=== PATIENT | male | born 1930 | race Caucasian/White ===

== ENCOUNTER 2016-07-05 11:14 | Inpatient (IN) | payer OTHER ==
[~2016-07-05] VITALS: Ht 177.8 cm; Wt 55.7 kg
[~2016-07-05 11:14] MED LIST: CEPH500C2 PO; FLUV80TA PO; LUTEIN PO; MULT-506 PO
[2016-07-05] MEDS ORDERED: PANT1TAB48 PO (12:08)
[2016-07-05] MEDS ORDERED: RANI300T2 PO (12:08)
[2016-07-05 12:27] LABS: HEMATOCRIT 35.7 % (42-52); MEAN CELL VOLUME 86.2 fL (80-100); MEAN CORPUSCULAR HEMOGLOBIN 32.4 pg (25-34); MEAN CORPUSCULAR HGB CONC 37.5 g/dl (32-36); MEAN PLATELET VOLUME 8.5 fL (7.4-10.4); PLATELET COUNT 304 K/uL (130-400); RED BLOOD COUNT 4.14 M/uL (4.7-6.1); WHITE BLOOD COUNT 10.55 K/uL (4.8-10.8)
[2016-07-05 12:30] LABS: BUN/CREATININE RATIO 13.5 (10-20); CREATININE 0.83 mg/dl (0.60-1.40); POTASSIUM 3.8 mmol/L (3.5-5.1)
--- NOTE | 2016-07-05 12:39 | DIAGNOSTIC IMAGING REPORT ---
CT OF THE HEAD WITHOUT CONTRAST CLINICAL HISTORY: Altered mental status. Fall. COMPARISON STUDY: No previous studies for comparison. CT DOSE: 614.27 mGy.cm TECHNIQUE: Helical axial images of the head were obtained without IV contrast. Automated exposure control was utilized for the study. FINDINGS: No acute intracranial hemorrhage, midline shift or mass effect is present. Mild atrophy is noted. Ventricular system is unremarkable for age. Basilar cisterns are patent. There are no extra-axial collections. White matter hypodensity suggests small vessel disease. There are no findings to suggest acute dural sinus thrombosis or acute territorial infarct. A suspected mucous retention cyst within the right maxilla sinus is partially imaged. There may be a mucous retention cyst or polyp within the left frontal sinus. There is no opacification of the mastoid air cells. There are no calvarial fractures. IMPRESSION: No acute intracranial findings. Electronically signed by: Burak Loredo M.D. 07/05/2016 12:38 PM Dictated Date/Time: 07/05/2016 12:32 PM
[2016-07-05 13:02] LABS: PARTIAL THROMBOPLASTIN RATIO 1.1; PROTHROMBIN TIME (PATIENT) 10.7 SECONDS (9.0-12.0)
[2016-07-05] MEDS ORDERED: SODIUM CHLORIDE 0.9% 1000ML 1,000 ML IV STA (13:02)
--- NOTE | 2016-07-05 13:32 | DIAGNOSTIC IMAGING REPORT ---
CHEST ONE VIEW PORTABLE CLINICAL HISTORY: Abdominal pain. Confusion. COMPARISON STUDY: Chest radiograph February 09, 2009. FINDINGS: Lung volumes are normal. There is no pneumothorax or pleural effusion. There is no evidence of pulmonary edema. Cardiomediastinal silhouette is normal. There is minimal nodular opacity projecting over the lateral aspect of the right lower hemithorax. IMPRESSION: Mild indeterminate subpleural nodular opacity projecting over the right lower hemithorax. Electronically signed by: Burak Loredo M.D. 07/05/2016 1:30 PM Dictated Date/Time: 07/05/2016 1:27 PM
--- NOTE | 2016-07-05 14:15 | DIAGNOSTIC IMAGING REPORT ---
CT SCAN OF THE ABDOMEN AND PELVIS WITHOUT IV CONTRAST CLINICAL HISTORY: Left-sided abdominal pain. COMPARISON STUDY: Abdominal CT dated 01/22/2016. TECHNIQUE: CT scan of the abdomen and pelvis is performed from the lung bases to the proximal femora. Images are reviewed in the axial, sagittal, and coronal planes. IV contrast was not administered for this examination as per the referring clinician. Note that the examination was performed in suboptimal fashion without oral and IV contrast Automated dose control exposure was utilized. CT DOSE: 477.62 mGycm FINDINGS: Lung bases: The heart is mildly enlarged and without pericardial effusion. The coronary arteries are densely calcified. Chronic interstitial changes seen at both lung bases. There are new subpleural densities present at both lung bases. No airspace consolidation is identified typical for pneumonia and there is no pleural effusion. There is a small to moderate hiatal hernia. Liver: The unenhanced liver is normal in size, contour, and attenuation. There is no intrahepatic biliary ductal dilatation. A 1.7 cm low-attenuation lesion is suggested in the right lobe of liver on image #64. An additional low-attenuation lesion is suggested in the inferior right lobe on image #126 measuring 1.4 cm. Additional subtle hepatic lesions are suggested. These were not clearly seen previously. A subcentimeter cyst in the left lobe and scattered granulomas are unchanged. Gallbladder: Unremarkable. Spleen: Normal in size and attenuation. There are numerous calcified splenic granulomas. Pancreas: The unenhanced pancreas is atrophic. The pancreatic duct is normal in caliber. There is an ill-defined infiltrative lesion is identified which likely arises from the uncinate process. This measures approximately 4.5 x 3 cm as seen on axial image #145. This is located posterior to the superior mesenteric artery which is partially encased, and the lesion extends inferiorly along the mesentery. Adrenal glands: There is nodularity of the adrenal glands. Kidneys: The unenhanced kidneys are atrophic and without hydronephrosis. A 3 cm staghorn calculus is again seen in the left kidney. Additional punctate nonobstructing left calculi identified. A punctate nonobstructing stone is also seen in the right kidney. There is no evidence of contour deforming renal mass lesion. Abdominal vasculature: The abdominal aorta is normal in course and caliber noting advanced atherosclerotic calcification. Bowel: No bowel obstruction is identified. There is advanced colonic diverticulosis. There is mild wall thickening and pericolonic stranding seen involving the distal descending colon on axial image #297. The appearance is consistent with mild acute diverticulitis. No intraperitoneal free air or abscess is seen. The appendix is normal as visualized. Peritoneum: There is no intraperitoneal free air or abdominal ascites. Lymphadenopathy: There is an enlarged gastrohepatic lymph node seen on image #92 which measures 2.7 x 2.2 cm. Prominent retroperitoneal lymph nodes measure up to 8 mm in short axis. Pelvic viscera: Evaluation of the pelvis is significantly degraded by streak artifact from hip arthroplasties. Postoperative change is seen in the groin bilaterally. Fluid is noted along the right inguinal canal. The bladder is normal as visualized. The prostate gland appears enlarged but is not well-visualized. Skeletal structures: The Skeletal structures are osteopenic. Mild to moderate lumbosacral spondylosis is observed. There is a mild and age indeterminate compression deformity of T11. There are bilateral hip arthroplasties. No lytic or blastic lesions are seen. IMPRESSION: 1. Significantly suboptimal examination without oral and IV contrast. 2. There is advanced colonic diverticulosis with evidence of mild acute diverticulitis involving the distal descending colon. There is no intraperitoneal free air or evidence of abscess. 3. There is a large heterogeneous and ill-defined mass lesion measuring up to at least 4.5 cm which likely arises from the uncinate process of the pancreas. This is posterior to the superior mesenteric artery which it partially encases, and abnormal soft tissue extends inferiorly along the mesentery. This should be considered a pancreatic neoplasm until proven otherwise. 4. There are several subtle low-density hepatic lesions identified. These are new from 01/22/2016 and are highly concerning for hepatic metastatic disease. 5. Enlarged gastrohepatic lymph nodes likely represent metastatic disease. 6. 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 Additional tiny nonobstructing renal calculi are seen bilaterally. 7. There are dense subpleural opacities present at both lung bases, new from 01/22/2016. These could represent pleural-based metastatic lesions or possibly the sequelae of pulmonary infarcts. If there is strong clinical concern for pulmonary emboli then a CT angiogram of the chest should be considered. 8. Cardiomegaly and hiatal hernia. 9. Additional findings as above. Electronically signed by: Duc Britt M.D. 07/05/2016 2:13 PM Dictated Date/Time: 07/05/2016 1:38 PM
[2016-07-05] MEDS ORDERED: PIPERACILLIN/TAZOBACTAM 3.375 GM/100ML D5W IV STA (15:11)
--- NOTE | 2016-07-05 15:38 | EMERGENCY ROOM VISIT NOTE ---
History Report prepared by Monisha: Hamzah Reagan Under the Supervision of: Dr. Jose Georges D.O. First contact with patient: 12:47 Chief Complaint: ALTERED MENTAL STATUS Stated Complaint: FALL/AMS/CONFUSION Nursing Triage Summary: Pt presents via ALS from home where he resides with his . Normally, pt is A&Ox4, ambulates independently. Pt was sitting in his chair this AM when he went to stand up, became weak, and fell, denies injury. Pts noticed pt was confused at this time. Pt presents with altered mental status, alert to person only. Afebrile. Denies pain anywhere. Abrasion noted to right forehead. History of Present Illness The patient is a 85 year old male who presents to the Emergency Room with complaints of a sudden falling incident occurring this morning. The patient's states that he went to stand up and then suddenly felt weak resulting in the patient collapsing and hitting his head. She denies that the patient had any seizure or syncope but admits to confusion following the fall. The patient complains of abdominal pain in his lower left quadrant that began months ago. He reports that the pain is a tightness and he has had a loss of appetite and chronic nausea because of it. The patient states that he had a doctor appointment scheduled for today with Dr. Laird due to the tightness in his abdomen. He denies seeing anyone prior to this appointment for the abdominal pain. The patient's states that he was not capable of writing after the injury. The patient states that he takes Pravastatin for cholesterol, Lutein, and Aspirin. The patient's also reports that he has been frequently hiccupping for the last couple of days. The patient denies any pain, headache, fever, or other medical problems. Source of History: patient, spouse/significant other () Onset: this morning Position: other (global) Timing: other (sudden) Associated Symptoms: + abdominal pain, No LOC, No chest pain, No fevers, No headache, No neck pain Note: Associated symptoms: confusion Review of Systems See HPI for pertinent positives & negatives. A total of 10 systems reviewed and were otherwise negative. Past Medical & Surgical Medical Problems: (1) History of kidney stones Surgical Problems: (1) History of cataract surgery (2) History of hernia repair (3) History of hip surgery (4) History of left knee surgery Family History Patient reports no known family medical history. Social History Smoking Status: Never Smoker Marital Status: Housing Status: lives with significant other Occupation Status: retired Current/Historical Medications Scheduled Aspirin (Aspirin EC Low Dose), 81 MG PO DAILY Lutein-Zeaxanthin (Lutein), 1 CAP PO Q2D Pantoprazole (Protonix), 40 MG PO DAILY Pravastatin (Pravachol ), 20 MG PO DAILY Ranitidine Hcl (Zantac), 300 MG PO HS Allergies Coded Allergies: POLLEN (Verified Allergy, Severe, SNEEZE, 07/05/16) Physical Exam Vital Signs Date Time Temp Pulse Resp B/P Pulse Ox O2 Delivery O2 Flow Rate FiO2 07/05/16 14:56 87 18 144/90 96 Room Air 07/05/16 13:11 87 18 140/83 97 Room Air 07/05/16 13:08 90 07/05/16 11:43 134/78 120/70 106/64 07/05/16 11:29 36.6 93 18 155/85 98 Room Air 07/05/16 11:29 98 Room Air 07/05/16 11:27 92 Physical Exam CONSTITUTIONAL/VITAL SIGNS: Reviewed / noted above. GENERAL: Non-toxic in appearance. INTEGUMENTARY: Warm, dry, and [place]. HEAD: Normocephalic. Abrasion to right front temporal area EYES: without scleral icterus or trauma. ENT/OROPHARYNX: clear and moist. LYMPHADENOPATHY/NECK: Is supple without lymphadenopathy or meningismus. RESPIRATORY: Lungs clear and equal. CARDIOVASCULAR: Regular rate and rhythm. GI/ABDOMEN: Tenderness to palpation of left mid abdominal region. Soft. No organomegaly or pulsatile mass. No rebound or guarding. Normal bowel sounds. EXTREMITIES: Warm and well perfused. BACK: No CVA tenderness. NEUROLOGICAL: Intact without focal deficits. PSYCHIATRIC: normal affect. MUSCULOSKELETAL: Normally developed with good muscle tone. Medical Decision & Procedures ER Provider Diagnostic Interpretation: Radiology results as stated below per my review and radiologist interpretation: CT OF THE HEAD WITHOUT CONTRAST CLINICAL HISTORY: Altered mental status. Fall. COMPARISON STUDY: No previous studies for comparison. CT DOSE: 614.27 mGy.cm TECHNIQUE: Helical axial images of the head were obtained without IV contrast. Automated exposure control was utilized for the study. FINDINGS: No acute intracranial hemorrhage, midline shift or mass effect is present. Mild atrophy is noted. Ventricular system is unremarkable for age. Basilar cisterns are patent. There are no extra-axial collections. White matter hypodensity suggests small vessel disease. There are no findings to suggest acute dural sinus thrombosis or acute territorial infarct. A suspected mucous retention cyst within the right maxilla sinus is partially imaged. There may be a mucous retention cyst or polyp within the left frontal sinus. There is no opacification of the mastoid air cells. There are no calvarial fractures. IMPRESSION: No acute intracranial findings. Electronically signed by: Burak Loredo M.D. 07/05/2016 12:38 PM Dictated Date/Time: 07/05/2016 12:32 PM CHEST ONE VIEW PORTABLE CLINICAL HISTORY: Abdominal pain. Confusion. COMPARISON STUDY: Chest radiograph February 09, 2009. FINDINGS: Lung volumes are normal. There is no pneumothorax or pleural effusion. There is no evidence of pulmonary edema. Cardiomediastinal silhouette is normal. There is minimal nodular opacity projecting over the lateral aspect of the right lower hemithorax. IMPRESSION: Mild indeterminate subpleural nodular opacity projecting over the right lower hemithorax. Electronically signed by: Burak Loredo M.D. 07/05/2016 1:30 PM Dictated Date/Time: 07/05/2016 1:[address] SCAN OF THE ABDOMEN AND PELVIS WITHOUT IV CONTRAST CLINICAL HISTORY: Left-sided abdominal pain. COMPARISON STUDY: Abdominal CT dated 01/22/2016. TECHNIQUE: CT scan of the abdomen and pelvis is performed from the lung bases to the proximal femora. Images are reviewed in the axial, sagittal, and coronal planes. IV contrast was not administered for this examination as per the referring clinician. Note that the examination was performed in suboptimal fashion without oral and IV contrast Automated dose control exposure was utilized. CT DOSE: 477.62 mGycm FINDINGS: Lung bases: The heart is mildly enlarged and without pericardial effusion. The coronary arteries are densely calcified. Chronic interstitial changes seen at both lung bases. There are new subpleural densities present at both lung bases. No airspace consolidation is identified typical for pneumonia and there is no pleural effusion. There is a small to moderate hiatal hernia. Liver: The unenhanced liver is normal in size, contour, and attenuation. There is no intrahepatic biliary ductal dilatation. A 1.7 cm low-attenuation lesion is suggested in the right lobe of liver on image #64. An additional low-attenuation lesion is suggested in the inferior right lobe on image #126 measuring 1.4 cm. Additional subtle hepatic lesions are suggested. These were not clearly seen previously. A subcentimeter cyst in the left lobe and scattered granulomas are unchanged. Gallbladder: Unremarkable. Spleen: Normal in size and attenuation. There are numerous calcified splenic granulomas. Pancreas: The unenhanced pancreas is atrophic. The pancreatic duct is normal in caliber. There is an ill-defined infiltrative lesion is identified which likely arises from the uncinate process. This measures approximately 4.5 x 3 cm as seen on axial image #145. This is located posterior to the superior mesenteric artery which is partially encased, and the lesion extends inferiorly along the mesentery. Adrenal glands: There is nodularity of the adrenal glands. Kidneys: The unenhanced kidneys are atrophic and without hydronephrosis. A 3 cm staghorn calculus is again seen in the left kidney. Additional punctate nonobstructing left calculi identified. A punctate nonobstructing stone is also seen in the right kidney. There is no evidence of contour deforming renal mass lesion. Abdominal vasculature: The abdominal aorta is normal in course and caliber noting advanced atherosclerotic calcification. Bowel: No bowel obstruction is identified. There is advanced colonic diverticulosis. There is mild wall thickening and pericolonic stranding seen involving the distal descending colon on axial image #297. The appearance is consistent with mild acute diverticulitis. No intraperitoneal free air or abscess is seen. The appendix is normal as visualized. Peritoneum: There is no intraperitoneal free air or abdominal ascites. Lymphadenopathy: There is an enlarged gastrohepatic lymph node seen on image #92 which measures 2.7 x 2.2 cm. Prominent retroperitoneal lymph nodes measure up to 8 mm in short axis. Pelvic viscera: Evaluation of the pelvis is significantly degraded by streak artifact from hip arthroplasties. Postoperative change is seen in the groin bilaterally. Fluid is noted along the right inguinal canal. The bladder is normal as visualized. The prostate gland appears enlarged but is not well-visualized. Skeletal structures: The Skeletal structures are osteopenic. Mild to moderate lumbosacral spondylosis is observed. There is a mild and age indeterminate compression deformity of T11. There are bilateral hip arthroplasties. No lytic or blastic lesions are seen. IMPRESSION: 1. Significantly suboptimal examination without oral and IV contrast. 2. There is advanced colonic diverticulosis with evidence of mild acute diverticulitis involving the distal descending colon. There is no intraperitoneal free air or evidence of abscess. 3. There is a large heterogeneous and ill-defined mass lesion measuring up to at least 4.5 cm which likely arises from the uncinate process of the pancreas. This is posterior to the superior mesenteric artery which it partially encases, and abnormal soft tissue extends inferiorly along the mesentery. This should be considered a pancreatic neoplasm until proven otherwise. 4. There are several subtle low-density hepatic lesions identified. These are new from 01/22/2016 and are highly concerning for hepatic metastatic disease. 5. Enlarged gastrohepatic lymph nodes likely represent metastatic disease. 6. 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 Additional tiny nonobstructing renal calculi are seen bilaterally. 7. There are dense subpleural opacities present at both lung bases, new from 01/22/2016. These could represent pleural-based metastatic lesions or possibly the sequelae of pulmonary infarcts. If there is strong clinical concern for pulmonary emboli then a CT angiogram of the chest should be considered. 8. Cardiomegaly and hiatal hernia. 9. Additional findings as above. Electronically signed by: Duc Britt M.D. 07/05/2016 2:13 PM Dictated Date/Time: 07/05/2016 1:38 PM Laboratory Results 07/05/16 11:10 07/05/16 11:10 Test 07/05/16 11:10 07/05/16 11:41 07/05/16 12:35 Red Blood Count 4.14 M/uL (4.7-6.1) Mean Corpuscular Volume 86.2 fL (80-100) Mean Corpuscular Hemoglobin 32.4 pg (25-34) Mean Corpuscular Hemoglobin Concent 37.5 g/dl (32-36) RDW Standard Deviation 41.2 fL (36.4-46.3) RDW Coefficient of Variation 13.0 % (11.5-14.5) Mean Platelet Volume 8.5 fL (7.4-10.4) Anion Gap 11.0 mmol/L (3-11) Est Creatinine Clear Calc Drug Dose 56.8 ml/min Estimated GFR () 93.6 Estimated GFR (Non- 80.8 BUN/Creatinine Ratio 13.5 (10-20) Calcium Level 9.0 mg/dl (8.5-10.1) Total Bilirubin 0.7 mg/dl (0.2-1) Aspartate Amino Transf (AST/SGOT) 19 U/L (15-37) Alanine Aminotransferase (ALT/SGPT) 21 U/L (12-78) Alkaline Phosphatase 116 U/L (45-117) Total Protein 7.2 gm/dl (6.4-8.2) Albumin 3.6 gm/dl (3.4-5.0) Globulin 3.6 gm/dl (2.5-4.0) Albumin/Globulin Ratio 1.0 (0.9-2) Lipase 406 U/L (73-393) Bedside Glucose 129 mg/dl (70-99) Prothrombin Time 10.7 SECONDS (9.0-12.0) Prothromb Time International Ratio 1.0 (0.9-1.1) Activated Partial Thromboplast Time 29.2 SECONDS (21.0-31.0) Partial Thromboplastin Ratio 1.1 Laboratory results as stated above per my review. Medications Administered Medications (Trade) Dose Ordered Sig/El Route Start Time Stop Time Status Last Admin Dose Admin Sodium Chloride (Nss 1000ml) 1,000 ml @ 999 mls/hr Q1H1M STAT IV 07/05/16 13:02 07/05/16 14:02 DC 07/05/16 13:12 999 MLS/HR Piperacillin Sod/ Tazobactam Sod (Zosyn Iv) 3.375 gm NOW STAT IV 07/05/16 15:11 07/05/16 15:12 DC 07/05/16 15:29 3.375 GM ECG Indication: altered mental status Rate (beats per minute): 93 Rhythm: normal sinus Findings: no acute ischemic change, no ectopy ED Course 1256: Previous medical records were reviewed. The patient was evaluated in room C06. A complete history and physical examination was performed. 1302: Sodium Chloride 1000 ml @ 999 mls/hr IV. 1508: On reevaluation, the patient is doing better. I discussed the results and findings with Dr. Shyanne Presley. She verbalized agreement of accepting the patient. The patient will be evaluated for further management and care. 1511: Zosyn IV 3.375 gm IV. Medical Decision Blood pressure Screening: Patient was found to have an elevated blood pressure and was referred to their primary doctor for recheck and further treatment. Medication Reconciliation: I attest that I have personally reviewed the patient' s current medication list. Differential includes acute coronary syndrome, myocardial infarction, CVA, TIA, anemia, infection, pneumonia, UTI, pyelonephritis, poor nutrition, dehydration, electrolyte disturbance,hypoglycemia. This is an 85-year-old male who presents to the ED with a chief complaint of a near syncopal episode. According to the , the patient got up out of a chair and then became limp and fell. The patient struck his head on the right side on the floor. He did not lose complete consciousness according to the . The patient presents to the ED by ambulance. He has no specific complaints at this time. He does report having several weeks worth of abdominal discomfort as well as decrease in appetite as well as decreased by mouth intake. His exam revealed some mild tenderness in the left mid abdominal region. CT scan of a abdomen revealed findings suggesting an acute mild diverticulitis. There is also a pancreatic mass that is concerning for pancreatic neoplasm with metastases to the liver and lungs. The patient's CBC was unremarkable. Sodium was 121 and chloride was 88. EKG shows a normal sinus rhythm. Chest x-ray reveals some nodules in the right lower thorax. The patient was hydrated with IV fluids. He was given IV Zosyn. Because of his symptoms and abnormal findings, the patient was seen by the hospitalist for further inpatient evaluation. Consults Time Called: 1508 Consulting Physician: Dr. Shyanne Presley Returned Call: [phone] On reevaluation, the patient is doing better. I discussed the results and findings with Dr. Shyanne Presley. She verbalized agreement of accepting the patient. The patient will be evaluated for further management and care. Impression Primary Impression: Hyponatremia Additional Impressions: Diverticulitis Pancreatic mass Anorexia Possible pancreatic cancer with mets Scribe Attestation The scribe's documentation has been prepared under my direction and personally reviewed by me in its entirety. I confirm that the note above accurately reflects all work, treatment, procedures, and medical decision making performed by me. Departure Information Referrals Tejas Rosenberg D.O. (PCP) Patient Instructions My [facility] Problem Qualifiers
[2016-07-05] MEDS ORDERED: ACETAMINOPHEN 325 MG TAB PO PRN (15:45)
[2016-07-05] MEDS ORDERED: ONDANSETRON INJ 2 MG/ML 2 ML VIAL IV PRN (15:45)
[2016-07-05] MEDS ORDERED: PRAV20TA PO (15:57)
[2016-07-05] MEDS ORDERED: ASPEC81 PO (15:57)
[2016-07-05] MEDS ORDERED: LUTE15CA PO (15:57)
[2016-07-05] MEDS ORDERED: NON-FORMULARY MEDICATION (Lutein-Zeaxanthin (Lutein) 1 CAP) PO SCH (16:00)
[2016-07-05 16:02] VITALS: BP 167/83; PULSE 85; TEMP 36.8; O2SAT 98; Ht 177.8 cm; Wt 55.7 kg
[2016-07-05] MEDS ORDERED: PIPERACILL/TAZOBAC CONSULT ACTIVE PRN (17:00)
[2016-07-05] MEDS: SODIUM CHLORIDE 0.9% 1000ML 1,000 ML IV SCH (17:15)
[2016-07-05 19:38] VITALS: BP 178/88; PULSE 86; TEMP 36.4; O2SAT 96
--- NOTE | 2016-07-05 19:58 | History and Physical ---
History & Physical Date & Time of Service: July 05, 2016 ~ 15:30 Chief Complaint: Weakness, Fall Primary Care Physician: Jonathan Nation III, M.D. History of Present Illness 85 year old male who presents to the ER with weakness and fall. Patient reports he does not remember what exactly happened today. Some history is obtained from his . Patient has been being seen by his PCP for the past month for abdominal pain. Per outpatient documentation, patient has been reporting epigastric discomfort. He was started on a PPI and H2 tanmay. He also had an RUQ US that was unremarkable. Patient reports to be pain has been in the LLQ and is exacerbated by eating. He reports his PO intake has been poor since every time he eats it causes pain. Per patient's , patient was sitting at the table filling out some paperwork when he asked her to complete it because he couldn't. He said he was too weak. He then got up to go upstairs and she reports he was very wobbly and had a distant look in his eyes. He then fell onto the stairs and hit his head. He did not loose consciousness. Patient reports he has been having normal bowel movements. He notes a 20 pound weight loss in the past year. He reports his appetite has been good. No nausea or vomiting. He denies chest pain and shortness of breath. He denies fever and chills. No urinary symptoms. In the ER, patient's sodium level is found to be 121. Orthostatic blood pressures were positive. 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 Patient was given IVF and IV Zosyn. Past Medical/Surgical History Medical Problems: (1) Dyslipidemia Status: Chronic Surgical Problems: (1) H/O arthroscopic knee surgery Status: Chronic (2) H/O bilateral hip replacements Status: Chronic (3) H/O inguinal hernia repair Status: Chronic (4) History of cataract surgery Status: Resolved (5) History of cataract surgery Status: Chronic (6) History of hernia repair Status: Resolved (7) History of hip surgery Status: Resolved (8) History of left knee surgery Status: Resolved Family History non contributory due to patient's advanced age Social History Smoking Status: Former Smoker Alcohol Use: none Marital Status: Housing status: lives with family Immunizations History of Influenza Vaccine: Yes Influenza Vaccine Date: Nov 05, 2015 History of Tetanus Vaccine?: Yes Tetanus Immunization Date: Jan 21, 2014 History of Pneumococcal: Yes Pneumococcal Date: Jul 22, 2014 Multi-Drug Resistant Organisms History of MDRO: No Allergies Coded Allergies: POLLEN (Verified Allergy, Severe, SNEEZE, 07/05/16) Home Medications Scheduled Aspirin (Aspirin EC Low Dose), 81 MG PO DAILY Lutein-Zeaxanthin (Lutein), 1 CAP PO Q2D Pantoprazole (Protonix), 40 MG PO DAILY Pravastatin (Pravachol ), 20 MG PO DAILY Ranitidine Hcl (Zantac), 300 MG PO HS Review of Systems ROS per HPI, all other systems reviewed and negative Physical Exam Vital Signs Date Time Temp Pulse Resp B/P Pulse Ox O2 Delivery O2 Flow Rate FiO2 07/05/16 16:34 88 18 148/86 96 07/05/16 16:09 88 20 146/86 98 07/05/16 16:02 36.8 85 18 167/83 98 Room Air 07/05/16 14:56 87 18 144/90 96 Room Air 07/05/16 13:11 87 18 140/83 97 Room Air 07/05/16 13:08 90 07/05/16 11:43 134/78 120/70 106/64 07/05/16 11:29 36.6 93 18 155/85 98 Room Air 07/05/16 11:29 98 Room Air 07/05/16 11:27 92 General Appearance: no apparent distress Head: normocephalic Eyes: normal inspection ENT: + pertinent finding (TYONEK) Neck: supple, no JVD Respiratory/Chest: lungs clear, normal breath sounds, no respiratory distress Cardiovascular: regular rate, rhythm, no edema, normal peripheral pulses Abdomen/GI: normal bowel sounds, non tender, soft Extremities/Musculoskelatal: normal inspection, no calf tenderness Neurologic/Psych: no motor/sensory deficits, alert, normal mood/affect, oriented x 3 Skin: normal color, warm/dry Diagnostics Laboratory Results Results Past 24 Hours Test 07/05/16 11:10 07/05/16 11:41 07/05/16 12:35 07/05/16 17:25 Range/Units White Blood Count 10.55 4.8-10.8 K/uL Red Blood Count 4.14 4.7-6.1 M/uL Hemoglobin 13.4 14.0-18.0 g/dL Hematocrit 35.7 42-52 % Mean Corpuscular Volume 86.2 80-100 fL Mean Corpuscular Hemoglobin 32.4 25-34 pg Mean Corpuscular Hemoglobin Concent 37.5 32-36 g/dl RDW Standard Deviation 41.2 36.4-46.3 fL RDW Coefficient of Variation 13.0 11.5-14.5 % Platelet Count 304 130-400 K/uL Mean Platelet Volume 8.5 7.4-10.4 fL Sodium Level 121 123 136-145 mmol/L Potassium Level 3.8 3.5-5.1 mmol/L Chloride Level 88 98-107 mmol/L Carbon Dioxide Level 22 21-32 mmol/L Anion Gap 11.0 3-11 mmol/L Blood Urea Nitrogen 11 7-18 mg/dl Creatinine 0.83 0.60-1.40 mg/dl Est Creatinine Clear Calc Drug Dose 56.8 ml/min Estimated GFR () 93.6 Estimated GFR (Non- 80.8 BUN/Creatinine Ratio 13.5 10-20 Random Glucose 120 70-99 mg/dl Osmolality 250 280-300 mOsm/kg Calcium Level 9.0 8.5-10.1 mg/dl Total Bilirubin 0.7 0.2-1 mg/dl Aspartate Amino Transf (AST/SGOT) 19 15-37 U/L Alanine Aminotransferase (ALT/SGPT) 21 12-78 U/L Alkaline Phosphatase 116 45-117 U/L Total Protein 7.2 6.4-8.2 gm/dl Albumin 3.6 3.4-5.0 gm/dl Globulin 3.6 2.5-4.0 gm/dl Albumin/Globulin Ratio 1.0 0.9-2 Lipase 406 73-393 U/L Bedside Prothrombin Time INR 0.9 0.9-1.1 Bedside Glucose 129 70-99 mg/dl Prothrombin Time 10.7 9.0-12.0 SECONDS Prothromb Time International Ratio 1.0 0.9-1.1 Activated Partial Thromboplast Time 29.2 21.0-31.0 SECONDS Partial Thromboplastin Ratio 1.[address] HEAD IMPRESSION: No acute intracranial findings. CT ABD/PELVIS IMPRESSION: 1. Significantly suboptimal examination without oral and IV contrast. 2. There is advanced colonic diverticulosis with evidence of mild acute diverticulitis involving the distal descending colon. There is no intraperitoneal free air or evidence of abscess. 3. There is a large heterogeneous and ill-defined mass lesion measuring up to at least 4.5 cm which likely arises from the uncinate process of the pancreas. This is posterior to the superior mesenteric artery which it partially encases, and abnormal soft tissue extends inferiorly along the mesentery. This should be considered a pancreatic neoplasm until proven otherwise. 4. There are several subtle low-density hepatic lesions identified. These are new from 01/22/2016 and are highly concerning for hepatic metastatic disease. 5. Enlarged gastrohepatic lymph nodes likely represent metastatic disease. 6. 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 Additional tiny nonobstructing renal calculi are seen bilaterally. 7. There are dense subpleural opacities present at both lung bases, new from 01/22/2016. These could represent pleural-based metastatic lesions or possibly the sequelae of pulmonary infarcts. If there is strong clinical concern for pulmonary emboli then a CT angiogram of the chest should be considered. 8. Cardiomegaly and hiatal hernia. 9. Additional findings as above. CXR IMPRESSION: Mild indeterminate subpleural nodular opacity projecting over the right lower hemithorax. 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 possible pulmonary infarcts - noted no chest pain, shortness of breath, tachycardia, or hypoxia - mass is partially encasing the SMA - will consult vascular - LFTs WNL, lipase 406 - GI consult - case discussed with YELENA Sotomayor - will keep NPO after midnight for possible EUS in AM - oncology consult placed DYSLIPIDEMIA - continue statin DVT PROPHYLAXIS - SQ Lovenox CODE STATUS - Patient is a full code as per my discussion with him. DISPO - In my clinical judgment this beneficiary meets acute admission criteria, established by [facility], that includes being hospitalized through two midnights. ATTENDING ADDENDUM: I have seen the patient and have discussed the case with the provider above. I agree with the assessment and plan as stated. Cont to monitor serum Na q2hr while giving IVF overnight. Will not allow Na to rise >8 MEq in 24 hours. As above, this is likely multifactorial with clinical picture pointing toward hypovolemia and dehydration. Agree with empiric coverage with Zosyn with invasive cancer and acute diverticulituis. Concern with pancreatic neoplasm noted to be encasing SMA on CT scan and getting vascular involved to ensure good blood flow to intestines. CT reading with concern for PE/pulm infarct, however, patient is not working to breathe, hypoxic, nor does he have any pain in his chest. Feel this is less likely, also because the CXR favored subpleural nodules. On exam there was minimal abdominal discomfort, no distension, guarding or rebound and normoactive BS. He reports having just had dinner consisting of clear liquids and did well with this with min abdominal pain. Discussed the plan with the patient who verbalized understanding of the possibly etiology and what we plan to do about it. All questions were answered. DO Soham Level of Care Telemetry Advanced Directives Existing Living Will: Yes Existing Power of Metal Pattern Maker: Yes Resuscitation Status FULL RESUSCITATION VTE Prophylaxis VTE Risk Assessment Done? Y/N: Yes Risk Level: Moderate Given or contraindicated: SCD's (upcoming procedure in am.)
[2016-07-05 20:00] VITALS: O2SAT 96
[2016-07-05] MEDS: RANITIDINE HCL 150 MG TAB PO SCH (21:50)
[2016-07-05] MEDS: ENOXAPARIN 40 MG/0.4 ML SYR SC SCH (21:51)
[2016-07-05 23:42] VITALS: BP 170/82; PULSE 95; TEMP 36.6; O2SAT 95
[2016-07-05] MEDS: PIPERACILL/TAZOBAC IV 3.375 GM in DEXTROSE 5% 100ML 100 ML IV SCH (23:49)
[2016-07-06] VITALS: O2SAT 96
[2016-07-06 04:00] VITALS: BP 165/84; PULSE 89; TEMP 36.4; O2SAT 95; O2SAT 96
[2016-07-06] MEDS: SODIUM CHLORIDE 0.9% 1000ML 1,000 ML IV SCH (05:45)
[2016-07-06 08:01] VITALS: BP 161/85; PULSE 79; TEMP 36.8; O2SAT 96
[2016-07-06] MEDS ORDERED: ASPIRIN 81 MG ECTAB PO SCH (09:00)
[2016-07-06] MEDS ORDERED: PRAVASTATIN SOD 20 MG TAB PO SCH (09:00)
[2016-07-06] MEDS: PIPERACILL/TAZOBAC IV 3.375 GM in DEXTROSE 5% 100ML 100 ML IV SCH ×2 (09:15→16:03)
[2016-07-06] MEDS: PANTOprazole SOD 40 MG TAB PO SCH (09:17)
[2016-07-06 11:17] VITALS: BP 131/75; PULSE 98; TEMP 36.4; O2SAT 91
[2016-07-06] MEDS ORDERED: OPTIRAY 320 IV PRN (11:45)
--- NOTE | 2016-07-06 12:49 | Gastrointestinal Consultation ---
Gastrointestinal Consultation Date of Consultation: Jul 06, 2016 Attending Physician: Daya Truong Consulting Physician: Sweta Cabrera Reason for Consultation: New pancreas mass History of Present Illness Patient is a 85 year old male who is currently admitted after noted to have weakness and falling at home. He was at his usual state of health, even managed to mow the lawn 2 days ago but yesterday noted pt to be weak and when he went up stairs he fell and hit his head. CT head negative. He has also been losing weight, having decreased appetite. He reports 20 lbs weight loss in last year. He noticed L sided abd pain after eating. Denies any bowel habit changes including diarrhea, constipation. Denies any n/v, fever, chills. Admission labs showed no leukocytosis, mild anemia, CMP showed hyponatremia, normal LFTs and mildly elevated Lipase at 403. He had CT abd/pelvis w/o contrast which showed diverticulitis, new finding of pancreatic mass suspicious for neoplasm w liver and lung mets, lymphadenopathy. Past Medical/Surgical History Medical Problems: (1) Renal colic on right side Status: Acute Past Medical History: See above, dyslipidemia Family History Patient reports no known family medical history. Social History Smoking Status: Former Smoker Alcohol Use: none Drug Use: none Marital Status: Housing Status: lives with significant other Allergies Coded Allergies: POLLEN (Verified Allergy, Severe, SNEEZE, 07/05/16) Current Medications Home Meds and Scripts Medications Dose Route/Sig Max Daily Dose Days Date Category Lutein (Lutein-Zeaxanthin) 1 Cap Cap 1 Cap PO Q2D 07/05/16 Reported Aspirin EC Low Dose (Aspirin) 81 Mg Ectab 81 Mg PO DAILY 07/05/16 Reported Pravachol (Pravastatin Sodium) 20 Mg Tab 20 Mg PO DAILY 07/05/16 Reported Protonix (Pantoprazole) 40 Mg Tab 40 Mg PO DAILY 07/05/16 Reported Zantac (Ranitidine HCl) 300 Mg Tab 300 Mg PO HS 07/05/16 Reported Review of Systems Constitutional: + weight loss, + weakness, No fever, No chills Respiratory: No cough, No shortness of breath Abdomen: + pain, No nausea, No vomiting Neuro: + see HPI Physical Exam Date Time Temp Pulse Resp B/P (MAP) Pulse Ox O2 Delivery O2 Flow Rate FiO2 07/06/16 11:17 36.4 98 18 131/75 (93) 91 Room Air 07/06/16 08:01 36.8 79 18 161/85 (110) 96 Room Air 07/06/16 04:00 96 Room Air 07/06/16 04:00 36.4 89 18 165/84 (111) 95 Room Air 07/06/16 00:00 96 Room Air 07/05/16 23:42 36.6 95 18 170/82 (111) 95 Room Air 07/05/16 20:00 96 Room Air 07/05/16 19:38 36.4 86 18 178/88 (118) 96 Room Air 07/05/16 16:34 88 18 148/86 96 07/05/16 16:09 88 20 146/86 98 07/05/16 16:02 36.8 85 18 167/83 98 Room Air 07/05/16 14:56 87 18 144/90 96 Room Air 07/05/16 13:11 87 18 140/83 97 Room Air 07/05/16 13:08 90 General Appearance: + thin Eyes: normal inspection, PERRL, EOMI Neck: supple, no JVD, trachea midline Respiratory/Chest: no respiratory distress, no accessory muscle use, + decreased breath sounds Cardiovascular: regular rate, rhythm, no gallop, no murmur Abdomen: normal bowel sounds, soft, + tenderness (LUQ area ) Extremities: normal inspection, no pedal edema Neurologic/Psych: alert, normal mood/affect, oriented x 3, + pertinent finding (very hard of hearing) Skin: normal color, no jaundice, no rash Laboratory Results Last 24 Hours Test 07/05/16 12:35 07/05/16 17:25 07/05/16 20:00 07/05/16 22:00 Prothrombin Time 10.7 SECONDS Prothromb Time International Ratio 1.0 Activated Partial Thromboplast Time 29.2 SECONDS Partial Thromboplastin Ratio 1.1 Sodium Level 123 mmol/L 124 mmol/L 123 mmol/L Test 07/05/16 22:45 07/05/16 23:20 07/06/16 02:07 07/06/16 04:35 Urine Osmolality 447 mOms/kg Urine Random Creatinine 47.0 mg/dl Urine Random Sodium 137 mEq/L Sodium Level 125 mmol/L 122 mmol/L 123 mmol/L Test 07/06/16 06:00 Sodium Level 123 mmol/L Impression Patient is a 85 year old male admitted after a fall, found to be hyponatremia. Also has weight loss for over a year now, L sided abd pain. CT showed diverticulitis, pancreas mass suspicious for neoplasm w liver and lung mets, lymphadenopathy. LFTs normal, Lipase mildly up. Previous CT in January 2016 and outpt RUQ u/s on 05/22 w/o these findings. Plan - OK to start regular diet - Will obtain further imaging w contrasted CT scan - Likely will need EUS bx of panc mass but this can be done in outpt setting. - Heme onc consulted - Continue antibx for diverticulitis.
--- NOTE | 2016-07-06 13:55 | Medical Consult ---
Consultation Date of Consultation: Jul 06, 2016. Attending Physician: Daya Truong M.D. Reason for Consultation: Pancreatic mass found on imaging for intermittent abdominal pain History of Present Illness Mr. Chaudhari is an 85 yo M new to the consulting Medical Oncology Service. He is currently hospitalized after he experience generalized weakness and fell on 07/05. He hit his head, but did not lose consciousness. He also has been having abdominal pain for the past month apparently. 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 He was found to have orthostatic issue. His CT of the abdomen/pelvis from admission shows a mild acute diverticulitis and a pancreatic mass with suspicion for hepatic and lung metastases. Workup prior to this hospitalization included RUQ ultrasound that was unremarkable. He had a reported 30 pound weight loss in the past year. He is currently on IVF and IV Zosyn. 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 An endoscopic ultrasound by GI has been recommended but they are deferring this to an outpatient procedure as patient is wanting to return home. A repeat CT scan with contrast is to be obtained today to better characterize the pancreatic mass. Additional history obtained from the patient at bedside. History was limited due to patient 's hearing loss and confusion with anything more complicated than basic questioning and information. No family was at bedside to supplement history. He reports feeling "fine" today. He has not had abdominal pain in a week. He is not having nausea or vomiting. He reports a bowel movement today. He reports a decreased appetite. He has not noted bleeding from any sites. He does not have respiratory complaints. He has no prior history of cancer or blood/ clotting disorders. He reports a brother who had a history of malignancy. Past Medical/Surgical History Medical Problems: (1) Renal colic on right side Status: Acute Family History Patient reports no known family medical history. Social History Smoking Status: Former Smoker Alcohol Use: none Drug Use: none Marital Status: Housing Status: lives with significant other Allergies Coded Allergies: POLLEN (Verified Allergy, Severe, SNEEZE, 07/05/16) Current Inpatient Medications Current Inpatient Medications Medications (Trade) Dose Ordered Sig/El Route Start Time Stop Time Status Last Admin Dose Admin Enoxaparin Sodium (Lovenox Inj) 40 mg Q24H SC 07/05/16 21:00 08/04/16 20:59 07/05/16 21:51 40 MG Sodium Chloride 1,000 ml @ 80 mls/hr [id number] IV 07/05/16 17:15 08/04/16 15:44 07/06/16 05:45 80 MLS/HR Acetaminophen (Tylenol Tab) 650 mg Q4H PRN PO 07/05/16 15:45 08/04/16 15:44 Ondansetron HCl (Zofran Inj) 4 mg Q6H PRN IV 07/05/16 15:45 08/04/16 15:44 Aspirin (Ecotrin Tab) 81 mg DAILY PO 07/06/16 09:00 08/05/16 08:59 07/06/16 09:17 81 MG Pantoprazole Sodium (Protonix Tab) 40 mg DAILY PO 07/06/16 09:00 08/05/16 08:59 07/06/16 09:17 40 MG Pravastatin Sodium (Pravachol Tab) 20 mg DAILY PO 07/06/16 09:00 08/05/16 08:59 07/06/16 09:17 20 MG Ranitidine HCl (zANTac TAB) 300 mg HS PO 07/05/16 21:00 08/04/16 20:59 07/05/16 21:50 300 MG Piperacillin Sod/ Tazobactam Sod (Consult) 1 ea UD PRN N/A 07/05/16 17:00 08/04/16 16:59 Piperacillin Sod/ Tazobactam Sod 3.375 gm/Dextrose 115 ml @ 28.75 mls/ hr Q8H IV 07/06/16 00:00 07/16/16 00:00 07/06/16 09:15 28.75 MLS/HR Ioversol (Optiray 320) 125 ml UD PRN IV 07/06/16 11:45 07/10/16 11:44 Review of Systems Constitutional: + weakness, + fatigue, No fever ENT: + hearing loss Respiratory: No cough, No shortness of breath Cardiovascular: No chest pain, No edema Abdomen: + pain, No nausea, No vomiting, No diarrhea, No constipation, No GI bleeding Musculoskeletal: No calf pain Genitourinary - Male: No hematuria Neurologic: + memory loss, + weakness Hematologic / Lymphatic: No abnormal bleeding/bruising, No clotting problems Integumentary: No rash Physical Exam Date Time Temp Pulse Resp B/P (MAP) Pulse Ox O2 Delivery O2 Flow Rate FiO2 07/06/16 12:00 Room Air 07/06/16 11:17 36.4 98 18 131/75 (93) 91 Room Air 07/06/16 08:01 36.8 79 18 161/85 (110) 96 Room Air 07/06/16 08:00 Room Air 07/06/16 04:00 96 Room Air 07/06/16 04:00 36.4 89 18 165/84 (111) 95 Room Air 07/06/16 00:00 96 Room Air 07/05/16 23:42 36.6 95 18 170/82 (111) 95 Room Air 07/05/16 20:00 96 Room Air 07/05/16 19:38 36.4 86 18 178/88 (118) 96 Room Air 07/05/16 16:34 88 18 148/86 96 07/05/16 16:09 88 20 146/86 98 07/05/16 16:02 36.8 85 18 167/83 98 Room Air 07/05/16 14:56 87 18 144/90 96 Room Air General Appearance: no apparent distress, + thin Respiratory/Chest: lungs clear, no respiratory distress, no accessory muscle use Cardiovascular: no edema, + pertinent finding (distant heart sounds) Abdomen/GI: normal bowel sounds, non tender Extremities/Musculoskelatal: no calf tenderness, no pedal edema Neurologic/Psych: alert, oriented x 3 Skin: warm/dry, no rash Laboratory Results 07/05/16 11:10 07/05/16 11:10 07/05/16 17:25 07/05/16 20:00 07/05/16 22:00 07/05/16 23:20 07/06/16 02:07 07/06/16 04:35 07/06/16 06:00 Test 07/05/16 11:10 07/05/16 11:41 07/05/16 12:35 07/05/16 22:45 Red Blood Count 4.14 M/uL (4.7-6.1) Mean Corpuscular Volume 86.2 fL (80-100) Mean Corpuscular Hemoglobin 32.4 pg (25-34) Mean Corpuscular Hemoglobin Concent 37.5 g/dl (32-36) RDW Standard Deviation 41.2 fL (36.4-46.3) RDW Coefficient of Variation 13.0 % (11.5-14.5) Mean Platelet Volume 8.5 fL (7.4-10.4) Anion Gap 11.0 mmol/L (3-11) Est Creatinine Clear Calc Drug Dose 56.8 ml/min Estimated GFR () 93.6 Estimated GFR (Non- 80.8 BUN/Creatinine Ratio 13.5 (10-20) Osmolality 250 mOsm/kg (280-300) Calcium Level 9.0 mg/dl (8.5-10.1) Total Bilirubin 0.7 mg/dl (0.2-1) Aspartate Amino Transf (AST/SGOT) 19 U/L (15-37) Alanine Aminotransferase (ALT/SGPT) 21 U/L (12-78) Alkaline Phosphatase 116 U/L (45-117) Total Protein 7.2 gm/dl (6.4-8.2) Albumin 3.6 gm/dl (3.4-5.0) Globulin 3.6 gm/dl (2.5-4.0) Albumin/Globulin Ratio 1.0 (0.9-2) Lipase 406 U/L (73-393) Bedside Prothrombin Time INR 0.9 (0.9-1.1) Bedside Glucose 129 mg/dl (70-99) Prothrombin Time 10.7 SECONDS (9.0-12.0) Prothromb Time International Ratio 1.0 (0.9-1.1) Activated Partial Thromboplast Time 29.2 SECONDS (21.0-31.0) Partial Thromboplastin Ratio 1.1 Urine Osmolality 447 mOms/kg (500-800) Urine Random Creatinine 47.0 mg/dl Urine Random Sodium 137 mEq/L Head CT from 07/05/2016: No acute intracranial hemorrhage, midline shift or mass effect. Mild atrophy. Ventricular system unremarkable for age. No extra- axial collections. White matter hypodensities suggests small-vessel disease. No findings to suggest acute dural sinus thrombosis or acute territorial infarct. No calvarial fractures. Abdomen/pelvis CT from 07/05/2016: Heart is mildly enlarged and without pericardial effusion. Chronic interstitial changes at both lung bases. New subpleural densities present both lung bases (metastatic disease vs pulmonary infarcts). No airspace consolidation and no pleural effusion. No intrahepatic biliary ductal dilatation. 1.7 cm low attenuation lesion in the right lobe of the liver. An additional low attenuation lesion in the inferior right lobe measuring 1.4 cm. Additional subtle hepatic lesions. Subcentimeter cyst in the left lobe and scattered granulomas are unchanged. Numerous splenic granulomas. Unenhanced pancreas is atrophic. Ill-defined infiltrative lesion that is likely arising from the uncinate process. Measuring about 4.5 x 3 cm. It is located posterior to the superior mesenteric artery which is partially encased in the lesion extends inferiorly along the mesentery. Nodularity of the adrenal glands. Mild wall thickening and pericolonic stranding involving the distal descending colon consistent with mild acute diverticulitis. Enlarged gastrohepatic lymph node measuring 2.7 x 2.2 cm. Prominent retroperitoneal lymph nodes measuring up to 8 mm. No lytic or blastic lesions. Chest x-ray from 07/05/2016: Mild indeterminate subpleural nodular opacity projecting over the right lower hemithorax. Assessment & Plan 1. Pancreatic mass, maximal 4.5 cm in dimension, with intra-abdominal adenopathy , liver and lung lesions suspicious for metastatic disease * Discussed with patient that he almost definitively has malignancy, favoring pancreatic primary at this time * EUS is planned for outpatient as patient is wanting to return home * General surgery to consult with patient due to encasement of SMA to see if at critical point, vascular surgery unavailable to do so prior to patient's planned discharge * Discussed with patient was biopsy is obtained on planned EUS and primary is confirmed, discussion of chemotherapy specifics will be warranted * Prior to admission, patient seems to have had an ECOG of around 1 * Of note, he has becoming progressively weaker, losing weight in cachexia of malignancy * Consider to draw Ca 19-9 while patient is hospitalized, if elevated, would be consistent with pancreatic primary 2. Generalized weakness * Likely multifactorial * Advanced malignancy * Hyponatremia * Anorexia, cachexia 3. S/p fall with no major traumatic injury 4. Hyponatremia * SIADH of malignancy less likely unless patient has an extrapulmonary small cell carcinoma * Correction per hospitalist team Thanks for the consult. Patient will need a follow up with medical oncology within 1-2 weeks of discharge. Will continue to follow along while patient is hospitalized. Dr. Nix is the attending medical oncologist on this case. I performed history and physical examination of the patient (07/06/2016). I have discussed the patient's case, impression and plan with Fanny Law PA-C. Her note reflects my findings and plan. In summary, he is a 85-year-old male, who presented with some generalized weakness and the fall, found to have hyponatremia, now noticed to have pancreatic ulcer seen at process mass, multiple liver lesions, lung base lesions which is suspicious for metastatic lesions, I reviewed with the patient 's who was at bedside regarding the imaging studies, suspecting pancreatic cancer with metastatic disease but will need diagnostic workup in the form of biopsy from the liver lesion or pancreatic lesion. Agree about getting CA 19-9 level.. Will see him in the clinic after the diagnostic procedure. Dr. Mike Nix Hem/Onc (This note was completed using the dictation program Fluency Direct. As such, there may be misspellings, word substitutions, or other variations that should not change the essence of the clinical content of this encounter note. If there is need for further clarification, please direct questions to the provider listed above.)
--- NOTE | 2016-07-06 14:47 | DIAGNOSTIC IMAGING REPORT ---
CT SCAN OF THE ABDOMEN AND PELVIS WITH IV CONTRAST CLINICAL HISTORY: Pancreatic mass. Abdominal pain. COMPARISON STUDY: Abdominal CT scans dated 07/05/2016 and 01/22/2016. TECHNIQUE: Following the IV administration of 118 cc of Optiray 320, CT scan of the abdomen and pelvis is performed from the lung bases to the proximal femora. Images are reviewed in the axial, sagittal, and coronal planes. IV contrast was administered without complication Automated dose control exposure was utilized. The examination is significantly degraded by motion artifact. CT DOSE: 459.28 mGy.cm FINDINGS: Lung bases: The heart is mildly enlarged and without pericardial effusion. The coronary arteries are densely calcified. Chronic interstitial changes seen at both lung bases. Subpleural densities at both lung bases are unchanged from yesterday. No airspace consolidation is identified typical for pneumonia and there is no pleural effusion. There is a small to moderate hiatal hernia. Fluid fills the distal esophagus which appears to be thick walled. Liver: The contrast-enhanced liver is normal in size, contour, and attenuation. There is no intrahepatic biliary ductal dilatation. The hepatic veins and portal veins are patent. A subcentimeter cyst in the left lobe and scattered granulomas are unchanged. There are numerous (greater than 10) low-attenuation hepatic lesions consistent with multifocal hepatic metastatic disease. The largest lesion is in the left lobe as seen on image #79 and measures 2.5 cm. Gallbladder: Unremarkable. Spleen: Normal in size and attenuation. There are numerous calcified splenic granulomas. Pancreas: The pancreas is moderately atrophic. The pancreatic duct is normal in caliber. There is unchanged appearance of an ill-defined/infiltrative lesion which likely arises from the uncinate process. This measures approximately 4.5 x 3 cm as seen on axial image #156. This is located posterior to the superior mesenteric artery which is partially encased, and the lesion extends inferiorly along the mesentery. This also abuts the left renal vein as seen on image #158. Adrenal glands: There is nodularity of the adrenal glands. Kidneys: The contrast-enhanced kidneys are atrophic and without hydronephrosis. A 3 cm staghorn calculus is again seen in the left kidney. A 2 cm cyst is noted in the interpolar left kidney. Additional subcentimeter cortical hypodensities also likely represent cysts but are too small for definitive characterization. The kidneys enhance symmetrically. Abdominal vasculature: The abdominal aorta is normal in course and caliber noting advanced atherosclerotic calcification. Bowel: No bowel obstruction is identified. There is advanced colonic diverticulosis. Mild wall thickening and pericolic stranding involving the distal descending colon is similar to yesterday and suggests mild acute diverticulitis. No intraperitoneal free air or abscess is seen. The appendix is normal as visualized. Peritoneum: There is no intraperitoneal free. Trace perisplenic fluid is observed. An 11 mm mesenteric implant is seen in the ventral abdomen on image #183. Lymphadenopathy: There is an enlarged gastrohepatic lymph node seen on image #111 which measures 3.0 x 2.8 cm. Prominent retroperitoneal lymph nodes measure up to 8 mm in short axis. Pelvic viscera: Evaluation of the pelvis is significantly degraded by streak artifact from hip arthroplasties. Postoperative change is seen in the groin bilaterally. The bladder is grossly normal as visualized. The prostate gland appears enlarged but is not well-visualized. Skeletal structures: The Skeletal structures are osteopenic. Mild to moderate lumbosacral spondylosis is observed. There is a mild and age indeterminate compression deformity of T11. There are bilateral hip arthroplasties. No lytic or blastic lesions are seen. IMPRESSION: 1. Significantly motion degraded examination. 2. There is advanced colonic diverticulosis with mild acute diverticulitis again suggested involving the distal descending colon. There is no intraperitoneal free air or evidence of abscess. 3. There is unchanged appearance of a large heterogeneous and ill-defined mass lesion measuring up to at least 4.5 cm which likely arises from the uncinate process of the pancreas. This is posterior to the superior mesenteric artery which is partially encased, and abnormal soft tissue tracks inferiorly along the mesentery. This should be considered a pancreatic neoplasm until proven otherwise. 4. Multifocal hepatic metastatic disease is again noted. 5. Enlarged gastrohepatic lymph nodes likely represent metastatic disease. A peritoneal implant is also identified. 6. A staghorn calculus is again seen in the left kidney. 7. Unchanged appearance of irregular subpleural opacities present at both lung bases as compared to yesterday. Top differential considerations remain pleural-based metastatic lesions or possibly the sequelae of pulmonary infarcts. If there is strong clinical concern for pulmonary emboli then a CT angiogram of the chest should be considered. 8. Cardiomegaly and hiatal hernia. 9. Circumferential wall thickening is suggested in the distal esophagus. Cortical clinically for evidence of esophagitis. If further evaluation is desired then endoscopy would be appropriate. 10. Additional findings as above. Electronically signed by: Duc Britt M.D. 07/06/2016 2:46 PM Dictated Date/Time: 07/06/2016 2:33 PM
--- NOTE | 2016-07-06 14:51 | Medical Consult ---
Consultation Note Date of Service Jul 06, 2016. Consultation Note Dr Parada out of town until monday 07/10 and unavailable to view CT scans. Discussed with hospitalist, recommend consult general surgery regarding SMA encasement within pancreatic mass.
[2016-07-06 15:34] VITALS: BP_SYST 128; BP_SYST 144; BP_SYST 154; BP_DIAS 76; BP_DIAS 81; PULSE 91; TEMP 36.4; O2SAT 99
--- NOTE | 2016-07-06 18:31 | Progress Note ---
Internal Med Progress Note Date of Service: Jul 06, 2016. Provider Documentation: SUBJECTIVE: denies of any discomfort no complain of feeling dizzy or lightheaded appetite remains poor no complain of nausea or abdominal pain present at bedside OBJECTIVE: Vital Signs-as noted below Exam: General-elderly male, no sign of distress Eyes-sclera non icteric Lungs-CTA Heart-regular S1/S2 Abdomen-soft, non tender Extremities-no lower ext edema Neuro-no focal neurological deficit , AAO x3 Lab data as noted below. ASSESSMENT & PLAN: HYPONATREMIA - presented with Na 121 /syncope possible due to metastatic pancreatic CA with mets to lungs /liver -SIADH - Na level improved to 125-123 no confusion or mental status change noted -possible chronic hyponatremia - cont on NSS , will decrease the rate to 75 ml /hr needs gradual correction Na not to rise >8 MEq in 24 hours repeat PRP in AM Nephrology consulted METASTATIC PANCREATIC MASS, NEW DIAGNOSIS - noted on CT - 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 possible pulmonary infarcts - CT ABDOMEN /PELVIS WITH IV CONTRAST : --large heterogeneous and ill-defined mass lesion measuring up to at least 4.5 cm which likely arises from the uncinate process of the pancreas. The posterior to the superior mesenteric artery which is partially encased, and abnormal soft tissue tracks inferiorly along the mesentery. This should be considered a pancreatic neoplasm until proven otherwise. -Multifocal hepatic metastatic disease is again noted. -- Enlarged gastrohepatic lymph nodes likely represent metastatic disease. A peritoneal implant is also identified. - irregular subpleural opacities present at both lung bases -pleural-based metastatic lesions or possibly the sequelae of pulmonary infarcts. -appreciate input form GI , plan for out pt EUS and biopsy for definitive diagnosis -Heme onc consult requested -extremely poor prognosis with wide spread metastatic pancreatic CA -vascular consult was requested for SMA stenosis /mass invasion Dr Parada is out of town for the week General surgery consult requested for recommendation pt does complain of post prandial pain /discomfort no evidence of bowel ischemia NEAR SYNCOPE - likely due to orthostasis/hyponatremia - noted positive orthostatic BPs in the ED - head CT negative, no focal deficits on exam - IVF, continue to monitor orthostatic vitals DIVERTICULITIS OF DESCENDING COLON - mild acute descending colon diverticulitis noted on CT - afebrile, normal WBC - On IV Zosyn -GI eval appreciated -diet advanced DVT PROPHYLAXIS high risk for DVT with metastatic ca - SQ Lovenox CODE STATUS - full code DISPOSITION plan to discharge home as Na level improves CT scan finding explained with pt and pt is tearful -wants to be home as soon as possible Pt's Daughter will come form [place] tomorrow , Son is coming from [place] pt wants Son and daughter to be involved in treatment care will update family tomorrow as they arrive Vital Signs: Date Time Temp Pulse Resp B/P (MAP) Pulse Ox O2 Delivery O2 Flow Rate FiO2 07/06/16 16:00 Room Air 07/06/16 15:34 36.4 91 18 154/81 (105) 99 Room Air 144/76 (98) 128/76 (93) 07/06/16 12:00 Room Air 07/06/16 11:17 36.4 98 18 131/75 (93) 91 Room Air 07/06/16 08:01 36.8 79 18 161/85 (110) 96 Room Air 07/06/16 08:00 Room Air 07/06/16 04:00 96 Room Air 07/06/16 04:00 36.4 89 18 165/84 (111) 95 Room Air 07/06/16 00:00 96 Room Air 07/05/16 23:42 36.6 95 18 170/82 (111) 95 Room Air 07/05/16 20:00 96 Room Air 07/05/16 19:38 36.4 86 18 178/88 (118) 96 Room Air Lab Results: Results Past 24 Hours Test 07/05/16 20:00 07/05/16 22:00 07/05/16 22:45 07/05/16 23:20 Range/Units Sodium Level 124 123 125 136-145 mmol/L Urine Osmolality 447 500-800 mOms/kg Urine Random Creatinine 47.0 mg/dl Urine Random Sodium 137 mEq/L Test 07/06/16 02:07 07/06/16 04:35 07/06/16 06:00 Range/Units Sodium Level 122 123 123 136-145 mmol/L
[2016-07-06] MEDS: RANITIDINE HCL 150 MG TAB PO SCH (20:45)
[2016-07-06] MEDS: ENOXAPARIN 40 MG/0.4 ML SYR SC SCH (20:46)
[2016-07-06 23:01] VITALS: BP 171/94; PULSE 93; TEMP 36.4; O2SAT 97
[2016-07-07] VITALS (20 sets, daily range): BP systolic 62–175; BP diastolic 47–105; PULSE 80–119; TEMP 36.5–37.1; O2SAT 88–100
[2016-07-07] MEDS: PIPERACILL/TAZOBAC IV 3.375 GM in DEXTROSE 5% 100ML 100 ML IV SCH ×4 (00:30→23:40)
--- NOTE | 2016-07-07 06:23 | Progress Note ---
Internal Med Progress Note Date of Service: Jul 07, 2016. Provider Documentation: Made aware by RN around 6 AM of px head trauma ff fall in the room. Agitated overnight as per RN. decreased responsiveness after fall. L upper brow lacerated wound w/ some bleeding as per RN post fall AP Decreased responsiveness ? intracranial trauma ? worsening hyponatremia CT head now hold ASA, Heparin SQ until CT results known ff AM lytes Px seen at CT. px coherent but hard of hearing. Dr. Sullivan ([facility]) consulted for wound repair. Px to proceed to ER for suturing prior to return to PCU. Px updated of developments over the phone. Will relay developments to AM provider. Vital Signs: Date Time Temp Pulse Resp B/P (MAP) Pulse Ox O2 Delivery O2 Flow Rate FiO2 07/07/16 10:08 36.5 89 21 98 07/07/16 04:00 Room Air 07/07/16 03:23 36.5 89 21 175/92 (119) 98 Room Air 07/06/16 23:59 Room Air 07/06/16 23:01 36.4 93 20 171/94 (119) 97 Room Air 07/06/16 20:00 Room Air 07/06/16 16:00 Room Air 07/06/16 15:34 36.4 91 18 154/81 (105) 99 Room Air 144/76 (98) 128/76 (93) 07/06/16 12:00 Room Air 07/06/16 11:17 36.4 98 18 131/75 (93) 91 Room Air Lab Results: Results Past 24 Hours Test 07/07/16 08:26 07/07/16 09:10 07/07/16 09:30 Range/Units White Blood Count 15.12 4.8-10.8 K/uL Red Blood Count 3.83 4.7-6.1 M/uL Hemoglobin 12.0 14.0-18.0 g/dL Hematocrit 32.5 42-52 % Mean Corpuscular Volume 84.9 80-100 fL Mean Corpuscular Hemoglobin 31.3 25-34 pg Mean Corpuscular Hemoglobin Concent 36.9 32-36 g/dl Platelet Count 255 130-400 K/uL Mean Platelet Volume 8.3 7.4-10.4 fL Neutrophils (%) (Auto) 87.2 % Lymphocytes (%) (Auto) 5.6 % Monocytes (%) (Auto) 6.2 % Eosinophils (%) (Auto) 0.5 % Basophils (%) (Auto) 0.2 % Neutrophils # (Auto) 13.20 1.4-6.5 K/uL Lymphocytes # (Auto) 0.84 1.2-3.4 K/uL Monocytes # (Auto) 0.93 0.11-0.59 K/uL Eosinophils # (Auto) 0.07 0-0.5 K/uL Basophils # (Auto) 0.03 0-0.2 K/uL RDW Standard Deviation 39.2 36.4-46.3 fL RDW Coefficient of Variation 12.7 11.5-14.5 % Immature Granulocyte % (Auto) 0.3 % Immature Granulocyte # (Auto) 0.05 0.00-0.02 K/uL Sodium Level 115 136-145 mmol/L Potassium Level 3.4 3.5-5.1 mmol/L Chloride Level 80 98-107 mmol/L Carbon Dioxide Level 22 21-32 mmol/L Anion Gap 12.0 3-11 mmol/L Blood Urea Nitrogen 6 7-18 mg/dl Creatinine 0.70 0.60-1.40 mg/dl Est Creatinine Clear Calc Drug Dose 64.2 ml/min Estimated GFR () 100.4 Estimated GFR (Non- 86.7 BUN/Creatinine Ratio 8.3 10-20 Random Glucose 148 70-99 mg/dl Calcium Level 7.9 8.5-10.1 mg/dl Magnesium Level 1.6 1.8-2.4 mg/dl
--- NOTE | 2016-07-07 06:39 | DIAGNOSTIC IMAGING REPORT ---
CT HEAD WITHOUT CONTRAST (CT) CLINICAL HISTORY: head trauma CONFUSION, ALTERED MENTAL STATUS. COMPARISON STUDY: 07/05/2016 TECHNIQUE: Axial CT of the brain is performed from the vertex to the skull base. IV contrast was not administered for this examination. CT DOSE: 614.27 mGy.cm FINDINGS: No intra or extra-axial mass lesions are visualized. There is no CT evidence of acute cortical infarction. There is no evidence of midline shift. There is no acute hemorrhage. No calvarial fractures are visualized. There are patchy white matter hypodensities likely on a small vessel basis. There is no evidence of pathologic ventricular dilatation. There is a right maxilla sinus retention cyst. There is mucosal thickening involving multiple ethmoid air cells. There is a probable left frontal sinus retention cyst. There is equivocal parietal occipital scalp edema. There is a probable small laceration within the left supraorbital soft tissues. IMPRESSION: No acute intracranial findings Electronically signed by: Sharan Dupont M.D. 07/07/2016 6:37 AM Dictated Date/Time: 07/07/2016 6:35 AM
[2016-07-07] MEDS ORDERED: LIDOCAINE/EPINEPHRINE 1% 20 ML VIAL ONE (07:09)
--- NOTE | 2016-07-07 07:16 | DIAGNOSTIC IMAGING REPORT ---
CT OF THE CERVICAL SPINE CLINICAL HISTORY: Neck pain status post trauma COMPARISON STUDY: No previous studies for comparison. CT DOSE: 658.05 mGy.cm TECHNIQUE: CT scan of the cervical spine was performed from the skull base to the thoracic inlet. Images are reviewed in the axial, sagittal, and coronal planes. IV contrast was not administered for this examination. FINDINGS: The visualized portions of the lung apices reveal no evidence of pneumothorax. The prevertebral soft tissues are normal. No fractures or subluxations are visualized. There are multilevel degenerative changes. 2.6 mm of anterior subluxation of C3 on C4 is felt to be degenerative. The examination is compromised secondary to patient motion. IMPRESSION: Compromised study secondary to patient motion. Multilevel degenerative change. No acute fractures or traumatic subluxations identified. Electronically signed by: Sharan Dupont M.D. 07/07/2016 7:15 AM Dictated Date/Time: 07/07/2016 7:10 AM
--- NOTE | 2016-07-07 07:39 | EMERGENCY ROOM VISIT NOTE ---
ED Visit Note EMERGENCY DEPARTMENT PROCEDURE NOTE: Patient is an 85-year-old white male, (inpatient room 218, [facility]) brought to the ED from CAT scan for repair of a left eyebrow laceration, reportedly sustained in a fall. Please refer to inpatient records for further information. EMERGENCY DEPARTMENT COURSE: The left eyebrow wound was prepped with Betadine and draped with sterile towels. The wound was anesthetized with 1% lidocaine with epinephrine. The 3 cm Y-shaped laceration was irrigated copiously using normal saline solution and direct pressure irrigation. The wound was repaired using 6, 5-0 nylon sutures. Patient was returned to the floor.
[2016-07-07] MEDS ORDERED: LORAZEPAM 2 MG/ML 1 ML VIAL ONE (07:56)
[2016-07-07] MEDS ORDERED: NURSING VERBAL MED ORDER ONE ×3 (08:00→21:15)
--- NOTE | 2016-07-07 08:08 | Progress Note ---
Internal Med Progress Note Date of Service: Jul 07, 2016. Provider Documentation: SUBJECTIVE: pt sustained a fall in early Am today as per nursing -tried to go to bathroom without assistance fell and hit his head -had a large laceration on left upper eye brow and left parieto occipital area pt was transported to ER for suturing of the wounds Stat CT head and CT cervical spine done CT head negative for any intracranial Hge , CT cervical spine -no acute Fx of subluxation noted pt is very confused , pulling at lines, trying to get out of bed does not know his name , where he is at ordered for low bed , bed alarm , pt will be in 1: 1 observation constantly Called family -spoke with and daughter -given update family will be in hospital shortly -nursing is asked to page me ; to discuss pt 's condition with family in person OBJECTIVE: Vital Signs-as noted below Exam: General-very confused , agitated ,pulling at lines, catheter HEENT : large laceration wound /cut on left upper eye brow , suture in place , hematoma on back of head , dried blood in hair Lungs-CTA Heart-regular S1/S2 Abdomen-soft, non tender Extremities-no lower ext edema Neuro-confused, disoriented Lab data as noted below. 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 lab work as out pt on 06/07/16 Na 135 - presented with Na 121 /syncope Na level improved 123-125 with IV NSS pt was found to have improved mental status yesterday evening -asking appropriate questions regarding his Ca diagnosis early this AM sustained a fall hitting his head confused , disoriented today , pulling at his lines , trying to get up Na level 115 post concussion appreciate input from Nephrology pt will be transferred to ICU for close monitoring of hemodynamics/needs IV access for hypertonic 3% NSS infusion Discuss plan of care with Daughter and at bedside in agreement with ICU transfer and possible Center line placement if needed Update given to [employer] Supervisor METASTATIC PANCREATIC MASS, NEW DIAGNOSIS - noted on CT abdomen/pelvis this Admission - new diagnosis with likely hepatic and lung mets previous USG of abdomen on 06/01/16 for abdominal discomfort noted normal liver parenchyma -no gall bladder mass noted pancreas could not be visualized due to overlying bowel loop/gas CT ABDOMEN /PELVIS WITH IV CONTRAST : 07/05/16 --large heterogeneous and ill-defined mass lesion measuring up to at least 4.5 cm which likely arises from the uncinate process of the pancreas. The posterior to the superior mesenteric artery which is partially encased, and abnormal soft tissue tracks inferiorly along the mesentery. This should be considered a pancreatic neoplasm until proven otherwise. -Multifocal hepatic metastatic disease is again noted. -- Enlarged gastrohepatic lymph nodes likely represent metastatic disease. A peritoneal implant is also identified. - irregular subpleural opacities present at both lung bases -pleural-based metastatic lesions or possibly the sequelae of pulmonary infarcts. -appreciate input form GI , plan for out pt EUS in 2-3 and biopsy for definitive diagnosis -if pt;s condition improves enough to be able to have anesthesia for the procedure and family still willing for the biopsy -Heme onc consult requested -extremely poor prognosis with wide spread metastatic pancreatic CA -appreciate input -very poor prognosis with aggressive metastatic pancreatic CA with wide spread mets in past 3-4 months -vascular consult was requested for SMA stenosis /mass invasion General surgery consult recommend conservative management -pain control no evidence of bowel ischemia /bowel obstruction very poor prognosis -palliative care evaluation will be appropriate DIVERTICULITIS OF DESCENDING COLON - mild acute descending colon diverticulitis noted on CT - afebrile, normal WBC - On IV Zosyn -GI eval appreciated DVT PROPHYLAXIS high risk for DVT with metastatic ca - SQ Lovenox CODE STATUS - full code DISPOSITION pt is being transferred to ICU for severe hyponatremia updated all CT finding to Daughter -understands the poor prognosis Vital Signs: Date Time Temp Pulse Resp B/P (MAP) Pulse Ox O2 Delivery O2 Flow Rate FiO2 07/07/16 14:30 36.9 07/07/16 14:21 96 22 82/51 96 07/07/16 14:00 90 15 84/55 95 07/07/16 13:04 84/63 (70) 07/07/16 12:00 Room Air 07/07/16 11:37 108 24 90/54 96 07/07/16 11:27 98 25 62/48 90 07/07/16 11:22 99 25 70/47 88 07/07/16 11:17 98 27 113/87 97 07/07/16 11:00 119 20 94/71 07/07/16 10:30 36.5 101 25 97 07/07/16 10:08 36.5 89 21 98 07/07/16 08:00 Room Air 07/07/16 04:00 Room Air 07/07/16 03:23 36.5 89 21 175/92 (119) 98 Room Air 07/06/16 23:59 Room Air 07/06/16 23:01 36.4 93 20 171/94 (119) 97 Room Air 07/06/16 20:00 Room Air 07/06/16 16:00 Room Air Lab Results: Results Past 24 Hours Test 07/07/16 08:26 07/07/16 09:10 07/07/16 09:30 07/07/16 12:43 Range/Units White Blood Count 15.12 4.8-10.8 K/uL Red Blood Count 3.83 4.7-6.1 M/uL Hemoglobin 12.0 10.8 14.0-18.0 g/dL Hematocrit 32.5 29.7 42-52 % Mean Corpuscular Volume 84.9 80-100 fL Mean Corpuscular Hemoglobin 31.3 25-34 pg Mean Corpuscular Hemoglobin Concent 36.9 32-36 g/dl Platelet Count 255 130-400 K/uL Mean Platelet Volume 8.3 7.4-10.4 fL Neutrophils (%) (Auto) 87.2 % Lymphocytes (%) (Auto) 5.6 % Monocytes (%) (Auto) 6.2 % Eosinophils (%) (Auto) 0.5 % Basophils (%) (Auto) 0.2 % Neutrophils # (Auto) 13.20 1.4-6.5 K/uL Lymphocytes # (Auto) 0.84 1.2-3.4 K/uL Monocytes # (Auto) 0.93 0.11-0.59 K/uL Eosinophils # (Auto) 0.07 0-0.5 K/uL Basophils # (Auto) 0.03 0-0.2 K/uL RDW Standard Deviation 39.2 36.4-46.3 fL RDW Coefficient of Variation 12.7 11.5-14.5 % Immature Granulocyte % (Auto) 0.3 % Immature Granulocyte # (Auto) 0.05 0.00-0.02 K/uL Sodium Level 115 116 136-145 mmol/L Potassium Level 3.4 3.7 3.5-5.1 mmol/L Chloride Level 80 82 98-107 mmol/L Carbon Dioxide Level 22 21 21-32 mmol/L Anion Gap 12.0 13.0 3-11 mmol/L Blood Urea Nitrogen 6 8 7-18 mg/dl Creatinine 0.70 0.85 0.60-1.40 mg/dl Est Creatinine Clear Calc Drug Dose 64.2 52.9 ml/min Estimated GFR () 100.4 92.7 Estimated GFR (Non- 86.7 80.0 BUN/Creatinine Ratio 8.3 9.6 10-20 Random Glucose 148 136 70-99 mg/dl Calcium Level 7.9 8.4 8.5-10.1 mg/dl Magnesium Level 1.6 1.8-2.4 mg/dl Urine Osmolality 611 500-800 mOms/kg Urine Random Sodium 75 mEq/L Ionized Calcium 1.09 1.12-1.32 mmol/l Procalcitonin 0.12 0-0.5 ng/ml Test 07/07/16 15:21 Range/Units Hemoglobin 9.7 14.0-18.0 g/dL Hematocrit 25.6 42-52 % Microbiology Results 07/07/16 Blood Culture, Received Pending 07/07/16 Blood Culture, Received Pending 07/07/16 MRSA DNA Surveillance Screen - Final, Complete Specimen Negative for MRSA by DNA Probe
[2016-07-07 08:38] LABS: HEMATOCRIT 32.5 % (42-52); MEAN CELL VOLUME 84.9 fL (80-100); MEAN CORPUSCULAR HEMOGLOBIN 31.3 pg (25-34); MEAN CORPUSCULAR HGB CONC 36.9 g/dl (32-36); MEAN PLATELET VOLUME 8.3 fL (7.4-10.4); PLATELET COUNT 255 K/uL (130-400); RED BLOOD COUNT 3.83 M/uL (4.7-6.1); WHITE BLOOD COUNT 15.12 K/uL (4.8-10.8)
--- NOTE | 2016-07-07 08:54 | Progress Note ---
Progress Note Date of Service Jul 07, 2016. Progress Note GI quick note: Pt is a 85 y/o male admitted after a fall at home, found to be hyponatremic and CT abd/pelvis done for L sided abd pain revealed diverticulitis and pancreatic mass w liver lesions likely metastases, as well as mets to lung as well. Contrasted repeat CT also revealed similar findings likely pancreatic cancer primary lesion w mets to liver and lungs. Heme/Onc recommended checking CA 19-9 and will see pt in outpt setting after Bx completed. Pt fell overnight, hit L eye. Head & cervical CT w/o fractures. He's confused now. Daughter at bedside. Dr. Truong, myself and pt's daughter had a discussion about pt's condition, and his prognosis. From GI standpoint we will plan on outpt EUS guided bx when pt is stable enough for DC. Tenatively plan for EUS in 2-3 week's time.
[2016-07-07] MEDS: PANTOprazole SOD 40 MG TAB PO SCH (09:00)
[2016-07-07 09:09] LABS: CALCIUM 7.9 mg/dl (8.5-10.1)
[2016-07-07 09:15] LABS: BUN/CREATININE RATIO 8.3 (10-20); CREATININE 0.7 mg/dl (0.60-1.40); MAGNESIUM 1.6 mg/dl (1.8-2.4); POTASSIUM 3.4 mmol/L (3.5-5.1)
[2016-07-07 09:29] LABS: BASO % 0.2 %; BASO ABS # 0.03 K/uL (0-0.2); COMPLETE YES; EOS % 0.5 %; IG% 0.3 %; LYMPH % 5.6 %; LYMPH ABS # 0.84 K/uL (1.2-3.4); MONO % 6.2 %; NEUT % 87.2 %
[2016-07-07] MEDS ORDERED: SODIUM CHLORIDE 0.9% 1000ML 1,000 ML IV SCH (09:45)
[2016-07-07] MEDS ORDERED: SODIUM CHLORIDE 3% 500 ML BAG IV STA (09:53)
[2016-07-07] MEDS ORDERED: SODIUM CHLORIDE 3% IV ONE (10:15)
--- NOTE | 2016-07-07 10:50 | Medical Consult ---
Consultation Date of Consultation: Jul 07, 2016. Attending Physician: Daya Truong M.D. History of Present Illness 85 y/o male admitted after fall/weakness at home with hyponatremia and newly discovered pancreatic mass with liver lesions. He fell again overnight, orbital laceration was sutured in ED, and he is now being transferred to ICU for hyponatremia, 115. He is confused, not able to offer history. and daughter were present. He has had heriberto loss for at least several months although his appetite has been fair. No reported nausea or vomiting. Past Medical/Surgical History Medical Problems: (1) History of kidney stones Surgical Problems: (1) History of cataract surgery (2) History of hernia repair (3) History of hip surgery (4) History of left knee surgery Family History Patient reports no known family medical history. Social History Smoking Status: Former Smoker Alcohol Use: none Drug Use: none Marital Status: Housing Status: lives with significant other Allergies Coded Allergies: POLLEN (Verified Allergy, Severe, SNEEZE, 07/05/16) Current Inpatient Medications Current Inpatient Medications Medications (Trade) Dose Ordered Sig/El Route Start Time Stop Time Status Last Admin Dose Admin Enoxaparin Sodium (Lovenox Inj) 40 mg Q24H SC 07/05/16 21:00 08/04/16 20:59 Future Hold 07/06/16 20:46 40 MG Acetaminophen (Tylenol Tab) 650 mg Q4H PRN PO 07/05/16 15:45 08/04/16 15:44 Ondansetron HCl (Zofran Inj) 4 mg Q6H PRN IV 07/05/16 15:45 08/04/16 15:44 Aspirin (Ecotrin Tab) 81 mg DAILY PO 07/06/16 09:00 08/05/16 08:59 Future Hold 07/06/16 09:17 81 MG Pantoprazole Sodium (Protonix Tab) 40 mg DAILY PO 07/06/16 09:00 08/05/16 08:59 07/06/16 09:17 40 MG Ranitidine HCl (zANTac TAB) 300 mg HS PO 07/05/16 21:00 08/04/16 20:59 07/06/16 20:45 300 MG Piperacillin Sod/ Tazobactam Sod (Consult) 1 ea UD PRN N/A 07/05/16 17:00 08/04/16 16:59 Piperacillin Sod/ Tazobactam Sod 3.375 gm/Dextrose 115 ml @ 28.75 mls/ hr Q8H IV 07/06/16 00:00 07/16/16 00:00 07/07/16 08:00 28.75 MLS/HR Ioversol (Optiray 320) 125 ml UD PRN IV 07/06/16 11:45 07/10/16 11:44 Sodium Chloride 1,000 ml @ 100 mls/hr Q10H IV 07/07/16 09:45 08/06/16 09:44 Sodium Chloride 50 ml/Empty Bag 50 ml @ 100 mls/hr NOW ONCE IV 07/07/16 10:15 07/07/16 10:44 Review of Systems not obtainable from the patient Physical Exam Date Time Temp Pulse Resp B/P (MAP) Pulse Ox O2 Delivery O2 Flow Rate FiO2 07/07/16 10:08 36.5 89 21 98 07/07/16 04:00 Room Air 07/07/16 03:23 36.5 89 21 175/92 (119) 98 Room Air 07/06/16 23:59 Room Air 07/06/16 23:01 36.4 93 20 171/94 (119) 97 Room Air 07/06/16 20:00 Room Air 07/06/16 16:00 Room Air 07/06/16 15:34 36.4 91 18 154/81 (105) 99 Room Air 144/76 (98) 128/76 (93) 07/06/16 12:00 Room Air 07/06/16 11:17 36.4 98 18 131/75 (93) 91 Room Air General Appearance: + cachetic Head: + pertinent finding (left orbital laceration, hematoma) Neurologic/Psych: + pertinent finding (confused) Laboratory Results Last 24 Hours Test 07/07/16 08:26 07/07/16 09:10 07/07/16 09:30 White Blood Count 15.12 K/uL Red Blood Count 3.83 M/uL Hemoglobin 12.0 g/dL Hematocrit 32.5 % Mean Corpuscular Volume 84.9 fL Mean Corpuscular Hemoglobin 31.3 pg Mean Corpuscular Hemoglobin Concent 36.9 g/dl Platelet Count 255 K/uL Mean Platelet Volume 8.3 fL Neutrophils (%) (Auto) 87.2 % Lymphocytes (%) (Auto) 5.6 % Monocytes (%) (Auto) 6.2 % Eosinophils (%) (Auto) 0.5 % Basophils (%) (Auto) 0.2 % Neutrophils # (Auto) 13.20 K/uL Lymphocytes # (Auto) 0.84 K/uL Monocytes # (Auto) 0.93 K/uL Eosinophils # (Auto) 0.07 K/uL Basophils # (Auto) 0.03 K/uL RDW Standard Deviation 39.2 fL RDW Coefficient of Variation 12.7 % Immature Granulocyte % (Auto) 0.3 % Immature Granulocyte # (Auto) 0.05 K/uL Sodium Level 115 mmol/L Potassium Level 3.4 mmol/L Chloride Level 80 mmol/L Carbon Dioxide Level 22 mmol/L Anion Gap 12.0 mmol/L Blood Urea Nitrogen 6 mg/dl Creatinine 0.70 mg/dl Est Creatinine Clear Calc Drug Dose 64.2 ml/min Estimated GFR () 100.4 Estimated GFR (Non- 86.7 BUN/Creatinine Ratio 8.3 Random Glucose 148 mg/dl Calcium Level 7.9 mg/dl Magnesium Level 1.6 mg/dl CT IMPRESSION: 1. Significantly motion degraded examination. 2. There is advanced colonic diverticulosis with mild acute diverticulitis again suggested involving the distal descending colon. There is no intraperitoneal free air or evidence of abscess. 3. There is unchanged appearance of a large heterogeneous and ill-defined mass lesion measuring up to at least 4.5 cm which likely arises from the uncinate process of the pancreas. This is posterior to the superior mesenteric artery which is partially encased, and abnormal soft tissue tracks inferiorly along the mesentery. This should be considered a pancreatic neoplasm until proven otherwise. 4. Multifocal hepatic metastatic disease is again noted. 5. Enlarged gastrohepatic lymph nodes likely represent metastatic disease. A peritoneal implant is also identified. 6. A staghorn calculus is again seen in the left kidney. 7. Unchanged appearance of irregular subpleural opacities present at both lung bases as compared to yesterday. Top differential considerations remain pleural-based metastatic lesions or possibly the sequelae of pulmonary infarcts. If there is strong clinical concern for pulmonary emboli then a CT angiogram of the chest should be considered. 8. Cardiomegaly and hiatal hernia. 9. Circumferential wall thickening is suggested in the distal esophagus. Cortical clinically for evidence of esophagitis. If further evaluation is desired then endoscopy would be appropriate. 10. Additional findings as above. Electronically signed by: Duc Britt M.D. 07/06/2016 2:46 PM Dictated Date/Time: 07/06/2016 2:33 PM Assessment & Plan pancreatic mass, likely liver mets hyponatremia He is being transferred to ICU. EUS on hold due to change in status overnight. No acute surgical issues, doubt clinically significant SMA stenosis or outlet obstruction. Can revisit or follow-up as outpatient for port placement or symptoms of outlet obstruction. Seen with Dr. Ellington.
[2016-07-07] MEDS ORDERED: MIDAZOLAM HCL 1 MG/ML 2ML VIAL ONE (11:00)
--- NOTE | 2016-07-07 11:39 | Procedure Note ---
Procedure Note Date of Service Jul 07, 2016. (Zia Gilbert MD) Procedure Note Pre-Procedure Diagnosis: Hypotension, Hyponatrenia Post-Procedure Diagnosis: Same Type of Procedure: Central Venous Catheter Placement Performing Physician: Dr. Zia Gilbert, PGY 2 Family Medicine Attending/Supervising Physician: Dr. Jil Wilkes, Critical Care Attending Indication: Need for hypertonic saline infusion Consent: Detailed explanation of the procedure, treatment options, risks including but not limited to infection and bleeding, and benefits were explained to the family. A written informed consent was obtained and placed in the patient's chart. Technique: A time out was preformed identifying the correct procedure, the correct location with the nursing staff. The right neck was prepped with 2% chlorhexidine and draped with a full length sterile sheet in the usual fashion. 1% lidocaine was administered subcutaneously for local anesthesia. The right internal jugular vein was accessed under ultrasound guidance with an 18 gauge thin wall needle. Initial approach yielded flash back of bright red blood so needle was immediately removed and pressure was placed over the insertion site. Hemostasis was achieved. The vein was accessed successfully on the second attempt. A triple lumen central catheter was inserted via the Seldinger technique. Blood was withdrawn from all lumens and flushed with normal saline. The catheter was sutured in place and a sterile dressing was applied over the site prior to removal of drapes. The patient tolerated the procedure well and there were no complications. Chest x ray is pending at this time. EBL: 5 cc Complication: Small hematoma to right neck; hemostasis achieved (Zia Gilbert MD)
[2016-07-07] MEDS ORDERED: MIDAZOLAM HCL 5 MG/ML 1 ML VIAL IV STA (11:44)
--- NOTE | 2016-07-07 12:29 | Critical Care Consultation ---
Critical Care Consultation Date of Consultation: Jul 07, 2016. Attending Physician: Daya Truong M.D. 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 Patient complained of abdominal pain postprandially as well and he was admitted on mainly for investigation of weakness and hyponatremia. He was found to be anemia and profoundly hyponatremic to 121 on admission. He had a CT abdomen which showed an ill-defined mass up to 4.5 cm in size which appears to arise from the uncinate process of the pancreas and was described as encasing the SMA. with multiple mets: 1- Multifocal hepatic metastatic 2- enlarged gastrohepatic lymph nodes 3- A peritoneal implant is also identified. 4- irregular subpleural opacities present at both lung bases 6. A staghorn calculus is again seen in the left kidney. In addition circumferential wall thickening is suggested in the distal esophagus. He was evaluated by GI, nephrology and surgery as well as oncolosy. GI was planning EUS for him for Dx, Oncology said they will see him as outpatient after the diagnosis is made. nephrology was managing hypernatremia. Surgery says he is a candiate for palliative relef of gastric outlet obstruction when and if that happend but no other acute intervention is needed. The patient got progressively disoriented and wandered out of bed this am, fell lacerated his forehead and required sutures above left eybrow. CT head showed no intracranial bleed. His Na decreased further to 115 and he was transferred to ICU for therapy of symptomatic severe hyponatremia with 3 % saline. Patient is confused and unable to provide history at bedside. Past Medical/Surgical History (1) Dyslipidemia Status: Chronic Surgical Problems: (1) H/O arthroscopic knee surgery (2) H/O bilateral hip replacements (3) H/O inguinal hernia repair (4) History of cataract surgery (5) History of cataract surgery (6) History of left knee surgery Family History Patient reports no known family medical history. non contibutory at this point Social History Smoking Status: Former Smoker Alcohol Use: none Drug Use: none Marital Status: Housing Status: lives with significant other Allergies Coded Allergies: POLLEN (Verified Allergy, Severe, SNEEZE, 07/05/16) Home Medications Scheduled Aspirin (Aspirin EC Low Dose), 81 MG PO DAILY Lutein-Zeaxanthin (Lutein), 1 CAP PO Q2D Pantoprazole (Protonix), 40 MG PO DAILY Pravastatin (Pravachol ), 20 MG PO DAILY Ranitidine Hcl (Zantac), 300 MG PO HS Current Inpatient Medications Current Inpatient Medications Medications (Trade) Dose Ordered Sig/El Route Start Time Stop Time Status Last Admin Dose Admin Enoxaparin Sodium (Lovenox Inj) 40 mg Q24H SC 07/05/16 21:00 08/04/16 20:59 Future Hold 07/06/16 20:46 40 MG Acetaminophen (Tylenol Tab) 650 mg Q4H PRN PO 07/05/16 15:45 08/04/16 15:44 Ondansetron HCl (Zofran Inj) 4 mg Q6H PRN IV 07/05/16 15:45 08/04/16 15:44 Aspirin (Ecotrin Tab) 81 mg DAILY PO 07/06/16 09:00 08/05/16 08:59 Future Hold 07/06/16 09:17 81 MG Pantoprazole Sodium (Protonix Tab) 40 mg DAILY PO 07/06/16 09:00 08/05/16 08:59 07/06/16 09:17 40 MG Ranitidine HCl (zANTac TAB) 300 mg HS PO 07/05/16 21:00 08/04/16 20:59 07/06/16 20:45 300 MG Piperacillin Sod/ Tazobactam Sod (Consult) 1 ea UD PRN N/A 07/05/16 17:00 08/04/16 16:59 Piperacillin Sod/ Tazobactam Sod 3.375 gm/Dextrose 115 ml @ 28.75 mls/ hr Q8H IV 07/06/16 00:00 07/16/16 00:00 07/07/16 08:00 28.75 MLS/HR Ioversol (Optiray 320) 125 ml UD PRN IV 07/06/16 11:45 07/10/16 11:44 Sodium Chloride 1,000 ml @ 100 mls/hr Q10H IV 07/07/16 09:45 08/06/16 09:44 Sodium Chloride 50 ml/Empty Bag 50 ml @ 100 mls/hr NOW ONCE IV 07/07/16 10:15 07/07/16 10:44 Review of Systems unable to obtain from patient see HPI Physical Exam Date Time Temp Pulse Resp B/P (MAP) Pulse Ox O2 Delivery O2 Flow Rate FiO2 07/07/16 04:00 Room Air 07/07/16 03:23 36.5 89 21 175/92 (119) 98 Room Air 07/06/16 23:59 Room Air 07/06/16 23:01 36.4 93 20 171/94 (119) 97 Room Air 07/06/16 20:00 Room Air 07/06/16 16:00 Room Air 07/06/16 15:34 36.4 91 18 154/81 (105) 99 Room Air 144/76 (98) 128/76 (93) 07/06/16 12:00 Room Air General Appearance: other (ill appearing cachectic with temporal wasting. Has hiccups and is not delerious) Head: normocephalic, other (laceration left forehead with suture) ENT: normal ear exam Neck: normal range of motion, other (R IJ CVC) Respiratory: breath sounds normal, clear to auscultation Cardiovasular: regular rate/rhythm, normal S1S2 Abdomen: no masses, other (decreased BS, direct mild tenderness) Genitourinary - Male: external genitalia normal Back: normal inspection Upper Extremities: other (no Clubbing cyanosis or edema ) Lower Extremities: other (no Clubbing cyanosis or edema ) Pulses: carotid (R) (2+), carotid (L) (2+), radial (R) (2+), radial (L) (2+), dorsalis pedis (R) (2+), dorsalis pedis (L) (2+) Neuro: confused, other (mumbles to vebal stimuli and withdraws to pain. Moves all 4 extremities with symmetric 5/5 power) Laboratory Results Last 24 Hours Test 07/07/16 08:26 07/07/16 09:10 07/07/16 09:30 White Blood Count 15.12 K/uL Red Blood Count 3.83 M/uL Hemoglobin 12.0 g/dL Hematocrit 32.5 % Mean Corpuscular Volume 84.9 fL Mean Corpuscular Hemoglobin 31.3 pg Mean Corpuscular Hemoglobin Concent 36.9 g/dl Platelet Count 255 K/uL Mean Platelet Volume 8.3 fL Neutrophils (%) (Auto) 87.2 % Lymphocytes (%) (Auto) 5.6 % Monocytes (%) (Auto) 6.2 % Eosinophils (%) (Auto) 0.5 % Basophils (%) (Auto) 0.2 % Neutrophils # (Auto) 13.20 K/uL Lymphocytes # (Auto) 0.84 K/uL Monocytes # (Auto) 0.93 K/uL Eosinophils # (Auto) 0.07 K/uL Basophils # (Auto) 0.03 K/uL RDW Standard Deviation 39.2 fL RDW Coefficient of Variation 12.7 % Immature Granulocyte % (Auto) 0.3 % Immature Granulocyte # (Auto) 0.05 K/uL Sodium Level 115 mmol/L Potassium Level 3.4 mmol/L Chloride Level 80 mmol/L Carbon Dioxide Level 22 mmol/L Anion Gap 12.0 mmol/L Blood Urea Nitrogen 6 mg/dl Creatinine 0.70 mg/dl Est Creatinine Clear Calc Drug Dose 64.2 ml/min Estimated GFR () 100.4 Estimated GFR (Non- 86.7 BUN/Creatinine Ratio 8.3 Random Glucose 148 mg/dl Calcium Level 7.9 mg/dl Magnesium Level 1.6 mg/dl Urine Osmolality 611 mOms/kg Urine Random Sodium 75 mEq/L Diagnostic Results CT abdomen and head as in HPI ECG shows a QTc 457, incomplete RBBB with NSR Assessment & Plan 85 yo male with history of hyperlipidemia and GERD admitted with ' (1) metastatic carcinoma likely pancreatic (2)confusion and altered mental status (3) hyponatremia likely due to (5) SIADH or paraneoplastic process. neurologic The AMS is due likely to symptomatic hyponatremia. We will treat underlying cause since he is elderly will repeat CT in 1-3 days to make sure no SD hemorrhage occurs (usually that is delayed) post fall symptomatic therapy for agitation with 1 mg of midazolam respiratory stable saturating 96-97% on RA will supplement O2 PRN cardiovascular will hold off ASA and lipitor at this point. Will send off a metabolic panel in am GI he is unable to feed. Will keep NPO for the next 24 hours. If he does not improve with Na improvement then we will place NG and feed Renal replete NA. to increase his Na by 10 Meq over the next 24 hours he has a deficit of 290 meq of sodium for a fluid volume of 29 liters (1/2 BW) We can either give a 100 ml of 3% saline then repeat Na every 4 hours or start him on 25 ml/hr of 3% Na and check PRP every 4 hours and replete monitor UO and electrolytes ID he is on zosyn for leukocytosis There seems to be no focus of infection DVT his lovenox stopped due to fall Will watch for 24-38 hours with SCD then resume lovenox. Pancreatic cancer is high risk for DVT lines central line R IJ placed and he needs it carrillo in and he needs it I spoke to the family and he is a DNR/DNI at this point. They want all therapy and food but no CPR no MV. It is his wish. CC time 60 min excluding procedure time
[2016-07-07] MEDS ORDERED: SODIUM CHLORIDE 3% 500 ML BAG IV SCH (12:30)
--- NOTE | 2016-07-07 12:35 | DIAGNOSTIC IMAGING REPORT ---
CHEST ONE VIEW PORTABLE HISTORY: right IJ central line placement COMPARISON: Chest 07/05/2016. FINDINGS: Interval placement of right jugular central venous catheter. This terminates in the expected location of the distal SVC. However, there is significant increase in size and a right peritracheal density which measures up to 5.6 cm in thickness. This results in left deviation of the trachea. This is consistent with a mediastinal hematoma. No pneumothorax. No pleural effusions. The heart is normal in size. There is barium contrast within the colon. IMPRESSION: 1. Right paratracheal density consistent with a mediastinal hematoma. This measures up to 5.[address] is recommended for further evaluation. 2. Interval placement of a right jugular central venous catheter. This terminates in the expected location of the distal SVC. No pneumothorax. 3. These findings were discussed with Dr. Wilkes at 12:33 PM on 07/07/2016. Electronically signed by: Sheng Nowak M.D. 07/07/2016 12:34 PM Dictated Date/Time: 07/07/2016 12:27 PM
[2016-07-07] MEDS ORDERED: MAGNESIUM SULFATE 1GM / D5W 1 GM in PREMIXED IN D5W 100 ML IV SCH (13:00)
[2016-07-07] MEDS: POTASSIUM CHLR 10 MEQ / WTR 10 MEQ in PREMIXED WATER 100 ML IV SCH ×4 (13:27→18:26)
[2016-07-07] MEDS: MAGNESIUM SULFATE 1GM / D5W 1 GM in PREMIXED IN D5W 100 ML IV SCH ×3 (13:27→15:39)
[2016-07-07] MEDS ORDERED: SODIUM CHLORIDE 3% INJ 500 ML IV SCH (13:30)
--- NOTE | 2016-07-07 13:30 | DIAGNOSTIC IMAGING REPORT ---
CT OF THE CHEST WITHOUT IV CONTRAST CLINICAL HISTORY: Abnormal chest x-ray. Possible mediastinal hematoma. COMPARISON STUDY: Chest x-ray dated 07-22 CT DOSE: 319.72 mGy.cm TECHNIQUE: CT of the thorax was performed from the thoracic inlet to the lung bases. Images are reviewed in the axial, sagittal, and coronal planes. IV contrast was not administered for this examination. FINDINGS: Thyroid: Imaged portions of the thyroid gland are normal in appearance. Thoracic aorta: The thoracic aorta is normal in course and caliber, noting standard 3 vessel arch anatomy. Heart: There are coronary artery calcifications present. Lungs and pleural spaces: There is pulmonary emphysema. There is bibasilar atelectatic change. No pneumothorax is visualized Mediastinum: There is a moderate right paratracheal soft tissue mass consistent with a hematoma. This explains the chest x-ray findings. There is a right internal jugular central venous catheter. It is not possible with certainty determine whether this catheter is intraluminal as the study was performed without intravenous contrast. The catheter course is however consistent with an intraluminal venous location. There is nonspecific gas within the soft tissues at the right cervicothoracic inlet. There is mild tracheal deviation to the left. Francy: Clear. Axilla: Clear. Upper abdomen: There is a staghorn left renal calculus. There is a suspected left lobe hepatic mass. There is mass/adenopathy the level of the celiac artery Skeletal structures: There are no lytic or blastic osseous lesions. IMPRESSION: 1. Moderate right paratracheal/superior mediastinal hematoma with mild secondary tracheal shift to the left 2. Gas bubbles within the superior mediastinal soft tissues at the cervicothoracic inlet, likely iatrogenic given the history of recent line placement 3. Right internal jugular central venous catheter. Is not possible with certainty to determine the catheter position as the study is performed without intravenous contrast 4. Staghorn left renal calculus 5. Suspected left lobe hepatic mass 6. Mass/adenopathy the level of the celiac artery Electronically signed by: Sharan Dupont M.D. 07/07/2016 1:29 PM Dictated Date/Time: 07/07/2016 1:20 PM
[2016-07-07 13:54] LABS: BUN/CREATININE RATIO 9.6 (10-20); CALCIUM 8.4 mg/dl (8.5-10.1); CREATININE 0.85 mg/dl (0.60-1.40); POTASSIUM 3.7 mmol/L (3.5-5.1)
[2016-07-07] MEDS: SODIUM CHLORIDE 3% INJ 500 ML IV SCH ×2 (14:07→21:25)
[2016-07-07 14:24] LABS: HEMATOCRIT 29.7 % (42-52)
--- NOTE | 2016-07-07 15:12 | Palliative Care Progress Note ---
Palliative Care Progress Note Date of Service Jul 07, 2016. Subjective Pt evaluation today including: conversation w/ internet consultant (Dr. Wilkes) Mr. Chaudhari is an 85 year old man who presented to the ED with weakness and a fall. History obtained from record as the patient in obtunded/unresponsive in ICU room 103 and there is no family at bedside. Apparently he was in his usual state of decent health, independently functioning, until the day of arrival when he had generalized weakness and even a fall. Imaging here showed a pancreatic mass encasing the superior mesenteric artery, suspicious for malignancy, with probably mets to the liver. Patient was doing fairly well, though, and was to follow up with oncology and other specialists outpatient to have EUS and discuss this new diagnosis. His sodium has been low sine admission , starting in the 120s and dropping to 115 today. This morning, unfortunately, patient had a fall in the room, increased confusion, laceration above eye, and is now unresponsive. He was transferred to ICU, central line placed for hypertonic solution and his sodium is being frequently monitored. Patient developed hematoma around right IJ catheter. Unfortunately, his prognosis is quite poor. Palliative care consulted to provide options for comfort/hospice care and provide support. I went to patient's room to meet with him and family. Family has just left to pickle maker a [place] member from the airport. The patient is essentially unresponsive. Unfortunately I was unable to discuss goals of care or options for comfort care. I discussed this with molder bench and primary RN. Unfortunately I am out of the office for the next week. There will be a registered nurse palliative liaison available to discuss options if needed ( call [phone]), or I can be reached on my cell which the ICU has.
--- NOTE | 2016-07-07 15:32 | DIAGNOSTIC IMAGING REPORT ---
CHEST ONE VIEW PORTABLE HISTORY: FU on mediastinal hematoma COMPARISON: Chest x-ray and chest CT 07/07/2016. FINDINGS: Right jugular central venous catheter is unchanged in position. This terminates in the expected location of the SVC. Right paratracheal mediastinal hematoma measures 4.8 cm in diameter. This is stable to slightly decreased in size. Mild left tracheal deviation is again noted. The heart is normal in size. No pleural effusions. No pneumothorax. IMPRESSION: Stable to slight decrease in size in the right paratracheal mediastinal hematoma. The right jugular central venous catheter is unchanged in position. Electronically signed by: Sheng Nowak M.D. 07/07/2016 3:30 PM Dictated Date/Time: 07/07/2016 3:27 PM
[2016-07-07 15:33] LABS: HEMATOCRIT 25.6 % (42-52)
[2016-07-07 15:56] LABS: BUN/CREATININE RATIO 10.4 (10-20); CALCIUM 7.4 mg/dl (8.5-10.1); CREATININE 0.81 mg/dl (0.60-1.40); POTASSIUM 3.7 mmol/L (3.5-5.1)
[2016-07-07 16:19] LABS: HEMATOCRIT 27.7 % (42-52)
[2016-07-07 16:30] LABS: ISTAT ARTERIAL BLOOD GAS PCO2 33 mmHg (35-46); ISTAT ARTERIAL BLOOD GAS PO2 23 mmHg (80-95); ISTAT ARTERIAL BLOOD GAS pH 7.38 (7.35-7.45); ISTAT HEMATOCRIT 26 % (42-52); ISTAT HEMOGLOBIN 8.8 g/dl (14.0-18.0); ISTAT SODIUM 115 mEq/L (135-144)
[2016-07-07 16:31] LABS: ISTAT ARTERIAL BLOOD GAS HCO3 19 meq/L (19-24); ISTAT CARBON DIOXIDE 20 mEq/l (24-31)
[2016-07-07 16:41] LABS: BUN/CREATININE RATIO 10.6 (10-20); CREATININE 0.82 mg/dl (0.60-1.40); MAGNESIUM 2.8 mg/dl (1.8-2.4)
--- NOTE | 2016-07-07 20:53 | SURGICAL CONSULTATION ---
DATE OF CONSULTATION: 07/07/2016 REASON FOR CONSULTATION: Hematoma, right neck and upper mediastinum. REFERRING PHYSICIAN: Moise House MD HISTORY OF PRESENT ILLNESS: This is an 85-year-old male who has a probable pancreatic cancer with metastases to his liver, who has become hyponatremic and was symptomatic and fell and suffered an orbital laceration was sutured in the Emergency Room last night. He was transferred to the ICU. His sodium was only 115. He was quite confused. He has been losing weight. A right internal jugular central line was placed and this appears to have been placed without difficulty, although there was issue initially. At any rate, he has developed a hematoma uin his lower neck and his mediastinum. He had a CT scan in about 90 minutes after this happened. He does have a hematoma. He has had some compression of the trachea to the left. I have been asked to comment on this from the thoracic and vascular surgery standpoint. PAST MEDICAL HISTORY: 1. Probable pancreatic cancer. 2. Nephrolithiasis. 3. Cataracts. 4. Osteoarthritis. PAST SURGICAL HISTORY: 1. Herniorrhaphy. 2. Hip surgery. 3. Left knee surgery. 4. Cataract extractions. ALLERGIES: No known drug allergies. SOCIAL HISTORY: The patient is a smoker. He lives with his . He is cared for at home. FAMILY HISTORY: Noncontributory. MEDICATIONS: Please see chart. REVIEW OF SYSTEMS: The patient is cachectic. He is not answering questions. He appears to be in no respiratory distress. PHYSICAL EXAMINATION: GENERAL: This is a thin male who is somnolent in bed. VITAL SIGNS: He is on room air with 96% saturations. His systolic blood pressure is in the 80s and 90s. He has a Ralph catheter in, which is draining urine. He really does not have any stridor. He is a thin man with a neck, but I really do not detect much in the way of a hematoma. There is a central venous pressure line in place on the right and internal jugular. I have discussed this with the motor block mechanic and it is working well and looks good on x-ray and we are going to leave it in place. HEENT: His sclerae are pale. He has temporal wasting. I do not detect any lymphadenopathy. As stated, he has no stridor. He is moving air fairly well. LUNGS: Clear. He has regular rate and rhythm of his heart. ABDOMEN: Soft. I do not feel any masses. Difficult for me to say if he is tender due to his mental status. I detect no hernias. EXTREMITIES: His lower extremities have no edema. I can palpate pedal pulses and he has no joint effusions. NEUROLOGIC: He appears to be moving all his 4 extremities to stimuli. DATA: I reviewed a CT scan and indeed his trachea is mildly deviated to the left. ASSESSMENT AND PLAN: I do not think he is in danger of a compromise, but he of course warrants close monitoring for this. I will continue to follow along and I doubt that there will be a surgical intervention required. MICKY
[2016-07-07 20:59] LABS: BUN/CREATININE RATIO 12.7 (10-20); CALCIUM 7.3 mg/dl (8.5-10.1); CREATININE 0.74 mg/dl (0.60-1.40); POTASSIUM 4.3 mmol/L (3.5-5.1)
[2016-07-08] VITALS (26 sets, daily range): BP systolic 77–119; BP diastolic 51–68; PULSE 87–102; TEMP 36.6–36.9; O2SAT 100
[2016-07-08 00:19] LABS: BUN/CREATININE RATIO 13.5 (10-20); CALCIUM 7.6 mg/dl (8.5-10.1); CREATININE 0.73 mg/dl (0.60-1.40); POTASSIUM 4.3 mmol/L (3.5-5.1)
[2016-07-08] MEDS ORDERED: NURSING VERBAL MED ORDER ONE ×3 (00:45→21:30)
[2016-07-08 03:20] LABS: BUN/CREATININE RATIO 12.7 (10-20); CALCIUM 7.5 mg/dl (8.5-10.1); CREATININE 0.76 mg/dl (0.60-1.40); MAGNESIUM 2.4 mg/dl (1.8-2.4); POTASSIUM 3.9 mmol/L (3.5-5.1)
[2016-07-08] MEDS: SODIUM CHLORIDE 3% INJ 500 ML IV SCH ×2 (03:45→20:16)
[2016-07-08 07:39] LABS: BUN/CREATININE RATIO 13.9 (10-20); CALCIUM 7.4 mg/dl (8.5-10.1); CREATININE 0.66 mg/dl (0.60-1.40); POTASSIUM 3.7 mmol/L (3.5-5.1)
[2016-07-08] MEDS: PIPERACILL/TAZOBAC IV 3.375 GM in DEXTROSE 5% 100ML 100 ML IV SCH ×2 (07:43→16:39)
[2016-07-08] MEDS: FLUTICASONE PROPIONATE NA SPR 16 GM BTL SCH (07:44)
--- NOTE | 2016-07-08 08:50 | Critical Care Progress Note ---
Critical Care Progress Note Date of Service Jul 08, 2016. ICU Day ICU Day Number: [address] Katrin Husain The patient was admitted with weakness and confusion. 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 The patient was confused walked on his own sustained a fall with laceration of the forehead and then got stitched over the L eyebrow. Brain CT scan was negative for bleed. he was brought to the iCU and got a IN TL CVC complicated with a mediastinal hematoma yesterda. Dr Gupta was consulted. The patient had no issues with his airway. his Hb stabilized around 9-10 with a slow downtrend given the multiple blood tests. he has been getting blood tests Q2-3 hours ass the protocol for Na correction. Between 3 pm and 7 am today his Na increased by 8 meq. We will hold off 3% saline for a slow rise with a target of 10 meq /24 hours This morning the patient is alert oriented to place and time very appropriate responds adequately to verbal stimuli (hard of hearing) and has no apparent focal deficits. He is not in on the diagnosis yet. I had multiple discussions with his family yesterday. 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 THis is usually common with SCLC and H and neck cancers but the pancreas also has neuroendocrine cells and it is not entirely impossible for it to elaborate SIADH. Every time we hold the 3% saline the patient drifts his sodium down I will inquire with pharmacy on the availability of conivaptan Objective General Appearance: awake appropriate cachectic not in acute distress laceration on forehead improving Head: normocephalic, other (laceration left forehead with suture) ENT: normal ear exam Neck: normal range of motion, other (R IJ CVC) Respiratory: breath sounds normal, clear to auscultation Cardiovasular: regular rate/rhythm, normal S1S2 Abdomen: no masses, other (decreased BS, direct mild tenderness) Genitourinary - Male: external genitalia normal Back: normal inspection Upper Extremities: other (no Clubbing cyanosis or edema ) Lower Extremities: other (no Clubbing cyanosis or edema ) Pulses: carotid (R) (2+), carotid (L) (2+), radial (R) (2+), radial (L) (2+), dorsalis pedis (R) (2+), dorsalis pedis (L) (2+) Neuro: no focal motor deficits. 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 (6) iatrogenic mediastinal hematoma He has improved his sodium by about 8 meq over 16 hours and his MS has remarkably improved and near normalized. neurologic The AMS was due likely to symptomatic hyponatremia. We will treat underlying cause CT scan head later today. respiratory stable saturating 96-97% on RA will supplement O2 PRN cardiovascular will hold off ASA and lipitor at this point. Will send off a metabolic panel in am 07/09/16 GI checked swallowing and will start heart healthy diet Renal replete NA. to increase his Na by 10 Meq over the next 24 hours. No more than 12 meq per 24 hours to avoid cerebellar pontine myelinolysis. Will use 3% saline. Over the next 4 hours will hold off any hypertonic saline. Then will check PRP at 11 am. At that point will decide if we use 10 ml/ hr or continue to hold off. Magnesium repleted well and K as well monitor UO and electrolytes I called the pharamcy. Conivaptan is a non formulary. They will try to find it from local hospitals. She offered tolavaptan. However, with oral meds it is difficult to control the rate of correction. A prudent way would be to titrate him with conivaptan to the range of 130 or so and then shift him to oral tolavaptan. He will need a maintenance of some sort and it is not realistic to keep him in ICU for 3% saline indefinitely. ID he is on zosyn for leukocytosis There seems to be no focus of infection. procalcitonin does not suggest sepsis but a local infection. If cultures are negative will stop zosyn. DVT his lovenox stopped due to fall. Will resume heparin SC Q12 this pm after a CXR confirms stable mediastinal hematoma again. IF all goes well and CT brain is negative. then will progress to once daily lovenox Pancreatic cancer is high risk for DVT lines central line R IJ placed and he needs it carrillo in and he needs it I spoke to the family and he is a DNR/DNI at this point. They want all therapy and food but no CPR no MV. It is his wish. CC time 42min Consults & Procedures Consultants: nephrology oncology GI surgery cardiothoracic surgery Procedures: R IJ TL CVC Data Medications: Current Inpatient Medications Medications (Trade) Dose Ordered Sig/El Route Start Time Stop Time Status Last Admin Dose Admin Enoxaparin Sodium (Lovenox Inj) 40 mg Q24H SC 07/05/16 21:00 08/04/16 20:59 Future Hold 07/06/16 20:46 40 MG Acetaminophen (Tylenol Tab) 650 mg Q4H PRN PO 07/05/16 15:45 08/04/16 15:44 Ondansetron HCl (Zofran Inj) 4 mg Q6H PRN IV 07/05/16 15:45 08/04/16 15:44 Aspirin (Ecotrin Tab) 81 mg DAILY PO 07/06/16 09:00 08/05/16 08:59 Future Hold 07/06/16 09:17 81 MG Piperacillin Sod/ Tazobactam Sod (Consult) 1 ea UD PRN N/A 07/05/16 17:00 08/04/16 16:59 Piperacillin Sod/ Tazobactam Sod 3.375 gm/Dextrose 115 ml @ 28.75 mls/ hr Q8H IV 07/06/16 00:00 07/16/16 00:00 07/08/16 07:43 28.75 MLS/HR Ioversol (Optiray 320) 125 ml UD PRN IV 07/06/16 11:45 07/10/16 11:44 Pantoprazole Sodium 40 mg/ Syringe 10 ml @ 5 mls/min DAILY@11 IV 07/08/16 11:00 08/07/16 10:59 Fluticasone Propionate (Flonase Nasal [place]) 1 sprays DAILY NA 07/08/16 09:00 08/07/16 08:59 07/08/16 07:44 1 SPRAYS Sodium Chloride 500 ml @ 15 mls/hr Q24H IV 07/08/16 03:45 08/07/16 03:44 07/08/16 03:45 15 MLS/HR Vital Signs: Date Time Temp Pulse Resp B/P (MAP) Pulse Ox O2 Delivery O2 Flow Rate FiO2 07/08/16 06:07 07/08/16 06:04 36.9 89 18 109/59 100 07/08/16 05:20 94 16 99/51 07/08/16 04:00 07/08/16 04:00 100 Room Air 07/08/16 04:00 100 Room Air 07/08/16 04:00 96 16 96/54 100 07/08/16 02:00 92 16 77/60 100 07/08/16 01:02 93 16 119/56 (77) 100 07/08/16 00:00 07/08/16 00:00 100 Room Air 07/08/16 00:00 91 16 96/51 100 07/08/16 00:00 100 Room Air 07/07/16 23:08 84 16 100/55 100 07/07/16 22:00 84 16 157/105 (122) 99 07/07/16 21:01 84 18 91/52 100 07/07/16 20:00 92 16 103/56 100 07/07/16 20:00 100 Room Air 07/07/16 20:00 100 Room Air 07/07/16 19:56 37.1 07/07/16 19:53 80 18 108/60 100 07/07/16 18:00 88 18 94/70 (78) 99 Room Air 07/07/16 16:00 99 Room Air 07/07/16 16:00 99 Room Air 07/07/16 16:00 36.7 92 20 115/62 (79) 98 Room Air 07/07/16 14:30 36.9 07/07/16 14:21 96 22 82/51 96 07/07/16 14:00 90 15 84/55 95 07/07/16 13:04 84/63 (70) 07/07/16 12:00 Room Air 07/07/16 11:37 108 24 90/54 96 07/07/16 11:27 98 25 62/48 90 07/07/16 11:22 99 25 70/47 88 07/07/16 11:17 98 27 113/87 97 07/07/16 11:00 119 20 94/71 07/07/16 10:30 36.5 101 25 97 07/07/16 10:08 36.5 89 21 98 Laboratory Results: Last 24 Hours Test 07/07/16 09:10 07/07/16 09:30 07/07/16 12:43 07/07/16 15:11 Urine Osmolality 611 mOms/kg Urine Random Sodium 75 mEq/L Hemoglobin 10.8 g/dL Hematocrit 29.7 % Sodium Level 116 mmol/L Potassium Level 3.7 mmol/L Chloride Level 82 mmol/L Carbon Dioxide Level 21 mmol/L Anion Gap 13.0 mmol/L Blood Urea Nitrogen 8 mg/dl Creatinine 0.85 mg/dl Est Creatinine Clear Calc Drug Dose 52.9 ml/min Estimated GFR () 92.7 Estimated GFR (Non- 80.0 BUN/Creatinine Ratio 9.6 Random Glucose 136 mg/dl Calcium Level 8.4 mg/dl Ionized Calcium 1.09 mmol/l Procalcitonin 0.12 ng/ml Bedside Hemoglobin 8.8 g/dl Bedside Hematocrit 26 % Bedside Blood Gas pH (LAB) 7.38 Bedside Blood Gas pCO2 (LAB) 33 mmHg Bedside Blood Gas pO2 (LAB) 23 mmHg Bedside Blood Gas HCO3 (LAB) 19 meq/L Bedside Blood Gas Total CO2 20 mEq/l Bedside Blood Gas Base Excess (LAB) -6.0 meq/L Bedside Blood Gas O2 Saturation 40.0 % Bedside Sodium 115 mEq/L Bedside Potassium 3.6 mEq/L Test 07/07/16 15:21 07/07/16 16:01 07/07/16 18:11 07/07/16 20:03 Hemoglobin 9.7 g/dL 10.4 g/dL 9.3 g/dL Hematocrit 25.6 % 27.7 % 25.0 % Sodium Level 118 mmol/L 118 mmol/L 115 mmol/L 117 mmol/L Potassium Level 3.7 mmol/L 4.0 mmol/L 4.3 mmol/L Chloride Level 85 mmol/L 85 mmol/L 87 mmol/L Carbon Dioxide Level 23 mmol/L 22 mmol/L 21 mmol/L Anion Gap 10.0 mmol/L 11.0 mmol/L 9.0 mmol/L Blood Urea Nitrogen 8 mg/dl 9 mg/dl 9 mg/dl Creatinine 0.81 mg/dl 0.82 mg/dl 0.74 mg/dl Est Creatinine Clear Calc Drug Dose 55.5 ml/min 54.8 ml/min 60.8 ml/min Estimated GFR () 94.6 94.1 98.2 Estimated GFR (Non- 81.6 81.2 84.7 BUN/Creatinine Ratio 10.4 10.6 12.7 Random Glucose 156 mg/dl 131 mg/dl 116 mg/dl Calcium Level 7.4 mg/dl 8.0 mg/dl 7.3 mg/dl Magnesium Level 2.8 mg/dl Test 07/07/16 20:13 07/07/16 23:56 07/08/16 01:49 07/08/16 02:54 Bedside Glucose 135 mg/dl 114 mg/dl Sodium Level 121 mmol/L 121 mmol/L Potassium Level 4.3 mmol/L 3.9 mmol/L Chloride Level 89 mmol/L 89 mmol/L Carbon Dioxide Level 22 mmol/L 22 mmol/L Anion Gap 10.0 mmol/L 10.0 mmol/L Blood Urea Nitrogen 10 mg/dl 10 mg/dl Creatinine 0.73 mg/dl 0.76 mg/dl Est Creatinine Clear Calc Drug Dose 61.6 ml/min 59.2 ml/min Estimated GFR () 98.7 97.1 Estimated GFR (Non- 85.2 83.8 BUN/Creatinine Ratio 13.5 12.7 Random Glucose 96 mg/dl 95 mg/dl Calcium Level 7.6 mg/dl 7.5 mg/dl Magnesium Level 2.4 mg/dl Test 07/08/16 07:10 Hemoglobin 8.6 g/dL Hematocrit 23.0 % Sodium Level 123 mmol/L Potassium Level 3.7 mmol/L Chloride Level 91 mmol/L Carbon Dioxide Level 22 mmol/L Anion Gap 10.0 mmol/L Blood Urea Nitrogen 9 mg/dl Creatinine 0.66 mg/dl Est Creatinine Clear Calc Drug Dose 64.0 ml/min Estimated GFR () 102.9 Estimated GFR (Non- 88.8 BUN/Creatinine Ratio 13.9 Random Glucose 84 mg/dl Calcium Level 7.4 mg/dl
--- NOTE | 2016-07-08 09:07 | SURGERY PROGRESS NOTE ---
DATE: 07/08/2016 SUBJECTIVE: Mr. Chaudhari was seen today and frankly he looks superb. He is awake. He is alert. He is "doing his exercises." I reviewed his x-ray and his mediastinum really does not look enlarged today. He has no pneumothorax and no pleural effusion. He has very little swelling in his neck. At this point, I would of course not intervene. He looks much improved to me.
--- NOTE | 2016-07-08 09:24 | DIAGNOSTIC IMAGING REPORT ---
CHEST ONE VIEW PORTABLE HISTORY: mediastinal hematoma COMPARISON: Chest 07/07/2016. FINDINGS: Right jugular central venous catheter terminates in the expected location of the SVC. Right paratracheal hematoma has decreased in size. This measures 4 cm in thickness. Mild left tracheal deviation has also improved. No pleural effusions. No definite pneumothorax. Right apical linear density favors a skin fold. The heart is normal in size. IMPRESSION: Slight decrease in size in the right paratracheal mediastinal hematoma. Electronically signed by: Sheng Nowak M.D. 07/08/2016 9:23 AM Dictated Date/Time: 07/08/2016 9:22 AM
--- NOTE | 2016-07-08 10:28 | Progress Note ---
Internal Med Progress Note Date of Service: Jul 08, 2016. Provider Documentation: SUBJECTIVE: pt seen in ICU 103 had uneventful night awake and alert today able to answer questions multiple family members present at bedside ( , daughter , son ) pt could recognize everyone , had breakfast no complain of chest pain or headache does not have any recollection of yesterday barely remember events that brought him to hospital can tell that he is in a hospital in [place] OBJECTIVE: Vital Signs-as noted below Exam: General-awake and alert , no distress noted, conversing , able to answer questions HEENT : healed cut on left upper eye brow , suture in place , RT IJ central line in place Lungs-diminished, Heart-regular S1/S2 Abdomen-soft, non tender Extremities-no lower ext edema Neuro-more awake and alert today , no focal neurological deficit Lab data as noted below. 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 metastatic pancreatic CA with mets to lungs /liver lab work as out pt on 06/07/16 Na 135 - presented with Na 121 /syncope Na level had improved 123-125 with IV NSS pt had improved mental status on 07/06/16 evening -asking appropriate questions regarding his Ca diagnosis early AM 07/07/16 sustained a fall hitting his head became confused , disoriented Na level 115 post concussion appreciate input from Nephrology pt was transferred to ICU for close monitoring of hemodynamics/Rt IJ IV access placed for hypertonic 3% NSS infusion Na improved 123 needs slow correction not more than 10 meq /24 hrs hypertonic solution on hold cont to monitor Na level appreciate help and input form Rod Buster Helper post IJ placement complicated by mediastinal hematoma evaluated by CT surgery -stable hematoma in today's Cxray , no respiratory compromise pt's mental status improved markedly after correction of Hyponatremia cont slow correction pt will be continued to be monitor in ICU METASTATIC PANCREATIC MASS, NEW DIAGNOSIS - noted on CT abdomen/pelvis this Admission - new diagnosis with likely hepatic and lung mets previous USG of abdomen on 06/01/16 for abdominal discomfort noted normal liver parenchyma -no gall bladder mass noted pancreas could not be visualized due to overlying bowel loop/gas CT ABDOMEN /PELVIS WITH IV CONTRAST : 07/05/16 --large heterogeneous and ill-defined mass lesion measuring up to at least 4.5 cm which likely arises from the uncinate process of the pancreas. The posterior to the superior mesenteric artery which is partially encased, and abnormal soft tissue tracks inferiorly along the mesentery. This should be considered a pancreatic neoplasm until proven otherwise. -Multifocal hepatic metastatic disease is again noted. -- Enlarged gastrohepatic lymph nodes likely represent metastatic disease. A peritoneal implant is also identified. - irregular subpleural opacities present at both lung bases -pleural-based metastatic lesions or possibly the sequelae of pulmonary infarcts. -appreciate input form GI , plan for out pt EUS in 2-3 and biopsy for definitive diagnosis -if pt;s condition improves enough to be able to have anesthesia for the procedure and family still willing for the biopsy -Heme onc consult requested -extremely poor prognosis with wide spread metastatic pancreatic CA -appreciate input -very poor prognosis with aggressive metastatic pancreatic CA with wide spread mets in past 3-4 months -vascular consult was requested for SMA stenosis /mass invasion General surgery consult recommend conservative management -pain control no evidence of bowel ischemia /bowel obstruction very poor prognosis -palliative care evaluation will be appropriate DIVERTICULITIS OF DESCENDING COLON - mild acute descending colon diverticulitis noted on CT - with persistent leukocytosis-repeat cultures ordered - On IV Zosyn -need total 10 days of tx can be transitioned to PO Cipro /Flagyl once clinically better /prior to discharge -GI eval appreciated DVT PROPHYLAXIS high risk for DVT with metastatic ca - SQ Lovenox CODE STATUS DNR/DNI - DISPOSITION continue to monitor in ICU for severe Hyponatremia Vital Signs: Date Time Temp Pulse Resp B/P (MAP) Pulse Ox O2 Delivery O2 Flow Rate FiO2 07/08/16 09:01 100 21 85/54 100 07/08/16 08:02 90 24 93/52 100 07/08/16 08:00 Room Air 07/08/16 08:00 36.7 07/08/16 07:01 87 18 95/54 100 07/08/16 06:07 07/08/16 06:04 36.9 89 18 109/59 100 07/08/16 05:20 94 16 99/51 07/08/16 04:00 07/08/16 04:00 100 Room Air 07/08/16 04:00 100 Room Air 07/08/16 04:00 96 16 96/54 100 07/08/16 02:00 92 16 77/60 100 07/08/16 01:02 93 16 119/56 (77) 100 07/08/16 00:00 07/08/16 00:00 100 Room Air 07/08/16 00:00 91 16 96/51 100 07/08/16 00:00 100 Room Air 07/07/16 23:08 84 16 100/55 100 07/07/16 22:00 84 16 157/105 (122) 99 07/07/16 21:01 84 18 91/52 100 07/07/16 20:00 92 16 103/56 100 07/07/16 20:00 100 Room Air 07/07/16 20:00 100 Room Air 07/07/16 19:56 37.1 07/07/16 19:53 80 18 108/60 100 07/07/16 18:00 88 18 94/70 (78) 99 Room Air 07/07/16 16:00 99 Room Air 07/07/16 16:00 99 Room Air 07/07/16 16:00 36.7 92 20 115/62 (79) 98 Room Air 07/07/16 14:30 36.9 07/07/16 14:21 96 22 82/51 96 07/07/16 14:00 90 15 84/55 95 07/07/16 13:04 84/63 (70) 07/07/16 12:00 Room Air 07/07/16 11:37 108 24 90/54 96 07/07/16 11:27 98 25 62/48 90 07/07/16 11:22 99 25 70/47 88 07/07/16 11:17 98 27 113/87 97 07/07/16 11:00 119 20 94/71 Lab Results: Results Past 24 Hours Test 07/07/16 12:43 07/07/16 15:11 07/07/16 15:21 07/07/16 16:01 Range/Units Hemoglobin 10.8 9.7 10.4 14.0-18.0 g/dL Hematocrit 29.7 25.6 27.7 42-52 % Sodium Level 116 118 118 136-145 mmol/L Potassium Level 3.7 3.7 4.0 3.5-5.1 mmol/L Chloride Level 82 85 85 98-107 mmol/L Carbon Dioxide Level 21 23 22 21-32 mmol/L Anion Gap 13.0 10.0 11.0 3-11 mmol/L Blood Urea Nitrogen 8 8 9 7-18 mg/dl Creatinine 0.85 0.81 0.82 0.60-1.40 mg/dl Est Creatinine Clear Calc Drug Dose 52.9 55.5 54.8 ml/min Estimated GFR () 92.7 94.6 94.1 Estimated GFR (Non- 80.0 81.6 81.2 BUN/Creatinine Ratio 9.6 10.4 10.6 10-20 Random Glucose 136 156 131 70-99 mg/dl Calcium Level 8.4 7.4 8.0 8.5-10.1 mg/dl Ionized Calcium 1.09 1.12-1.32 mmol/l Procalcitonin 0.12 0-0.5 ng/ml Bedside Hemoglobin 8.8 14.0-18.0 g/dl Bedside Hematocrit 26 42-52 % Bedside Blood Gas pH (LAB) 7.38 7.35-7.45 Bedside Blood Gas pCO2 (LAB) 33 35-46 mmHg Bedside Blood Gas pO2 (LAB) 23 80-95 mmHg Bedside Blood Gas HCO3 (LAB) 19 19-24 meq/L Bedside Blood Gas Total CO2 20 24-31 mEq/l Bedside Blood Gas Base Excess (LAB) -6.0 -9-1.8 meq/L Bedside Blood Gas O2 Saturation 40.0 90-95 % Bedside Sodium 115 135-144 mEq/L Bedside Potassium 3.6 3.3-5.0 mEq/L Magnesium Level 2.8 1.8-2.4 mg/dl Test 07/07/16 18:11 07/07/16 20:03 07/07/16 20:13 07/07/16 23:56 Range/Units Sodium Level 115 117 121 136-145 mmol/L Hemoglobin 9.3 14.0-18.0 g/dL Hematocrit 25.0 42-52 % Potassium Level 4.3 4.3 3.5-5.1 mmol/L Chloride Level 87 89 98-107 mmol/L Carbon Dioxide Level 21 22 21-32 mmol/L Anion Gap 9.0 10.0 3-11 mmol/L Blood Urea Nitrogen 9 10 7-18 mg/dl Creatinine 0.74 0.73 0.60-1.40 mg/dl Est Creatinine Clear Calc Drug Dose 60.8 61.6 ml/min Estimated GFR () 98.2 98.7 Estimated GFR (Non- 84.7 85.2 BUN/Creatinine Ratio 12.7 13.5 10-20 Random Glucose 116 96 70-99 mg/dl Calcium Level 7.3 7.6 8.5-10.1 mg/dl Bedside Glucose 135 70-99 mg/dl Test 07/08/16 01:49 07/08/16 02:54 07/08/16 07:10 Range/Units Bedside Glucose 114 70-99 mg/dl Sodium Level 121 123 136-145 mmol/L Potassium Level 3.9 3.7 3.5-5.1 mmol/L Chloride Level 89 91 98-107 mmol/L Carbon Dioxide Level 22 22 21-32 mmol/L Anion Gap 10.0 10.0 3-11 mmol/L Blood Urea Nitrogen 10 9 7-18 mg/dl Creatinine 0.76 0.66 0.60-1.40 mg/dl Est Creatinine Clear Calc Drug Dose 59.2 64.0 ml/min Estimated GFR () 97.1 102.9 Estimated GFR (Non- 83.8 88.8 BUN/Creatinine Ratio 12.7 13.9 10-20 Random Glucose 95 84 70-99 mg/dl Calcium Level 7.5 7.4 8.5-10.1 mg/dl Magnesium Level 2.4 1.8-2.4 mg/dl Hemoglobin 8.6 14.0-18.0 g/dL Hematocrit 23.0 42-52 % Microbiology Results 07/07/16 Blood Culture, Received Pending 07/07/16 Blood Culture, Received Pending 07/07/16 MRSA DNA Surveillance Screen - Final, Complete Specimen Negative for MRSA by DNA Probe 07/07/16 Urine Culture, Received Pending
[2016-07-08] MEDS: PANTOprazole INJ 40 MG in SYRINGE 0 ML IV SCH (12:00)
[2016-07-08 12:19] LABS: HEMATOCRIT 23.1 % (42-52)
[2016-07-08 12:38] LABS: BUN/CREATININE RATIO 11.5 (10-20); CALCIUM 7.5 mg/dl (8.5-10.1); CREATININE 0.81 mg/dl (0.60-1.40); POTASSIUM 3.6 mmol/L (3.5-5.1)
--- NOTE | 2016-07-08 14:06 | Surgery Progress Note ---
Surgery Progress Note Date of Service Jul 08, 2016. Subjective + feeling well pt is doing fine, no abdominal pain, no nausea, no vomiting, Objective Vital Signs: Date Time Temp Pulse Resp B/P (MAP) Pulse Ox O2 Delivery O2 Flow Rate FiO2 07/08/16 13:02 95 21 101/54 100 07/08/16 12:02 100 19 103/59 100 07/08/16 12:00 Room Air 07/08/16 12:00 36.6 07/08/16 11:01 92 16 108/60 100 07/08/16 10:01 98 15 102/60 100 07/08/16 09:01 100 21 85/54 100 07/08/16 08:02 90 24 93/52 100 07/08/16 08:00 Room Air 07/08/16 08:00 36.7 07/08/16 07:01 87 18 95/54 100 07/08/16 06:07 07/08/16 06:04 36.9 89 18 109/59 100 07/08/16 05:20 94 16 99/51 07/08/16 04:00 07/08/16 04:00 100 Room Air 07/08/16 04:00 100 Room Air 07/08/16 04:00 96 16 96/54 100 07/08/16 02:00 92 16 77/60 100 07/08/16 01:02 93 16 119/56 (77) 100 07/08/16 00:00 07/08/16 00:00 100 Room Air 07/08/16 00:00 91 16 96/51 100 07/08/16 00:00 100 Room Air 07/07/16 23:08 84 16 100/55 100 07/07/16 22:00 84 16 157/105 (122) 99 07/07/16 21:01 84 18 91/52 100 07/07/16 20:00 92 16 103/56 100 07/07/16 20:00 100 Room Air 07/07/16 20:00 100 Room Air 07/07/16 19:56 37.1 07/07/16 19:53 80 18 108/60 100 07/07/16 18:00 88 18 94/70 (78) 99 Room Air 07/07/16 16:00 99 Room Air 07/07/16 16:00 99 Room Air 07/07/16 16:00 36.7 92 20 115/62 (79) 98 Room Air 07/07/16 14:30 36.9 07/07/16 14:21 96 22 82/51 96 General Appearance: WD/WN Head: normocephalic Neck: supple, no JVD Respiratory/Chest: chest non-tender, lungs clear Cardiovascular: regular rate, rhythm, no edema, no gallop, no JVD Abdomen: normal bowel sounds, non tender, non distended, soft Extremities: normal range of motion, non-tender, normal inspection Laboratory Results: Results Past 24 Hours Test 07/07/16 15:11 07/07/16 15:21 07/07/16 16:01 07/07/16 18:11 Range/Units Bedside Hemoglobin 8.8 14.0-18.0 g/dl Bedside Hematocrit 26 42-52 % Bedside Blood Gas pH (LAB) 7.38 7.35-7.45 Bedside Blood Gas pCO2 (LAB) 33 35-46 mmHg Bedside Blood Gas pO2 (LAB) 23 80-95 mmHg Bedside Blood Gas HCO3 (LAB) 19 19-24 meq/L Bedside Blood Gas Total CO2 20 24-31 mEq/l Bedside Blood Gas Base Excess (LAB) -6.0 -9-1.8 meq/L Bedside Blood Gas O2 Saturation 40.0 90-95 % Bedside Sodium 115 135-144 mEq/L Bedside Potassium 3.6 3.3-5.0 mEq/L Hemoglobin 9.7 10.4 14.0-18.0 g/dL Hematocrit 25.6 27.7 42-52 % Sodium Level 118 118 115 136-145 mmol/L Potassium Level 3.7 4.0 3.5-5.1 mmol/L Chloride Level 85 85 98-107 mmol/L Carbon Dioxide Level 23 22 21-32 mmol/L Anion Gap 10.0 11.0 3-11 mmol/L Blood Urea Nitrogen 8 9 7-18 mg/dl Creatinine 0.81 0.82 0.60-1.40 mg/dl Est Creatinine Clear Calc Drug Dose 55.5 54.8 ml/min Estimated GFR () 94.6 94.1 Estimated GFR (Non- 81.6 81.2 BUN/Creatinine Ratio 10.4 10.6 10-20 Random Glucose 156 131 70-99 mg/dl Calcium Level 7.4 8.0 8.5-10.1 mg/dl Magnesium Level 2.8 1.8-2.4 mg/dl Test 07/07/16 20:03 07/07/16 20:13 07/07/16 23:56 07/08/16 01:49 Range/Units Hemoglobin 9.3 14.0-18.0 g/dL Hematocrit 25.0 42-52 % Sodium Level 117 121 136-145 mmol/L Potassium Level 4.3 4.3 3.5-5.1 mmol/L Chloride Level 87 89 98-107 mmol/L Carbon Dioxide Level 21 22 21-32 mmol/L Anion Gap 9.0 10.0 3-11 mmol/L Blood Urea Nitrogen 9 10 7-18 mg/dl Creatinine 0.74 0.73 0.60-1.40 mg/dl Est Creatinine Clear Calc Drug Dose 60.8 61.6 ml/min Estimated GFR () 98.2 98.7 Estimated GFR (Non- 84.7 85.2 BUN/Creatinine Ratio 12.7 13.5 10-20 Random Glucose 116 96 70-99 mg/dl Calcium Level 7.3 7.6 8.5-10.1 mg/dl Bedside Glucose 135 114 70-99 mg/dl Test 07/08/16 02:54 07/08/16 07:10 07/08/16 12:13 Range/Units Sodium Level 121 123 120 136-145 mmol/L Potassium Level 3.9 3.7 3.6 3.5-5.1 mmol/L Chloride Level 89 91 88 98-107 mmol/L Carbon Dioxide Level 22 22 22 21-32 mmol/L Anion Gap 10.0 10.0 10.0 3-11 mmol/L Blood Urea Nitrogen 10 9 9 7-18 mg/dl Creatinine 0.76 0.66 0.81 0.60-1.40 mg/dl Est Creatinine Clear Calc Drug Dose 59.2 64.0 52.1 ml/min Estimated GFR () 97.1 102.9 94.6 Estimated GFR (Non- 83.8 88.8 81.6 BUN/Creatinine Ratio 12.7 13.9 11.5 10-20 Random Glucose 95 84 129 70-99 mg/dl Calcium Level 7.5 7.4 7.5 8.5-10.1 mg/dl Magnesium Level 2.4 1.8-2.4 mg/dl Hemoglobin 8.6 8.5 14.0-18.0 g/dL Hematocrit 23.0 23.1 42-52 % Assessment & Plan new Dx pancreatic mass, continue treatment, oncology consult will F/u
[2016-07-08 16:09] LABS: CALCIUM 7.4 mg/dl (8.5-10.1); CREATININE 0.83 mg/dl (0.60-1.40); POTASSIUM 3.6 mmol/L (3.5-5.1)
[2016-07-08 20:43] LABS: BUN/CREATININE RATIO 13.6 (10-20); CALCIUM 7.2 mg/dl (8.5-10.1); CREATININE 0.79 mg/dl (0.60-1.40); POTASSIUM 3.6 mmol/L (3.5-5.1)
[2016-07-08] MEDS: PIPERACILL/TAZOBAC IV 4.5 GM in DEXTROSE 5% 100ML IV SCH (23:41)
[2016-07-09] VITALS (24 sets, daily range): BP systolic 95–146; BP diastolic 48–106; PULSE 86–103; TEMP 36.6–37; O2SAT 95–100
[2016-07-09 00:13] LABS: BUN/CREATININE RATIO 15.6 (10-20); CALCIUM 7.3 mg/dl (8.5-10.1); CREATININE 0.66 mg/dl (0.60-1.40); POTASSIUM 3.5 mmol/L (3.5-5.1)
[2016-07-09 05:38] LABS: BASO % 0.2 %; BASO ABS # 0.02 K/uL (0-0.2); EOS % 1.5 %; HEMATOCRIT 21.2 % (42-52); IG% 0.5 %; LYMPH % 9.2 %; LYMPH ABS # 0.78 K/uL (1.2-3.4); MEAN CELL VOLUME 87.6 fL (80-100); MEAN CORPUSCULAR HEMOGLOBIN 32.2 pg (25-34); MEAN CORPUSCULAR HGB CONC 36.8 g/dl (32-36); MEAN PLATELET VOLUME 8.9 fL (7.4-10.4); NEUT % 80.6 %; PLATELET COUNT 184 K/uL (130-400); RED BLOOD COUNT 2.42 M/uL (4.7-6.1)
[2016-07-09 05:55] LABS: BUN/CREATININE RATIO 13.4 (10-20); CALCIUM 6.9 mg/dl (8.5-10.1); CREATININE 0.55 mg/dl (0.60-1.40); MAGNESIUM 1.8 mg/dl (1.8-2.4); POTASSIUM 3.2 mmol/L (3.5-5.1)
[2016-07-09 05:58] LABS: CHOLESTEROL/HDL RATIO 1.7
[2016-07-09 05:59] LABS: COMPLETE YES
[2016-07-09] MEDS ORDERED: POTASSIUM CHLORIDE 20 MEQ/15 ML UDC PO STA (06:17)
[2016-07-09] MEDS ORDERED: MAGNESIUM SULFATE 1GM / D5W 1 GM in PREMIXED IN D5W 100 ML IV STA (06:20)
[2016-07-09] MEDS ORDERED: CALCIUM GLUCONATE 10% 2,000 MG in SODIUM CHLORIDE 0.9% 50ML 50 ML IV STA (06:23)
[2016-07-09] MEDS ORDERED: POTASSIUM CHLORIDE 20 MEQ/15 ML UDC PO SCH ×2 (06:30→07:30)
--- NOTE | 2016-07-09 07:53 | DIAGNOSTIC IMAGING REPORT ---
SINGLE VIEW CHEST CLINICAL HISTORY: Follow-up mediastinal hematoma. FINDINGS: An AP, portable, upright chest radiograph is compared to study dated 07/08/2016 and correlated with chest CT dated 07/07/2016. The examination is degraded by portable technique and patient rotation. A right internal jugular central venous catheter is unchanged in position. The heart is normal in size and there is atherosclerotic calcification of the thoracic aorta. A right paratracheal density seen extending from the lower neck to the niraj is unchanged from yesterday and consistent with a mediastinal hematoma when correlated with recent chest CT. There is chronic interstitial thickening and nodularity. Numerous subpleural densities and bibasilar atelectasis are similar to previous. Small calcified granulomas are noted. There is no evidence of progressive airspace consolidation or large pleural effusion. Apical scarring is observed. No pneumothorax is seen. The skeletal structures are osteopenic. The bony thorax is grossly intact. IMPRESSION: 1. A right paramediastinal density is unchanged from yesterday and consistent with a mediastinal hematoma when correlated with the recent chest CT. 2. No airspace consolidation is identified typical for pneumonia and no pleural effusion is seen. 3. Chronic parenchyma changes and bibasilar atelectasis as above. Electronically signed by: Duc Britt M.D. 07/09/2016 7:51 AM Dictated Date/Time: 07/09/2016 7:48 AM
[2016-07-09] MEDS: PIPERACILL/TAZOBAC IV 4.5 GM in DEXTROSE 5% 100ML IV SCH (08:04)
[2016-07-09] MEDS: MAGNESIUM SULFATE 1GM / D5W 1 GM in PREMIXED IN D5W 100 ML IV SCH ×3 (08:19→11:39)
[2016-07-09 08:20] LABS: BUN/CREATININE RATIO 8.9 (10-20); CREATININE 0.73 mg/dl (0.60-1.40); POTASSIUM 3.7 mmol/L (3.5-5.1)
[2016-07-09] MEDS: FLUTICASONE PROPIONATE NA SPR 16 GM BTL SCH (08:21)
[2016-07-09 08:45] LABS: CALCIUM 8.3 mg/dl (8.5-10.1)
--- NOTE | 2016-07-09 08:56 | DIAGNOSTIC IMAGING REPORT ---
CT SCAN OF THE BRAIN WITHOUT IV CONTRAST CLINICAL HISTORY: Recent head injury. COMPARISON STUDY: CT of the brain dated 07/07/2016. TECHNIQUE: Unenhanced axial CT scan of the brain is performed from the vertex to the skull base. CT DOSE: 1074.96 mGy.cm FINDINGS: Brain parenchyma: There are age-related involutional changes noting mild subcortical and periventricular microangiopathic change. There is no hemorrhage, mass effect, or evidence of acute territorial ischemia by CT criteria. Rasmussen-white matter is preserved. No extra-axial fluid collection is seen. Ventricles, sulci, cisterns: Prominent secondary to involutional change. Intracranial vasculature: There is atherosclerotic calcification of the cavernous carotid and vertebral arteries. Calvarium: The skeletal structures are osteopenic. No depressed calvarial fracture is seen. Soft tissues: There is mild left periorbital scalp contusion. Sinuses and mastoids: Mild mucosal thickening seen within the maxillary antra. Mucosal thickening versus a retention cyst is noted in the left frontal sinus. The remaining visualized paranasal sinuses are clear. The mastoid air cells are well pneumatized. Orbits: The bony orbits are grossly intact. There are bilateral ocular lens implants. IMPRESSION: There is no hemorrhage, mass effect, or evidence of acute territorial ischemia by CT criteria, and there has been no significant change from 07/07/2016. Electronically signed by: Duc Britt M.D. 07/09/2016 8:55 AM Dictated Date/Time: 07/09/2016 8:52 AM
[2016-07-09] MEDS ORDERED: TOLVAPTAN TAB 15 MG TAB PO SCH (09:00)
[2016-07-09] MEDS: CONIVAPTAN IV SCH (10:12)
[2016-07-09] MEDS: DEXTROSE IV SCH (10:12)
[2016-07-09] MEDS ORDERED: NURSING VERBAL MED ORDER ONE ×2 (10:15→18:30)
[2016-07-09 10:32] LABS: BUN/CREATININE RATIO 9.8 (10-20); CALCIUM 7.5 mg/dl (8.5-10.1); CREATININE 0.73 mg/dl (0.60-1.40)
--- NOTE | 2016-07-09 11:24 | SURGERY PROGRESS NOTE ---
DATE: 07/09/2016 Mr. Chaudhari was seen today, on 07/09/2016. I had a long discussion with his and 2 children. From a thoracic surgery and vascular surgery standpoint, there will be no intervention. His x-ray has not really changed. He has other issues. He is markedly hyponatremic despite infusion of 3% normal saline. His hemoglobin has dropped, but I think this is probably due to dilution. Otherwise, he looks fine. He has no further swelling in his neck. The mediastinal hematoma is very small. It is very small by x-ray. At this point, I will sign off and will be glad to see him back should any problems arise. MICKY
--- NOTE | 2016-07-09 12:05 | Critical Care Progress Note ---
Critical Care Progress Note Date of Service Jul 09, 2016. ICU Day ICU Day Number: [address] Katrin Husain The patient was admitted with weakness and confusion. 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 The patient was confused walked on his own sustained a fall with laceration of the forehead and then got stitched over the L eyebrow. Brain CT scan was negative for bleed. he was brought to the iCU and got a IN TL CVC complicated with a mediastinal hematoma yesterda. Dr Gupta was consulted. The patient had no issues with his airway. his Hb stabilized around 9-10 with a slow downtrend given the multiple blood tests. he has been getting blood tests Q2-3 hours ass the protocol for Na correction. Between 3 pm and 7 am today his Na increased by 8 meq. 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 THis is usually common with SCLC and H and neck cancers but the pancreas also has neuroendocrine cells and it is not entirely impossible for it to elaborate SIADH. Every time we hold the 3% saline the patient drifts his sodium down I will inquire with pharmacy on the availability of conivaptan So over the past 24 hours he has been fully oriented x 3 and cooperative. his sodium was treated with variable rates of 15-35 ml/hr of 3% saline and temporary holding with adequate rise in sodium. Since 1800 on 07/07/16 to 1030am his sodium domenica from 115 to 128 or about 0.325 meq/hour which is adequate The problem is he is diluting all the other values, K, Ca, Mg and Hb are all very diluted this am. We were able to get conivaptan and a drip was started without a bolus. Family updated. I spoke with Dr Truong yesterday. Apparently the US of the abdomen in 05/2016 had a good view of the pancreas but did not show a mass. This means his tumor is very aggressive and further evidence is provided by this wild worsening SIADH affecting all lab values despite 3% saline. no growth on cultuers he hasno complaints today Objective General Appearance: awake appropriate cachectic not in acute distress laceration on forehead improving Head: normocephalic, other (laceration left forehead with suture) ENT: normal ear exam Neck: normal range of motion, other (R IJ CVC) Respiratory: breath sounds normal, clear to auscultation Cardiovasular: regular rate/rhythm, normal S1S2 Abdomen: no masses, other (decreased BS, direct mild tenderness) Genitourinary - Male: external genitalia normal Back: normal inspection Upper Extremities: other (no Clubbing cyanosis or edema ) Lower Extremities: other (no Clubbing cyanosis or edema ) Pulses: carotid (R) (2+), carotid (L) (2+), radial (R) (2+), radial (L) (2+), dorsalis pedis (R) (2+), dorsalis pedis (L) (2+) Neuro: no focal motor deficits. 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 (6) iatrogenic mediastinal hematoma He has improved his sodium by about 8 meq over 16 hours and his MS has remarkably improved and near normalized. neurologic The AMS was due likely to symptomatic hyponatremia. We will treat underlying cause CT scan head shows no bleed we started lovenox prophylaxis respiratory stable saturating 96-97% on RA will supplement O2 PRN cardiovascular will hold off ASA and lipitor at this point. lipid panel shows LDL of 31 DC lipitor GI checked swallowing and will start heart healthy diet Renal replete NA. to increase his Na by 10 Meq over the next 24 hours. No more than 12 meq per 24 hours to avoid cerebellar pontine myelinolysis. Will titrate conivaptan without 3% saline. If he responds by stabilizing all his parameters he can be placed on oral tolvaptan Meanwhile 3% saline is on hold and I supplemented K by 60 meq (3.2) Mg by 3 gm ( 1.8) Ca by 2 gm Ca gluconate (6.9) and we will FU his Hb/Hct ID he is on zosyn for leukocytosis There seems to be no focus of infection. procalcitonin does not suggest sepsis but a local infection. cultures are negative stopped zosyn DVT daily lovenox reoeat CT head is negative, CXR shows no worsening of the mediastinal hematoma. Pancreatic cancer is high risk for DVT lines central line R IJ placed and he needs it carrillo in and he needs it I spoke to the family and he is a DNR/DNI at this point. They want all therapy and food but no CPR no MV. It is his wish. CC time 48 min Consults & Procedures Consultants: nephrology oncology GI surgery cardiothoracic surgery Procedures: R IJ TL CVC Data Medications: Current Inpatient Medications Medications (Trade) Dose Ordered Sig/El Route Start Time Stop Time Status Last Admin Dose Admin Enoxaparin Sodium (Lovenox Inj) 40 mg Q24H SC 07/05/16 21:00 08/04/16 20:59 Future hold 07/06/16 20:46 40 MG Acetaminophen (Tylenol Tab) 650 mg Q4H PRN PO 07/05/16 15:45 08/04/16 15:44 Ondansetron HCl (Zofran Inj) 4 mg Q6H PRN IV 07/05/16 15:45 08/04/16 15:44 Aspirin (Ecotrin Tab) 81 mg DAILY PO 07/06/16 09:00 08/05/16 08:59 Future Hold 07/06/16 09:17 81 MG Piperacillin Sod/ Tazobactam Sod (Consult) 1 ea UD PRN N/A 07/05/16 17:00 08/04/16 16:59 Ioversol (Optiray 320) 125 ml UD PRN IV 07/06/16 11:45 07/10/16 11:44 Pantoprazole Sodium 40 mg/ Syringe 10 ml @ 5 mls/min DAILY@11 IV 07/08/16 11:00 08/07/16 10:59 07/08/16 12:00 5 MLS/MIN Fluticasone Propionate (Flonase Nasal [place]) 1 sprays DAILY NA 07/08/16 09:00 08/07/16 08:59 07/09/16 08:21 1 SPRAYS Sodium Chloride 500 ml @ 35 mls/hr [id number] IV 07/08/16 03:45 08/07/16 03:44 07/08/16 20:16 30 MLS/HR Piperacillin Sod/ Tazobactam Sod 4.5 gm/Dextrose 120 ml @ 30 mls/hr Q8H IV 07/09/16 00:00 07/16/16 00:00 07/09/16 08:04 30 MLS/HR Tolvaptan (Samsca Tab) 15 mg QAM PO 07/09/16 09:00 08/08/16 08:59 Future Hold Conivaptan/ Dextrose 100 ml @ 4.2 mls/hr [id number] IV 07/09/16 10:00 07/12/16 09:59 07/09/16 10:12 4.2 MLS/HR Vital Signs: Date Time Temp Pulse Resp B/P (MAP) Pulse Ox O2 Delivery O2 Flow Rate FiO2 07/09/16 10:02 90 19 95/48 (64) 100 Room Air 07/09/16 08:01 36.8 103 16 110/54 (72) 100 Room Air 07/09/16 08:00 Room Air 07/09/16 07:01 93 17 112/62 (79) 100 Room Air 07/09/16 05:01 100 19 116/68 (84) 100 Room Air 07/09/16 04:01 36.8 100 25 113/66 (82) 100 Room Air 07/09/16 04:00 Room Air 07/09/16 03:02 103 26 109/61 (77) 100 Room Air 07/09/16 02:01 96 21 114/71 (85) 100 Room Air 07/09/16 01:01 97 21 108/63 (78) 100 Room Air 07/09/16 00:01 Room Air 07/09/16 00:01 36.6 99 17 99/57 (71) 100 Room Air 07/08/16 23:01 102 23 112/68 (83) 100 Room Air 07/08/16 22:02 98 16 109/58 (75) 100 Room Air 07/08/16 21:01 89 16 96/57 (70) 100 Room Air 07/08/16 20:01 36.6 101 19 102/62 (75) 100 Room Air 07/08/16 20:00 Room Air 07/08/16 19:02 96 20 111/53 (72) 100 Room Air 07/08/16 18:01 89 19 109/60 100 07/08/16 17:01 98 19 106/63 100 07/08/16 16:01 97 17 105/62 100 07/08/16 16:00 Room Air 07/08/16 16:00 36.7 07/08/16 15:02 98 21 106/63 100 07/08/16 14:02 94 17 104/58 100 07/08/16 13:02 95 21 101/54 100 07/08/16 12:02 100 19 103/59 100 07/08/16 12:00 Room Air 07/08/16 12:00 36.6 Laboratory Results: Last 24 Hours Test 07/08/16 12:13 07/08/16 15:35 07/08/16 20:13 07/08/16 23:40 Hemoglobin 8.5 g/dL Hematocrit 23.1 % Sodium Level 120 mmol/L 121 mmol/L 122 mmol/L 124 mmol/L Potassium Level 3.6 mmol/L 3.6 mmol/L 3.6 mmol/L 3.5 mmol/L Chloride Level 88 mmol/L 89 mmol/L 91 mmol/L 92 mmol/L Carbon Dioxide Level 22 mmol/L 21 mmol/L 22 mmol/L 22 mmol/L Anion Gap 10.0 mmol/L 11.0 mmol/L 9.0 mmol/L 10.0 mmol/L Blood Urea Nitrogen 9 mg/dl 11 mg/dl 11 mg/dl 10 mg/dl Creatinine 0.81 mg/dl 0.83 mg/dl 0.79 mg/dl 0.66 mg/dl Est Creatinine Clear Calc Drug Dose 52.1 ml/min 50.9 ml/min 53.5 ml/min 64.0 ml/min Estimated GFR () 94.6 93.6 95.6 102.9 Estimated GFR (Non- 81.6 80.8 82.5 88.8 BUN/Creatinine Ratio 11.5 13.0 13.6 15.6 Random Glucose 129 mg/dl 107 mg/dl 106 mg/dl 89 mg/dl Calcium Level 7.5 mg/dl 7.4 mg/dl 7.2 mg/dl 7.3 mg/dl Test 07/09/16 05:00 07/09/16 07:54 07/09/16 10:03 White Blood Count 8.50 K/uL Red Blood Count 2.42 M/uL Hemoglobin 7.8 g/dL Hematocrit 21.2 % Mean Corpuscular Volume 87.6 fL Mean Corpuscular Hemoglobin 32.2 pg Mean Corpuscular Hemoglobin Concent 36.8 g/dl Platelet Count 184 K/uL Mean Platelet Volume 8.9 fL Neutrophils (%) (Auto) 80.6 % Lymphocytes (%) (Auto) 9.2 % Monocytes (%) (Auto) 8.0 % Eosinophils (%) (Auto) 1.5 % Basophils (%) (Auto) 0.2 % Neutrophils # (Auto) 6.85 K/uL Lymphocytes # (Auto) 0.78 K/uL Monocytes # (Auto) 0.68 K/uL Eosinophils # (Auto) 0.13 K/uL Basophils # (Auto) 0.02 K/uL RDW Standard Deviation 43.4 fL RDW Coefficient of Variation 13.5 % Immature Granulocyte % (Auto) 0.5 % Immature Granulocyte # (Auto) 0.04 K/uL Red Blood Cell Morphology Unremarkable Sodium Level 128 mmol/L 126 mmol/L 128 mmol/L Potassium Level 3.2 mmol/L 3.7 mmol/L 4.0 mmol/L Chloride Level 97 mmol/L 94 mmol/L 96 mmol/L Carbon Dioxide Level 21 mmol/L 22 mmol/L 24 mmol/L Anion Gap 10.0 mmol/L 10.0 mmol/L 8.0 mmol/L Blood Urea Nitrogen 7 mg/dl 7 mg/dl 7 mg/dl Creatinine 0.55 mg/dl 0.73 mg/dl 0.73 mg/dl Est Creatinine Clear Calc Drug Dose 76.8 ml/min 56.5 ml/min 56.5 ml/min Estimated GFR () 110.9 98.7 98.7 Estimated GFR (Non- 95.7 85.2 85.2 BUN/Creatinine Ratio 13.4 8.9 9.8 Random Glucose 84 mg/dl 114 mg/dl 107 mg/dl Calcium Level 6.9 mg/dl 8.3 mg/dl 7.5 mg/dl Magnesium Level 1.8 mg/dl Triglycerides Level 66 mg/dl Cholesterol Level 103 mg/dl HDL Cholesterol 59 mg/dl LDL Cholesterol, Calculated 31 mg/dl VLDL Cholesterol, Calculated 13 mg/dl Cholesterol/HDL Ratio 1.7
[2016-07-09 13:24] LABS: HEMATOCRIT 22.1 % (42-52)
[2016-07-09 13:44] LABS: BUN/CREATININE RATIO 7.9 (10-20); CALCIUM 7.4 mg/dl (8.5-10.1); CREATININE 0.89 mg/dl (0.60-1.40); PHOSPHORUS 1.7 mg/dl (2.5-4.9); POTASSIUM 3.9 mmol/L (3.5-5.1)
[2016-07-09] MEDS: PANTOprazole INJ 40 MG in SYRINGE 0 ML IV SCH (14:04)
--- NOTE | 2016-07-09 14:30 | Surgery Progress Note ---
Surgery Progress Note Date of Service Jul 09, 2016. Subjective + feeling well pt is stable, no C/O, Objective Vital Signs: Date Time Temp Pulse Resp B/P (MAP) Pulse Ox O2 Delivery O2 Flow Rate FiO2 07/09/16 14:02 86 20 119/70 (86) 100 Room Air 07/09/16 13:01 93 16 114/57 (76) 100 Room Air 07/09/16 12:02 97 19 103/60 (74) 100 Room Air 07/09/16 12:00 Room Air 07/09/16 11:01 90 17 107/54 (71) 100 Room Air 07/09/16 10:02 90 19 95/48 (64) 100 Room Air 07/09/16 08:01 36.8 103 16 110/54 (72) 100 Room Air 07/09/16 08:00 Room Air 07/09/16 07:01 93 17 112/62 (79) 100 Room Air 07/09/16 05:01 100 19 116/68 (84) 100 Room Air 07/09/16 04:01 36.8 100 25 113/66 (82) 100 Room Air 07/09/16 04:00 Room Air 07/09/16 03:02 103 26 109/61 (77) 100 Room Air 07/09/16 02:01 96 21 114/71 (85) 100 Room Air 07/09/16 01:01 97 21 108/63 (78) 100 Room Air 07/09/16 00:01 Room Air 07/09/16 00:01 36.6 99 17 99/57 (71) 100 Room Air 07/08/16 23:01 102 23 112/68 (83) 100 Room Air 07/08/16 22:02 98 16 109/58 (75) 100 Room Air 07/08/16 21:01 89 16 96/57 (70) 100 Room Air 07/08/16 20:01 36.6 101 19 102/62 (75) 100 Room Air 07/08/16 20:00 Room Air 07/08/16 19:02 96 20 111/53 (72) 100 Room Air 07/08/16 18:01 89 19 109/60 100 07/08/16 17:01 98 19 106/63 100 07/08/16 16:01 97 17 105/62 100 07/08/16 16:00 Room Air 07/08/16 16:00 36.7 07/08/16 15:02 98 21 106/63 100 General Appearance: WD/WN Head: normocephalic Neck: supple, no JVD Respiratory/Chest: chest non-tender, lungs clear Cardiovascular: regular rate, rhythm, no edema Abdomen: normal bowel sounds, non tender, non distended, soft Extremities: normal range of motion, non-tender, normal inspection Laboratory Results: Results Past 24 Hours Test 07/08/16 15:35 07/08/16 20:13 07/08/16 23:40 07/09/16 05:00 Range/Units Sodium Level 121 122 124 128 136-145 mmol/L Potassium Level 3.6 3.6 3.5 3.2 3.5-5.1 mmol/L Chloride Level 89 91 92 97 98-107 mmol/L Carbon Dioxide Level 21 22 22 21 21-32 mmol/L Anion Gap 11.0 9.0 10.0 10.0 3-11 mmol/L Blood Urea Nitrogen 11 11 10 7 7-18 mg/dl Creatinine 0.83 0.79 0.66 0.55 0.60-1.40 mg/dl Est Creatinine Clear Calc Drug Dose 50.9 53.5 64.0 76.8 ml/min Estimated GFR () 93.6 95.6 102.9 110.9 Estimated GFR (Non- 80.8 82.5 88.8 95.7 BUN/Creatinine Ratio 13.0 13.6 15.6 13.4 10-20 Random Glucose 107 106 89 84 70-99 mg/dl Calcium Level 7.4 7.2 7.3 6.9 8.5-10.1 mg/dl White Blood Count 8.50 4.8-10.8 K/uL Red Blood Count 2.42 4.7-6.1 M/uL Hemoglobin 7.8 14.0-18.0 g/dL Hematocrit 21.2 42-52 % Mean Corpuscular Volume 87.6 80-100 fL Mean Corpuscular Hemoglobin 32.2 25-34 pg Mean Corpuscular Hemoglobin Concent 36.8 32-36 g/dl Platelet Count 184 130-400 K/uL Mean Platelet Volume 8.9 7.4-10.4 fL Neutrophils (%) (Auto) 80.6 % Lymphocytes (%) (Auto) 9.2 % Monocytes (%) (Auto) 8.0 % Eosinophils (%) (Auto) 1.5 % Basophils (%) (Auto) 0.2 % Neutrophils # (Auto) 6.85 1.4-6.5 K/uL Lymphocytes # (Auto) 0.78 1.2-3.4 K/uL Monocytes # (Auto) 0.68 0.11-0.59 K/uL Eosinophils # (Auto) 0.13 0-0.5 K/uL Basophils # (Auto) 0.02 0-0.2 K/uL RDW Standard Deviation 43.4 36.4-46.3 fL RDW Coefficient of Variation 13.5 11.5-14.5 % Immature Granulocyte % (Auto) 0.5 % Immature Granulocyte # (Auto) 0.04 0.00-0.02 K/uL Red Blood Cell Morphology Unremarkable Magnesium Level 1.8 1.8-2.4 mg/dl Triglycerides Level 66 0-150 mg/dl Cholesterol Level 103 0-200 mg/dl HDL Cholesterol 59 mg/dl LDL Cholesterol, Calculated 31 mg/dl VLDL Cholesterol, Calculated 13 mg/dl Cholesterol/HDL Ratio 1.7 Test 07/09/16 07:54 07/09/16 10:03 07/09/16 13:06 Range/Units Sodium Level 126 128 131 136-145 mmol/L Potassium Level 3.7 4.0 3.9 3.5-5.1 mmol/L Chloride Level 94 96 99 98-107 mmol/L Carbon Dioxide Level 22 24 24 21-32 mmol/L Anion Gap 10.0 8.0 8.0 3-11 mmol/L Blood Urea Nitrogen 7 7 7 7-18 mg/dl Creatinine 0.73 0.73 0.89 0.60-1.40 mg/dl Est Creatinine Clear Calc Drug Dose 56.5 56.5 46.3 ml/min Estimated GFR () 98.7 98.7 91.0 Estimated GFR (Non- 85.2 85.2 78.5 BUN/Creatinine Ratio 8.9 9.8 7.9 10-20 Random Glucose 114 107 117 70-99 mg/dl Calcium Level 8.3 7.5 7.4 8.5-10.1 mg/dl Hemoglobin 8.2 14.0-18.0 g/dL Hematocrit 22.1 42-52 % Phosphorus Level 1.7 2.5-4.9 mg/dl Assessment & Plan new Dx pancreatic mass, continue treatment, oncology consult will F/u 07/09/2016 continue treatment will F/U new Dx pancreatic mass, continue treatment, oncology consult will F/u
[2016-07-09 16:21] LABS: HEMATOCRIT 22.3 % (42-52)
[2016-07-09 16:51] LABS: BUN/CREATININE RATIO 8.4 (10-20); CALCIUM 7.5 mg/dl (8.5-10.1); CREATININE 0.91 mg/dl (0.60-1.40); MAGNESIUM 2.5 mg/dl (1.8-2.4); PHOSPHORUS 1.7 mg/dl (2.5-4.9)
[2016-07-09] MEDS ORDERED: SODIUM PHOSPHATE 3 MMOL/1 ML INFUSION IV STA (17:21)
[2016-07-09] MEDS ORDERED: SODIUM PHOSPHATE INJ 21 MMOL in SODIUM CHLORIDE 0.9% 500ML 500 ML IV SCH (18:00)
[2016-07-09] MEDS: POT PHOSPHATE MONOBASIC W/ SOD TAB PO SCH ×2 (18:14→23:24)
[2016-07-09] MEDS: ENOXAPARIN 40 MG/0.4 ML SYR SC SCH (20:09)
[2016-07-09 20:30] LABS: CREATININE 0.9 mg/dl (0.60-1.40); POTASSIUM 3.9 mmol/L (3.5-5.1)
--- NOTE | 2016-07-09 20:34 | Progress Note ---
Internal Med Progress Note Date of Service: Jul 09, 2016. Provider Documentation: SUBJECTIVE: remains awake and alert , answering questions appropriately no sign of distress appetite fair OBJECTIVE: Vital Signs-as noted below Exam: General-awake and alert , no distress noted, conversing , HEENT : healed cut on left upper eye brow , suture in place , RT IJ central line in place Lungs-diminished, Heart-regular S1/S2 Abdomen-soft, non tender Extremities-no lower ext edema Neuro-awake and alert , normal orientation , no focal neurological deficit Lab data as noted below. 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 lab work as out pt on 06/07/16 Na 135 - presented with Na 121 /syncope Na level had improved 123-125 with IV NSS pt had improved mental status on 07/06/16 evening -asking appropriate questions regarding his Ca diagnosis early AM 07/07/16 sustained a fall hitting his head became confused , disoriented Na level 115 post concussion appreciate input from Nephrology pt was transferred to ICU for close monitoring of hemodynamics/Rt IJ IV access placed for hypertonic 3% NSS infusion needs slow correction not more than 10 meq /24 hrs Na slowly improved to 131 3% saline D/avni Conivaptan ( vasopressin receptor inhibitor ) gtt started by Material Dispatcher cont to monitor lytes pt's mental status improved markedly after correction of Hyponatremia follow lytes closely pt will be continued to be monitor in ICU METASTATIC PANCREATIC MASS, NEW DIAGNOSIS - noted on CT abdomen/pelvis this Admission - new diagnosis with likely hepatic and lung mets previous USG of abdomen on 06/01/16 for abdominal discomfort noted normal liver parenchyma -no gall bladder mass noted pancreas could not be visualized due to overlying bowel loop/gas CT ABDOMEN /PELVIS WITH IV CONTRAST : 07/05/16 --large heterogeneous and ill-defined mass lesion measuring up to at least 4.5 cm which likely arises from the uncinate process of the pancreas. The posterior to the superior mesenteric artery which is partially encased, and abnormal soft tissue tracks inferiorly along the mesentery. This should be considered a pancreatic neoplasm until proven otherwise. -Multifocal hepatic metastatic disease is again noted. -- Enlarged gastrohepatic lymph nodes likely represent metastatic disease. A peritoneal implant is also identified. - irregular subpleural opacities present at both lung bases -pleural-based metastatic lesions or possibly the sequelae of pulmonary infarcts. -appreciate input form GI , plan for out pt EUS in 2-3 and biopsy for definitive diagnosis -if pt;s condition improves enough to be able to have anesthesia for the procedure and family still willing for the biopsy -Heme onc consult requested -extremely poor prognosis with wide spread metastatic pancreatic CA -appreciate input -very poor prognosis with aggressive metastatic pancreatic CA with wide spread mets in past 3-4 months -vascular consult was requested for SMA stenosis /mass invasion General surgery consult recommend conservative management -pain control no evidence of bowel ischemia /bowel obstruction very poor prognosis -palliative care cosulted DIVERTICULITIS OF DESCENDING COLON - mild acute descending colon diverticulitis noted on CT - with persistent leukocytosis-repeat cultures ordered - On IV Zosyn -need total 10 days of tx can be transitioned to PO Cipro /Flagyl once clinically better /prior to discharge -GI eval appreciated DVT PROPHYLAXIS high risk for DVT with metastatic ca - SQ Lovenox CODE STATUS DNR/DNI - DISPOSITION continue to monitor in ICU for severe Hyponatremia Vital Signs: Date Time Temp Pulse Resp B/P (MAP) Pulse Ox O2 Delivery O2 Flow Rate FiO2 07/09/16 20:19 101 21 143/106 (118) 98 Room Air 07/09/16 20:02 37.0 98 18 131/69 (89) 98 Room Air 07/09/16 20:00 Room Air 07/09/16 19:02 96 17 104/68 (80) 98 Room Air 07/09/16 18:01 90 19 119/65 (83) 100 Room Air 07/09/16 17:01 100 21 115/65 (82) 100 Room Air 07/09/16 16:02 36.9 94 16 109/57 (74) 100 Room Air 07/09/16 16:00 Room Air 07/09/16 15:01 98 16 109/61 (77) 100 Room Air 07/09/16 14:02 86 20 119/70 (86) 100 Room Air 07/09/16 13:01 93 16 114/57 (76) 100 Room Air 07/09/16 12:02 97 19 103/60 (74) 100 Room Air 07/09/16 12:00 Room Air 07/09/16 11:01 90 17 107/54 (71) 100 Room Air 07/09/16 10:02 90 19 95/48 (64) 100 Room Air 07/09/16 08:01 36.8 103 16 110/54 (72) 100 Room Air 07/09/16 08:00 Room Air 07/09/16 07:01 93 17 112/62 (79) 100 Room Air 07/09/16 05:01 100 19 116/68 (84) 100 Room Air 07/09/16 04:01 36.8 100 25 113/66 (82) 100 Room Air 07/09/16 04:00 Room Air 07/09/16 03:02 103 26 109/61 (77) 100 Room Air 07/09/16 02:01 96 21 114/71 (85) 100 Room Air 07/09/16 01:01 97 21 108/63 (78) 100 Room Air 07/09/16 00:01 Room Air 07/09/16 00:01 36.6 99 17 99/57 (71) 100 Room Air 07/08/16 23:01 102 23 112/68 (83) 100 Room Air 07/08/16 22:02 98 16 109/58 (75) 100 Room Air 07/08/16 21:01 89 16 96/57 (70) 100 Room Air Lab Results: Results Past 24 Hours Test 07/08/16 23:40 07/09/16 05:00 07/09/16 07:54 07/09/16 10:03 Range/Units Sodium Level 124 128 126 128 136-145 mmol/L Potassium Level 3.5 3.2 3.7 4.0 3.5-5.1 mmol/L Chloride Level 92 97 94 96 98-107 mmol/L Carbon Dioxide Level 22 21 22 24 21-32 mmol/L Anion Gap 10.0 10.0 10.0 8.0 3-11 mmol/L Blood Urea Nitrogen 10 7 7 7 7-18 mg/dl Creatinine 0.66 0.55 0.73 0.73 0.60-1.40 mg/dl Est Creatinine Clear Calc Drug Dose 64.0 76.8 56.5 56.5 ml/min Estimated GFR () 102.9 110.9 98.7 98.7 Estimated GFR (Non- 88.8 95.7 85.2 85.2 BUN/Creatinine Ratio 15.6 13.4 8.9 9.8 10-20 Random Glucose 89 84 114 107 70-99 mg/dl Calcium Level 7.3 6.9 8.3 7.5 8.5-10.1 mg/dl White Blood Count 8.50 4.8-10.8 K/uL Red Blood Count 2.42 4.7-6.1 M/uL Hemoglobin 7.8 14.0-18.0 g/dL Hematocrit 21.2 42-52 % Mean Corpuscular Volume 87.6 80-100 fL Mean Corpuscular Hemoglobin 32.2 25-34 pg Mean Corpuscular Hemoglobin Concent 36.8 32-36 g/dl Platelet Count 184 130-400 K/uL Mean Platelet Volume 8.9 7.4-10.4 fL Neutrophils (%) (Auto) 80.6 % Lymphocytes (%) (Auto) 9.2 % Monocytes (%) (Auto) 8.0 % Eosinophils (%) (Auto) 1.5 % Basophils (%) (Auto) 0.2 % Neutrophils # (Auto) 6.85 1.4-6.5 K/uL Lymphocytes # (Auto) 0.78 1.2-3.4 K/uL Monocytes # (Auto) 0.68 0.11-0.59 K/uL Eosinophils # (Auto) 0.13 0-0.5 K/uL Basophils # (Auto) 0.02 0-0.2 K/uL RDW Standard Deviation 43.4 36.4-46.3 fL RDW Coefficient of Variation 13.5 11.5-14.5 % Immature Granulocyte % (Auto) 0.5 % Immature Granulocyte # (Auto) 0.04 0.00-0.02 K/uL Red Blood Cell Morphology Unremarkable Magnesium Level 1.8 1.8-2.4 mg/dl Triglycerides Level 66 0-150 mg/dl Cholesterol Level 103 0-200 mg/dl HDL Cholesterol 59 mg/dl LDL Cholesterol, Calculated 31 mg/dl VLDL Cholesterol, Calculated 13 mg/dl Cholesterol/HDL Ratio 1.7 Test 07/09/16 13:06 07/09/16 16:14 07/09/16 16:30 07/09/16 20:00 Range/Units Hemoglobin 8.2 8.2 14.0-18.0 g/dL Hematocrit 22.1 22.3 42-52 % Sodium Level 131 133 133 136-145 mmol/L Potassium Level 3.9 4.0 3.9 3.5-5.1 mmol/L Chloride Level 99 101 100 98-107 mmol/L Carbon Dioxide Level 24 25 23 21-32 mmol/L Anion Gap 8.0 7.0 10.0 3-11 mmol/L Blood Urea Nitrogen 7 8 9 7-18 mg/dl Creatinine 0.89 0.91 0.90 0.60-1.40 mg/dl Est Creatinine Clear Calc Drug Dose 46.3 45.3 45.8 ml/min Estimated GFR () 91.0 89.4 90.6 Estimated GFR (Non- 78.5 77.1 78.2 BUN/Creatinine Ratio 7.9 8.4 10.0 10-20 Random Glucose 117 101 110 70-99 mg/dl Calcium Level 7.4 7.5 8.5-10.1 mg/dl Phosphorus Level 1.7 1.7 2.5-4.9 mg/dl Magnesium Level 2.5 1.8-2.4 mg/dl
[2016-07-09 21:51] LABS: CALCIUM 7.6 mg/dl (8.5-10.1)
[2016-07-10] VITALS (19 sets, daily range): BP systolic 118–161; BP diastolic 62–98; PULSE 95–118; TEMP 36.7–37; O2SAT 92–98
[2016-07-10 00:26] LABS: BUN/CREATININE RATIO 10.8 (10-20); CALCIUM 7.6 mg/dl (8.5-10.1); CREATININE 0.73 mg/dl (0.60-1.40); POTASSIUM 3.8 mmol/L (3.5-5.1)
[2016-07-10 05:14] LABS: BASO % 0.4 %; BASO ABS # 0.03 K/uL (0-0.2); HEMATOCRIT 22.8 % (42-52); IG% 0.5 %; LYMPH % 10.5 %; LYMPH ABS # 0.89 K/uL (1.2-3.4); MEAN CELL VOLUME 88.4 fL (80-100); MEAN CORPUSCULAR HEMOGLOBIN 31.8 pg (25-34); MEAN PLATELET VOLUME 8.6 fL (7.4-10.4); MONO % 7.2 %; NEUT % 79.4 %; PLATELET COUNT 214 K/uL (130-400); RED BLOOD COUNT 2.58 M/uL (4.7-6.1); WHITE BLOOD COUNT 8.49 K/uL (4.8-10.8)
[2016-07-10 05:36] LABS: COMPLETE YES
[2016-07-10 05:41] LABS: BUN/CREATININE RATIO 11.3 (10-20); CALCIUM 7.9 mg/dl (8.5-10.1); CREATININE 0.63 mg/dl (0.60-1.40); MAGNESIUM 2.2 mg/dl (1.8-2.4); POTASSIUM 3.4 mmol/L (3.5-5.1)
[2016-07-10] MEDS: FLUTICASONE PROPIONATE NA SPR 16 GM BTL SCH (09:16)
[2016-07-10] MEDS: PANTOprazole SOD 40 MG TAB PO SCH (09:16)
[2016-07-10] MEDS ORDERED: DEXTROSE IV SCH (09:50)
[2016-07-10] MEDS ORDERED: CONIVAPTAN IV SCH (09:50)
--- NOTE | 2016-07-10 10:40 | Critical Care Progress Note ---
Critical Care Progress Note Date of Service Jul 10, 2016. ICU Day ICU Day Number: [address] Murillo Subjective Mr Chaudhari felt well today, denying any symptoms. He ate breakfast well. He denies any pain, constipation, nausea, vomiting. He does not remember Sunday, and is eager to go home. His family came this morning - including his , son, and daughter. Prior to this, our team was told the pt was unaware of his terminal diagnosis of metastatic pancreatic cancer. Dr Murillo and I discussed with the family ( outside the room) that the patient should be informed of his diagnosis, and they agreed. They reported their goals were to keep him comfortable, and that they thought ultimately he would want to be at home. We briefly discussed hospice, as he would be an appropriate candidate. They confirmed he would be a DNR/DNI. Dr Murillo informed the patient, who reported he had a brother who passed from pancreatic cancer. He asked what would happen next, and Dr Murillo discussed how our team would discuss the plan with oncology and Palliative Medicine again , and formulate a plan for the future. Objective General : Awake, alert, cachectic Head: normocephalic, other (laceration left forehead with suture) Neck: normal range of motion, other (R IJ CVC) Respiratory: breath sounds normal, clear to auscultation Cardiovascular: regular rate/rhythm, normal S1S2 Abdomen: no masses,nontender Upper Extremities: other (no Clubbing cyanosis or edema ) Lower Extremities: other (no Clubbing cyanosis or edema ) Pulses: carotid (R) (2+), carotid (L) (2+), radial (R) (2+), radial (L) (2+), dorsalis pedis (R) (2+), dorsalis pedis (L) (2+) Neuro: no focal motor deficits. Motor power 5/5 symmetrical A A Ox3 Current SOFA Score SOFA Score Response (Comments) Value Platelets (x10) > 150 0 Bilirubin (mg/dL) < 1.2 0 Rosemarie Coma Score 15 0 Level of Hypotension No Hypotension 0 Creatinine (mg/dL) < 1.2 0 Total 0 Previous SOFA Scores 2 Assessment & Plan Resident Physician Supervision Note: I was present with Dr. Enriquez during the history and exam. I discussed the case with the resident and agree with the findings and plan as documented in the note. Any exceptions or clarifications are listed here: We discussed the treatment of SIADH. Will try and simplify with fluid restriction/sodium chloride/loop diuretic. Dr. Enriquez talked with the family about his diagnosis and discussed outlook. A conservative and palliative approach is recommended. ] Documented By: Johnny Murillo Mr Chaudhari is an 85 yo M with newly-diagnosed metastatic pancreatic cancer, contributing to SIADH and now-resolved hyponatremia and altered mental status. He now knows and understands his diagnosis is terminal. Neurologic AMS now resolved, likely due to the hyponatremia Lovenox prophylaxis started after CT scan negative Respiratory Stable saturating 96-97% on RA Continue oxygen PRN CVS Lipitor and Aspirin not indicated currently GI Diet: Heart Healthy Renal Na 134 from previous increase and use of conivaptan, would require PO Tolvaptan if going to continue this (Will discuss with Dr Wilcox) ID Zosyn stopped DVT Daily lovenox CXR shows no worsening of the mediastinal hematoma. Pancreatic cancer is high risk for DVT Lines Central line R IJ placed - Will discuss removing it today Loree present Family meeting as per subjective section. Consults & Procedures Consultants: nephrology oncology GI surgery cardiothoracic surgery Procedures: R IJ TL CVC Data Medications: Current Inpatient Medications Medications (Trade) Dose Ordered Sig/El Route Start Time Stop Time Status Last Admin Dose Admin Enoxaparin Sodium (Lovenox Inj) 40 mg Q24H SC 07/05/16 21:00 08/04/16 20:59 Future hold 07/09/16 20:09 40 MG Acetaminophen (Tylenol Tab) 650 mg Q4H PRN PO 07/05/16 15:45 08/04/16 15:44 Ondansetron HCl (Zofran Inj) 4 mg Q6H PRN IV 07/05/16 15:45 08/04/16 15:44 Aspirin (Ecotrin Tab) 81 mg DAILY PO 07/06/16 09:00 08/05/16 08:59 Future Hold 07/06/16 09:17 81 MG Ioversol (Optiray 320) 125 ml UD PRN IV 07/06/16 11:45 07/10/16 11:44 Fluticasone Propionate (Flonase Nasal [place]) 1 sprays DAILY NA 07/08/16 09:00 08/07/16 08:59 07/10/16 09:16 1 SPRAYS Tolvaptan (Samsca Tab) 15 mg QAM PO 07/09/16 09:00 08/08/16 08:59 Future Hold Pantoprazole Sodium (Protonix Tab) 40 mg QAM PO 07/10/16 09:00 08/09/16 08:59 07/10/16 09:16 40 MG Conivaptan/ Dextrose 100 ml @ 4.2 mls/hr [id number] IV 07/10/16 09:50 07/12/16 09:49 Vital Signs: Date Time Temp Pulse Resp B/P (MAP) Pulse Ox O2 Delivery O2 Flow Rate FiO2 07/10/16 08:02 37.0 106 19 129/67 (87) 96 Room Air 07/10/16 08:00 Room Air 07/10/16 07:02 102 19 132/75 (94) 98 Room Air 07/10/16 06:02 100 19 144/75 (98) 93 Room Air 07/10/16 05:02 96 17 152/80 (104) 97 Room Air 07/10/16 04:02 37.0 105 18 161/93 (115) 97 Room Air 07/10/16 04:00 Room Air 07/10/16 03:02 104 21 129/77 (94) 96 Room Air 07/10/16 02:02 104 18 126/66 (86) 96 Room Air 07/10/16 01:02 103 16 149/80 (103) 93 Room Air 07/10/16 00:02 36.8 96 8 131/62 (85) 95 Room Air 07/10/16 00:01 Room Air 07/09/16 23:02 98 24 120/60 (80) 97 Room Air 07/09/16 22:54 98 17 146/83 (104) 95 Room Air 07/09/16 22:02 101 19 146/83 (104) 96 Room Air 07/09/16 21:02 96 17 142/70 (94) 96 Room Air 07/09/16 20:19 101 21 143/106 (118) 98 Room Air 07/09/16 20:02 37.0 98 18 131/69 (89) 98 Room Air 07/09/16 20:00 Room Air 07/09/16 19:02 96 17 104/68 (80) 98 Room Air 07/09/16 18:01 90 19 119/65 (83) 100 Room Air 07/09/16 17:01 100 21 115/65 (82) 100 Room Air 07/09/16 16:02 36.9 94 16 109/57 (74) 100 Room Air 07/09/16 16:00 Room Air 07/09/16 15:01 98 16 109/61 (77) 100 Room Air 07/09/16 14:02 86 20 119/70 (86) 100 Room Air 07/09/16 13:01 93 16 114/57 (76) 100 Room Air 07/09/16 12:02 97 19 103/60 (74) 100 Room Air 07/09/16 12:00 Room Air 07/09/16 11:01 90 17 107/54 (71) 100 Room Air Laboratory Results: Last 24 Hours Test 07/09/16 13:06 07/09/16 16:14 07/09/16 16:30 07/09/16 20:00 Hemoglobin 8.2 g/dL 8.2 g/dL Hematocrit 22.1 % 22.3 % Sodium Level 131 mmol/L 133 mmol/L 133 mmol/L Potassium Level 3.9 mmol/L 4.0 mmol/L 3.9 mmol/L Chloride Level 99 mmol/L 101 mmol/L 100 mmol/L Carbon Dioxide Level 24 mmol/L 25 mmol/L 23 mmol/L Anion Gap 8.0 mmol/L 7.0 mmol/L 10.0 mmol/L Blood Urea Nitrogen 7 mg/dl 8 mg/dl 9 mg/dl Creatinine 0.89 mg/dl 0.91 mg/dl 0.90 mg/dl Est Creatinine Clear Calc Drug Dose 46.3 ml/min 45.3 ml/min 45.8 ml/min Estimated GFR () 91.0 89.4 90.6 Estimated GFR (Non- 78.5 77.1 78.2 BUN/Creatinine Ratio 7.9 8.4 10.0 Random Glucose 117 mg/dl 101 mg/dl 110 mg/dl Calcium Level 7.4 mg/dl 7.5 mg/dl 7.6 mg/dl Phosphorus Level 1.7 mg/dl 1.7 mg/dl Magnesium Level 2.5 mg/dl Test 07/09/16 23:56 07/10/16 04:35 Sodium Level 136 mmol/L 134 mmol/L Potassium Level 3.8 mmol/L 3.4 mmol/L Chloride Level 101 mmol/L 100 mmol/L Carbon Dioxide Level 26 mmol/L 25 mmol/L Anion Gap 9.0 mmol/L 9.0 mmol/L Blood Urea Nitrogen 8 mg/dl 7 mg/dl Creatinine 0.73 mg/dl 0.63 mg/dl Est Creatinine Clear Calc Drug Dose 56.5 ml/min 65.4 ml/min Estimated GFR () 98.7 104.9 Estimated GFR (Non- 85.2 90.5 BUN/Creatinine Ratio 10.8 11.3 Random Glucose 97 mg/dl 94 mg/dl Calcium Level 7.6 mg/dl 7.9 mg/dl White Blood Count 8.49 K/uL Red Blood Count 2.58 M/uL Hemoglobin 8.2 g/dL Hematocrit 22.8 % Mean Corpuscular Volume 88.4 fL Mean Corpuscular Hemoglobin 31.8 pg Mean Corpuscular Hemoglobin Concent 36.0 g/dl Platelet Count 214 K/uL Mean Platelet Volume 8.6 fL Neutrophils (%) (Auto) 79.4 % Lymphocytes (%) (Auto) 10.5 % Monocytes (%) (Auto) 7.2 % Eosinophils (%) (Auto) 2.0 % Basophils (%) (Auto) 0.4 % Neutrophils # (Auto) 6.75 K/uL Lymphocytes # (Auto) 0.89 K/uL Monocytes # (Auto) 0.61 K/uL Eosinophils # (Auto) 0.17 K/uL Basophils # (Auto) 0.03 K/uL RDW Standard Deviation 45.5 fL RDW Coefficient of Variation 14.0 % Immature Granulocyte % (Auto) 0.5 % Immature Granulocyte # (Auto) 0.04 K/uL Red Blood Cell Morphology Unremarkable Phosphorus Level 2.8 mg/dl Magnesium Level 2.2 mg/dl Resident Tracking Resident Involvement: Resident Care Provided Care Provided: Adult [facility]
[2016-07-10 11:14] LABS: BUN/CREATININE RATIO 12.5 (10-20); CREATININE 0.56 mg/dl (0.60-1.40); MAGNESIUM 2.1 mg/dl (1.8-2.4); POTASSIUM 3.5 mmol/L (3.5-5.1)
--- NOTE | 2016-07-10 12:59 | Clinical Documentation Query ---
NATASHA Myers : CLINICAL DOCUMENTATION QUERY Mr Chaudhari is an 85 year old male with newly-diagnosed metastatic pancreatic cancer, contributing to SIADH and now-resolved hyponatremia and altered mental status. As appropriate, consider documentation as suggested below as this impacts DRG assignment. Thank you. In your clinical opinion is this patient being managed for: ( x ) Metabolic encephalopathy secondary to hyponatremia, resolved ( ) Other explanation of clinical findings (Please Explain) ( ) Unable to determine (Please Define) ( ) Need to Discuss ( ) Not Agree The medical record reflects the following clinical findings, treatment, and risk factors. Clinical Indicators: As above Treatment: Hypertonic saline, CVC placement, ICU standard of care, awning frame maker consultation, serial serum chemistries Risk Factors: Hyponatremia Please clarify and document your clinical opinion in the progress notes and discharge summary. Terms such as "probable", "suspected", "likely", "questionable", "possible", or "still to be ruled out" are acceptable. IF IN AGREEMENT, YOU MUST DOCUMENT ABOVE DIAGNOSTIC STATEMENT IN DAILY PROGRESS NOTES AND DISCHARGE SUMMARY. This document is not part of the patient's record. Thank You, Bahrath Mitchell, RN [phone]
--- NOTE | 2016-07-10 13:00 | Clinical Documentation Query ---
NAFISA Ramirez : CLINICAL DOCUMENTATION QUERY Mr Chaudhari is an 85 year old male with newly-diagnosed metastatic pancreatic cancer, contributing to SIADH and now-resolved hyponatremia and altered mental status. As appropriate, consider documentation as suggested below as this impacts DRG assignment. Thank you. In your clinical opinion is this patient being managed for: ( x ) Metabolic encephalopathy secondary to hyponatremia, resolved ( ) Other explanation of clinical findings (Please Explain) ( ) Unable to determine (Please Define) ( ) Need to Discuss ( ) Not Agree The medical record reflects the following clinical findings, treatment, and risk factors. Clinical Indicators: As above Treatment: Hypertonic saline, CVC placement, ICU standard of care, stave inspector consultation, serial serum chemistries Risk Factors: Hyponatremia Please clarify and document your clinical opinion in the progress notes and discharge summary. Terms such as "probable", "suspected", "likely", "questionable", "possible", or "still to be ruled out" are acceptable. IF IN AGREEMENT, YOU MUST DOCUMENT ABOVE DIAGNOSTIC STATEMENT IN DAILY PROGRESS NOTES AND DISCHARGE SUMMARY. This document is not part of the patient's record. Thank You, Bharath Mitchell, RN [phone]
[2016-07-10] MEDS: SODIUM CHLORIDE 1 GM TAB PO SCH ×2 (14:27→20:50)
--- NOTE | 2016-07-10 15:55 | Hematology/Oncology Prog Note ---
Hematology/Onc Progress Note Date of Service Jul 10, 2016. Diagnoses See below Medications Medications Administered Medications (Trade) Dose Ordered Sig/El Route Start Time Stop Time Status Last Admin Dose Admin Sodium Chloride 1,000 ml @ 999 mls/hr Q1H1M STAT IV 07/05/16 13:02 07/05/16 14:02 DC 07/05/16 13:12 999 MLS/HR Piperacillin Sod/ Tazobactam Sod (Zosyn Iv) 3.375 gm NOW STAT IV 07/05/16 15:11 07/05/16 15:12 DC 07/05/16 15:29 3.375 GM Enoxaparin Sodium (Lovenox Inj) 40 mg Q24H SC 07/05/16 21:00 08/04/16 20:59 Future hold 07/09/16 20:09 40 MG Sodium Chloride 1,000 ml @ 75 mls/hr [id number] IV 07/05/16 17:15 07/07/16 02:26 DC 07/06/16 05:45 80 MLS/HR Aspirin (Ecotrin Tab) 81 mg DAILY PO 07/06/16 09:00 08/05/16 08:59 Future Hold 07/06/16 09:17 81 MG Pantoprazole Sodium (Protonix Tab) 40 mg DAILY PO 07/06/16 09:00 07/07/16 12:08 DC 07/06/16 09:17 40 MG Pravastatin Sodium (Pravachol Tab) 20 mg DAILY PO 07/06/16 09:00 07/06/16 18:58 DC 07/06/16 09:17 20 MG Ranitidine HCl (zANTac TAB) 300 mg HS PO 07/05/16 21:00 07/07/16 12:08 DC 07/06/16 20:45 300 MG Piperacillin Sod/ Tazobactam Sod 3.375 gm/Dextrose 115 ml @ 28.75 mls/ hr Q8H IV 07/06/16 00:00 07/08/16 18:00 DC 07/08/16 16:39 28.75 MLS/HR Lidocaine/ Epinephrine (Xylocaine/Epine 1% Inj) 20 ml STK-MED ONCE .ROUTE 07/07/16 07:09 07/07/16 07:10 DC 07/07/16 07:09 20 ML Lorazepam (Ativan Inj) 2 mg STK-MED ONCE .ROUTE 07/07/16 07:56 07/07/16 07:57 DC 07/07/16 07:56 0.5 MG Sodium Chloride 50 ml/Empty Bag 50 ml @ 100 mls/hr NOW ONCE IV 07/07/16 10:15 07/07/16 10:44 DC 07/07/16 10:15 100 MLS/HR Midazolam HCl (Versed Inj) 2 mg STK-MED ONCE .ROUTE 07/07/16 11:00 07/07/16 11:01 DC 07/07/16 11:00 2 MG Pantoprazole Sodium 40 mg/ Syringe 10 ml @ 5 mls/min DAILY@11 IV 07/08/16 11:00 07/10/16 08:24 DC 07/09/16 14:04 5 MLS/MIN Magnesium Sulfate 1 gm/Prmx 100 ml @ 100 mls/hr Q1H IV 07/07/16 13:00 07/07/16 15:59 DC 07/07/16 15:39 100 MLS/HR Potassium Chloride 10 meq/ Prmx 100 ml @ 100 mls/hr Q1H IV 07/07/16 13:00 07/07/16 16:59 DC 07/07/16 18:26 100 MLS/HR Sodium Chloride 500 ml @ 25 mls/hr Q20H IV 07/07/16 14:00 07/08/16 00:55 DC 07/07/16 21:25 25 MLS/HR Fluticasone Propionate (Flonase Nasal [place]) 1 sprays DAILY NA 07/08/16 09:00 08/07/16 08:59 07/10/16 09:16 1 SPRAYS Sodium Chloride 500 ml @ 35 mls/hr [id number] IV 07/08/16 03:45 07/09/16 18:37 DC 07/08/16 20:16 30 MLS/HR Piperacillin Sod/ Tazobactam Sod 4.5 gm/Dextrose 120 ml @ 30 mls/hr Q8H IV 07/09/16 00:00 07/09/16 11:53 DC 07/09/16 08:04 30 MLS/HR Potassium Chloride ([place]nn Ciel Elix) 40 meq NOW STAT PO 07/09/16 06:17 07/09/16 06:20 DC 07/09/16 06:32 40 MEQ Magnesium Sulfate 1 gm/Prmx 100 ml @ 100 mls/hr NOW STAT IV 07/09/16 06:20 07/09/16 07:19 DC 07/09/16 06:33 100 MLS/HR Magnesium Sulfate 1 gm/Prmx 100 ml @ 100 mls/hr Q1H IV 07/09/16 06:34 07/09/16 09:33 DC 07/09/16 10:12 100 MLS/HR Calcium Gluconate 2000 mg/Sodium Chloride 70 ml @ 240 mls/hr NOW STAT IV 07/09/16 06:23 07/09/16 06:40 DC 07/09/16 07:02 240 MLS/HR Potassium Chloride ([place]nn Ciel Elix) 20 meq TODAY@0730 PO 07/09/16 07:30 07/09/16 07:31 DC 07/09/16 08:20 20 MEQ Conivaptan/ Dextrose 100 ml @ 4.2 mls/hr [id number] IV 07/09/16 10:00 07/10/16 09:49 DC 07/09/16 10:12 4.2 MLS/HR Potassium/ Phosphorus/Sodium (Phospha 250 Neutral 155-852-130 Mg) 2 tab Q6H PO 07/09/16 17:30 07/09/16 23:59 DC 07/09/16 23:24 2 TAB Sodium Phosphate 21 mmol/Sodium Chloride 507 ml @ 169 mls/hr TODAY@1800 IV 07/09/16 18:00 07/09/16 23:59 DC 07/09/16 18:13 169 MLS/HR Pantoprazole Sodium (Protonix Tab) 40 mg QAM PO 07/10/16 09:00 08/09/16 08:59 07/10/16 09:16 40 MG Sodium Chloride (Sodium Chloride Tab) 1 gm TID PO 07/10/16 14:00 08/09/16 13:59 07/10/16 14:27 1 GM Subjective Mr. Chaudhari reports feeling overall fine today. He states he was informed today that he has cancer. He is unsure if he wants to undergo systemic treatment for this at this time, still discussing with his . He has no respiratory complaints. He has no headache. He denies GI complaints currently. He states he has no bleeding from any sites. Review of Systems: Respiratory: + see HPI Abdomen: + see HPI Vital Signs Vital Signs Past 12 Hours Date Time Temp Pulse Resp B/P (MAP) Pulse Ox O2 Delivery O2 Flow Rate FiO2 07/10/16 13:02 102 18 127/68 (87) 97 Room Air 07/10/16 12:02 36.9 99 17 118/65 (82) 93 Room Air 07/10/16 12:00 Room Air 07/10/16 11:02 95 19 141/98 (112) 97 Room Air 07/10/16 10:33 100 14 132/73 (92) 96 07/10/16 08:02 37.0 106 19 129/67 (87) 96 Room Air 07/10/16 08:00 Room Air 07/10/16 07:02 102 19 132/75 (94) 98 Room Air 07/10/16 06:02 100 19 144/75 (98) 93 Room Air 07/10/16 05:02 96 17 152/80 (104) 97 Room Air 07/10/16 04:02 37.0 105 18 161/93 (115) 97 Room Air 07/10/16 04:00 Room Air Physical Exam Constitutional: General Apperance: too thin Level of Distress: NAD Psychiatric: Mental Status: confused Memory: recent memory abnormal Lungs: Respiratory Effort: no dyspnea Auscuitation: breath sounds normal Cardiovascular: Heart Auscultation: RRR Abdomen: Bowel Sounds: normal Inspection & Palpation: non-distended, no tenderness, guarding & rebound Laboratory 07/07/16 16:01 07/07/16 20:03 07/08/16 07:10 07/08/16 12:13 07/09/16 05:00 Red Blood Count 2.42, Mean Corpuscular Volume 87.6, Mean Corpuscular Hemoglobin 32.2, Mean Corpuscular Hemoglobin Concent 36.8, Mean Platelet Volume 8.9, Neutrophils (%) (Auto) 80.6, Lymphocytes (%) (Auto) 9.2, Monocytes (%) (Auto) 8.0, Eosinophils (%) (Auto) 1.5, Basophils (%) (Auto) 0.2, Neutrophils # (Auto) 6.85, Lymphocytes # (Auto) 0.78, Monocytes # (Auto) 0.68, Eosinophils # (Auto) 0.13, Basophils # (Auto) 0.02 07/09/16 13:06 07/09/16 16:14 07/10/16 04:35 Red Blood Count 2.58, Mean Corpuscular Volume 88.4, Mean Corpuscular Hemoglobin 31.8, Mean Corpuscular Hemoglobin Concent 36.0, Mean Platelet Volume 8.6, Neutrophils (%) (Auto) 79.4, Lymphocytes (%) (Auto) 10.5, Monocytes (%) (Auto) 7.2, Eosinophils (%) (Auto) 2.0, Basophils (%) (Auto) 0.4, Neutrophils # (Auto) 6.75, Lymphocytes # (Auto) 0.89, Monocytes # (Auto) 0.61, Eosinophils # (Auto) 0.17, Basophils # (Auto) 0.03 07/07/16 16:01 07/07/16 18:11 07/07/16 20:03 07/07/16 23:56 07/08/16 02:54 07/08/16 07:10 07/08/16 12:13 07/08/16 15:35 07/08/16 20:13 07/08/16 23:40 07/09/16 05:00 07/09/16 07:54 07/09/16 10:03 07/09/16 13:06 07/09/16 16:30 07/09/16 20:00 07/09/16 23:56 07/10/16 04:35 07/10/16 10:32 Test 07/07/16 16:01 07/07/16 20:03 07/07/16 20:13 07/07/16 23:56 Anion Gap 11.0 mmol/L (3-11) 9.0 mmol/L (3-11) 10.0 mmol/L (3-11) Est Creatinine Clear Calc Drug Dose 54.8 ml/min 60.8 ml/min 61.6 ml/min Estimated GFR () 94.1 98.2 98.7 Estimated GFR (Non- 81.2 84.7 85.2 BUN/Creatinine Ratio 10.6 (10-20) 12.7 (10-20) 13.5 (10-20) Calcium Level 8.0 mg/dl (8.5-10.1) 7.3 mg/dl (8.5-10.1) 7.6 mg/dl (8.5-10.1) Magnesium Level 2.8 mg/dl (1.8-2.4) Bedside Glucose 135 mg/dl (70-99) Test 07/08/16 01:49 07/08/16 02:54 07/08/16 07:10 07/08/16 12:13 Bedside Glucose 114 mg/dl (70-99) Anion Gap 10.0 mmol/L (3-11) 10.0 mmol/L (3-11) 10.0 mmol/L (3-11) Est Creatinine Clear Calc Drug Dose 59.2 ml/min 64.0 ml/min 52.1 ml/min Estimated GFR () 97.1 102.9 94.6 Estimated GFR (Non- 83.8 88.8 81.6 BUN/Creatinine Ratio 12.7 (10-20) 13.9 (10-20) 11.5 (10-20) Calcium Level 7.5 mg/dl (8.5-10.1) 7.4 mg/dl (8.5-10.1) 7.5 mg/dl (8.5-10.1) Magnesium Level 2.4 mg/dl (1.8-2.4) Test 07/08/16 15:35 07/08/16 20:13 07/08/16 23:40 07/09/16 05:00 Anion Gap 11.0 mmol/L (3-11) 9.0 mmol/L (3-11) 10.0 mmol/L (3-11) 10.0 mmol/L (3-11) Est Creatinine Clear Calc Drug Dose 50.9 ml/min 53.5 ml/min 64.0 ml/min 76.8 ml/min Estimated GFR () 93.6 95.6 102.9 110.9 Estimated GFR (Non- 80.8 82.5 88.8 95.7 BUN/Creatinine Ratio 13.0 (10-20) 13.6 (10-20) 15.6 (10-20) 13.4 (10-20) Calcium Level 7.4 mg/dl (8.5-10.1) 7.2 mg/dl (8.5-10.1) 7.3 mg/dl (8.5-10.1) 6.9 mg/dl (8.5-10.1) White Blood Count 8.50 K/uL (4.8-10.8) Red Blood Count 2.42 M/uL (4.7-6.1) Hemoglobin 7.8 g/dL (14.0-18.0) Hematocrit 21.2 % (42-52) Mean Corpuscular Volume 87.6 fL (80-100) Mean Corpuscular Hemoglobin 32.2 pg (25-34) Mean Corpuscular Hemoglobin Concent 36.8 g/dl (32-36) Platelet Count 184 K/uL (130-400) Mean Platelet Volume 8.9 fL (7.4-10.4) Neutrophils (%) (Auto) 80.6 % Lymphocytes (%) (Auto) 9.2 % Monocytes (%) (Auto) 8.0 % Eosinophils (%) (Auto) 1.5 % Basophils (%) (Auto) 0.2 % Neutrophils # (Auto) 6.85 K/uL (1.4-6.5) Lymphocytes # (Auto) 0.78 K/uL (1.2-3.4) Monocytes # (Auto) 0.68 K/uL (0.11-0.59) Eosinophils # (Auto) 0.13 K/uL (0-0.5) Basophils # (Auto) 0.02 K/uL (0-0.2) RDW Standard Deviation 43.4 fL (36.4-46.3) RDW Coefficient of Variation 13.5 % (11.5-14.5) Immature Granulocyte % (Auto) 0.5 % Immature Granulocyte # (Auto) 0.04 K/uL (0.00-0.02) Red Blood Cell Morphology Unremarkable Magnesium Level 1.8 mg/dl (1.8-2.4) Triglycerides Level 66 mg/dl (0-150) Cholesterol Level 103 mg/dl (0-200) HDL Cholesterol 59 mg/dl LDL Cholesterol, Calculated 31 mg/dl VLDL Cholesterol, Calculated 13 mg/dl Cholesterol/HDL Ratio 1.7 Test 07/09/16 07:54 07/09/16 10:03 07/09/16 13:06 07/09/16 16:30 Anion Gap 10.0 mmol/L (3-11) 8.0 mmol/L (3-11) 8.0 mmol/L (3-11) 7.0 mmol/L (3-11) Est Creatinine Clear Calc Drug Dose 56.5 ml/min 56.5 ml/min 46.3 ml/min 45.3 ml/min Estimated GFR () 98.7 98.7 91.0 89.4 Estimated GFR (Non- 85.2 85.2 78.5 77.1 BUN/Creatinine Ratio 8.9 (10-20) 9.8 (10-20) 7.9 (10-20) 8.4 (10-20) Calcium Level 8.3 mg/dl (8.5-10.1) 7.5 mg/dl (8.5-10.1) 7.4 mg/dl (8.5-10.1) 7.5 mg/dl (8.5-10.1) Phosphorus Level 1.7 mg/dl (2.5-4.9) 1.7 mg/dl (2.5-4.9) Magnesium Level 2.5 mg/dl (1.8-2.4) Test 07/09/16 20:00 07/09/16 23:56 07/10/16 04:35 07/10/16 10:32 Anion Gap 10.0 mmol/L (3-11) 9.0 mmol/L (3-11) 9.0 mmol/L (3-11) 10.0 mmol/L (3-11) Est Creatinine Clear Calc Drug Dose 45.8 ml/min 56.5 ml/min 65.4 ml/min 81.5 ml/min Estimated GFR () 90.6 98.7 104.9 110.1 Estimated GFR (Non- 78.2 85.2 90.5 95.0 BUN/Creatinine Ratio 10.0 (10-20) 10.8 (10-20) 11.3 (10-20) 12.5 (10-20) Calcium Level 7.6 mg/dl (8.5-10.1) 7.6 mg/dl (8.5-10.1) 7.9 mg/dl (8.5-10.1) 8.0 mg/dl (8.5-10.1) White Blood Count 8.49 K/uL (4.8-10.8) Red Blood Count 2.58 M/uL (4.7-6.1) Hemoglobin 8.2 g/dL (14.0-18.0) Hematocrit 22.8 % (42-52) Mean Corpuscular Volume 88.4 fL (80-100) Mean Corpuscular Hemoglobin 31.8 pg (25-34) Mean Corpuscular Hemoglobin Concent 36.0 g/dl (32-36) Platelet Count 214 K/uL (130-400) Mean Platelet Volume 8.6 fL (7.4-10.4) Neutrophils (%) (Auto) 79.4 % Lymphocytes (%) (Auto) 10.5 % Monocytes (%) (Auto) 7.2 % Eosinophils (%) (Auto) 2.0 % Basophils (%) (Auto) 0.4 % Neutrophils # (Auto) 6.75 K/uL (1.4-6.5) Lymphocytes # (Auto) 0.89 K/uL (1.2-3.4) Monocytes # (Auto) 0.61 K/uL (0.11-0.59) Eosinophils # (Auto) 0.17 K/uL (0-0.5) Basophils # (Auto) 0.03 K/uL (0-0.2) RDW Standard Deviation 45.5 fL (36.4-46.3) RDW Coefficient of Variation 14.0 % (11.5-14.5) Immature Granulocyte % (Auto) 0.5 % Immature Granulocyte # (Auto) 0.04 K/uL (0.00-0.02) Red Blood Cell Morphology Unremarkable Phosphorus Level 2.8 mg/dl (2.5-4.9) Magnesium Level 2.2 mg/dl (1.8-2.4) 2.1 mg/dl (1.8-2.4) Assessment & Plan 1. Pancreatic mass, maximal 4.5 cm in dimension, with intra-abdominal adenopathy , liver and lung lesions suspicious for metastatic disease * CA 19-9 drawn during this hospitalization elevated into 2000 range c/w pancreatic primary * EUS is planned for outpatient per patient's preference, ?still necessary if patient declines systemic treatment ultimately * General surgery consulted with patient due to encasement of SMA to see if at critical point, no surgical intervention recommended at this time * Patient has poor performance status currently around 3 * Patient is deciding if he would like to proceed with systemic chemotherapy, leaning toward not having chemotherapy, still discussing with family * Palliative care was on board last week, but no family was at bedside to discuss plan of care and PC SLIP TENDER is off this week * Overall poor termite technician prognosis, patient seems to comprehend this 2. Generalized weakness * Likely multifactorial * Advanced malignancy * Hyponatremia * Anorexia, cachexia 3. S/p fall in hospital concurrent with exacerbation of hyponatremia * No intracranial hemorrhage * Patient has left sided orbital bruising 4. Hyponatremia * SIADH of malignancy less likely unless patient has an extrapulmonary small cell carcinoma * Correction per hospitalist team * Improved 5. Intrathoracic hematoma, iatrogenic, from central line placement * Monitoring H+H, roxi at high 7 range yesterday, now in 8 range Will continue to follow while patient is hospitalized. I performed history and physical examination of the patient. I have discussed the patient's case, impression and plan with Fanny Law PA-C. Her note reflects my findings and plan. Dr. Mike Nix Hem/Onc
[2016-07-10] MEDS ORDERED: LORAZEPAM 1 MG TAB SL PRN (16:30)
[2016-07-10] MEDS ORDERED: MoRPHine SULFATE 5 MG/0.25 ML UDP PO PRN (16:30)
[2016-07-10] MEDS: DEXTROSE IV SCH (16:33)
[2016-07-10] MEDS: CONIVAPTAN IV SCH (16:33)
[2016-07-10] MEDS: FUROSEMIDE 20 MG TAB PO SCH (16:36)
[2016-07-10] MEDS: ENOXAPARIN 40 MG/0.4 ML SYR SC SCH (20:50)
--- NOTE | 2016-07-10 21:58 | Progress Note ---
Internal Med Progress Note Date of Service: Jul 10, 2016. Provider Documentation: SUBJECTIVE: awake and alert offers no complain , no pain or discomfort understand that he has terminal illness OBJECTIVE: Vital Signs-as noted below Exam: General-awake and alert , no distress noted, conversing , HEENT : healed cut on left upper eye brow , suture in place , Lungs-diminished, Heart-regular S1/S2 Abdomen-soft, non tender Extremities-no lower ext edema Neuro-awake and alert , normal orientation , no focal neurological deficit Lab data as noted below. 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 lab work as out pt on 06/07/16 Na 135 - presented with Na 121 /syncope Na level had improved 123-125 with IV NSS pt had improved mental status on 07/06/16 evening -asking appropriate questions regarding his Ca diagnosis early AM 07/07/16 sustained a fall hitting his head became confused , disoriented Na level 115 post concussion appreciate input from Nephrology pt was transferred to ICU for close monitoring of hemodynamics/Rt IJ IV access placed for hypertonic 3% NSS infusion needs slow correction not more than 10 meq /24 hrs Na slowly improved to 131 3% saline D/avni Conivaptan ( vasopressin receptor inhibitor ) gtt started by Operation Specialist D/w central supply manager -aggressive metastatic ca with very poor prognosis pt and family understands and aware of the diagnosis stable to transfer to Medical floor Hyponatremia will be treated with Salt tab , fluid restrictions and Lasix no aggressive intervention or treatment will not provide any further benefit limit blood draw Central line D/avni CONFUSION /METABOLIC ENCEPHALOPATHY : due to hyponatremia electrolyte derangement mental status improved to baseline after correction of lytes METASTATIC PANCREATIC MASS, NEW DIAGNOSIS - noted on CT abdomen/pelvis this Admission - new diagnosis with likely hepatic and lung mets previous USG of abdomen on 06/01/16 for abdominal discomfort noted normal liver parenchyma -no gall bladder mass noted pancreas could not be visualized due to overlying bowel loop/gas CT ABDOMEN /PELVIS WITH IV CONTRAST : 07/05/16 --large heterogeneous and ill-defined mass lesion measuring up to at least 4.5 cm which likely arises from the uncinate process of the pancreas. The posterior to the superior mesenteric artery which is partially encased, and abnormal soft tissue tracks inferiorly along the mesentery. This should be considered a pancreatic neoplasm until proven otherwise. -Multifocal hepatic metastatic disease is again noted. -- Enlarged gastrohepatic lymph nodes likely represent metastatic disease. A peritoneal implant is also identified. - irregular subpleural opacities present at both lung bases -pleural-based metastatic lesions or possibly the sequelae of pulmonary infarcts. -appreciate input form GI , plan for out pt EUS in 2-3 and biopsy for definitive diagnosis -if pt;s condition improves enough to be able to have anesthesia for the procedure and family still willing for the biopsy -Heme onc consult requested -extremely poor prognosis with wide spread metastatic pancreatic CA -appreciate input -very poor prognosis with aggressive metastatic pancreatic CA with wide spread mets in past 3-4 months -vascular consult was requested for SMA stenosis /mass invasion General surgery consult recommend conservative management -pain control no evidence of bowel ischemia /bowel obstruction very poor prognosis -palliative care cosulted DIVERTICULITIS OF DESCENDING COLON - mild acute descending colon diverticulitis noted on CT - with persistent leukocytosis-repeat cultures ordered - On IV Zosyn -need total 10 days of tx can be transitioned to PO Cipro /Flagyl once clinically better /prior to discharge -GI eval appreciated DVT PROPHYLAXIS high risk for DVT with metastatic ca - SQ Lovenox CODE STATUS DNR/DNI - DISPOSITION stable to be transferred to Medical floor Vital Signs: Date Time Temp Pulse Resp B/P (MAP) Pulse Ox O2 Delivery O2 Flow Rate FiO2 07/10/16 18:34 36.7 99 20 135/85 (102) 96 Room Air 07/10/16 18:29 Room Air 07/10/16 17:52 36.9 95 18 96 07/10/16 16:02 36.9 95 18 146/82 (103) 96 Room Air 07/10/16 16:00 Room Air 07/10/16 15:32 118 17 130/72 (91) 97 Room Air 07/10/16 15:02 101 20 146/86 (106) 97 Room Air 07/10/16 14:02 95 23 134/70 (91) 92 Room Air 07/10/16 13:02 102 18 127/68 (87) 97 Room Air 07/10/16 12:02 36.9 99 17 118/65 (82) 93 Room Air 07/10/16 12:00 Room Air 07/10/16 11:02 95 19 141/98 (112) 97 Room Air 07/10/16 10:33 100 14 132/73 (92) 96 07/10/16 08:02 37.0 106 19 129/67 (87) 96 Room Air 07/10/16 08:00 Room Air 07/10/16 07:02 102 19 132/75 (94) 98 Room Air 07/10/16 06:02 100 19 144/75 (98) 93 Room Air 07/10/16 05:02 96 17 152/80 (104) 97 Room Air 07/10/16 04:02 37.0 105 18 161/93 (115) 97 Room Air 07/10/16 04:00 Room Air 07/10/16 03:02 104 21 129/77 (94) 96 Room Air 07/10/16 02:02 104 18 126/66 (86) 96 Room Air 07/10/16 01:02 103 16 149/80 (103) 93 Room Air 07/10/16 00:02 36.8 96 8 131/62 (85) 95 Room Air 07/10/16 00:01 Room Air 07/09/16 23:02 98 24 120/60 (80) 97 Room Air 07/09/16 22:54 98 17 146/83 (104) 95 Room Air 07/09/16 22:02 101 19 146/83 (104) 96 Room Air Lab Results: Results Past 24 Hours Test 07/09/16 23:56 07/10/16 04:35 07/10/16 10:32 Range/Units Sodium Level 136 134 131 136-145 mmol/L Potassium Level 3.8 3.4 3.5 3.5-5.1 mmol/L Chloride Level 101 100 97 98-107 mmol/L Carbon Dioxide Level 26 25 24 21-32 mmol/L Anion Gap 9.0 9.0 10.0 3-11 mmol/L Blood Urea Nitrogen 8 7 7 7-18 mg/dl Creatinine 0.73 0.63 0.56 0.60-1.40 mg/dl Est Creatinine Clear Calc Drug Dose 56.5 65.4 81.5 ml/min Estimated GFR () 98.7 104.9 110.1 Estimated GFR (Non- 85.2 90.5 95.0 BUN/Creatinine Ratio 10.8 11.3 12.5 10-20 Random Glucose 97 94 100 70-99 mg/dl Calcium Level 7.6 7.9 8.0 8.5-10.1 mg/dl White Blood Count 8.49 4.8-10.8 K/uL Red Blood Count 2.58 4.7-6.1 M/uL Hemoglobin 8.2 14.0-18.0 g/dL Hematocrit 22.8 42-52 % Mean Corpuscular Volume 88.4 80-100 fL Mean Corpuscular Hemoglobin 31.8 25-34 pg Mean Corpuscular Hemoglobin Concent 36.0 32-36 g/dl Platelet Count 214 130-400 K/uL Mean Platelet Volume 8.6 7.4-10.4 fL Neutrophils (%) (Auto) 79.4 % Lymphocytes (%) (Auto) 10.5 % Monocytes (%) (Auto) 7.2 % Eosinophils (%) (Auto) 2.0 % Basophils (%) (Auto) 0.4 % Neutrophils # (Auto) 6.75 1.4-6.5 K/uL Lymphocytes # (Auto) 0.89 1.2-3.4 K/uL Monocytes # (Auto) 0.61 0.11-0.59 K/uL Eosinophils # (Auto) 0.17 0-0.5 K/uL Basophils # (Auto) 0.03 0-0.2 K/uL RDW Standard Deviation 45.5 36.4-46.3 fL RDW Coefficient of Variation 14.0 11.5-14.5 % Immature Granulocyte % (Auto) 0.5 % Immature Granulocyte # (Auto) 0.04 0.00-0.02 K/uL Red Blood Cell Morphology Unremarkable Phosphorus Level 2.8 2.5-4.9 mg/dl Magnesium Level 2.2 2.1 1.8-2.4 mg/dl
[2016-07-11] VITALS (7 sets, daily range): BP systolic 117–162; BP diastolic 69–81; PULSE 91–97; TEMP 36.3–36.8; O2SAT 94–98
[2016-07-11 06:30] LABS: BUN/CREATININE RATIO 10.4 (10-20); CALCIUM 8.3 mg/dl (8.5-10.1); CREATININE 0.57 mg/dl (0.60-1.40); POTASSIUM 3.6 mmol/L (3.5-5.1)
[2016-07-11] MEDS: SODIUM CHLORIDE 1 GM TAB PO SCH ×3 (07:59→20:33)
[2016-07-11] MEDS: PANTOprazole SOD 40 MG TAB PO SCH (07:59)
[2016-07-11] MEDS: FLUTICASONE PROPIONATE NA SPR 16 GM BTL SCH (07:59)
[2016-07-11] MEDS: FUROSEMIDE 20 MG TAB PO SCH ×2 (07:59→17:42)
--- NOTE | 2016-07-11 10:25 | Nephrology Progress Note ---
Nephrology Progress Note Date of Service: Jul 11, 2016. Subjective 85 yo male with SIADH and metastatic pancreatic cancer initially treated with 3% NS and conivaptan and has transitioned to salt tabs, fluid restriction and lasix. pt is comfortable and alert. sodium levels trending down again and was 127 this morning but relatively asymptomatic. spoke to daughter in the room along with patient. Objective Date Time Temp Pulse Resp B/P (MAP) Pulse Ox O2 Delivery O2 Flow Rate FiO2 07/11/16 08:00 Room Air 07/11/16 07:51 36.5 93 18 155/81 (105) 98 Room Air 07/11/16 03:35 36.4 94 16 161/74 (103) 95 Room Air 07/11/16 00:15 36.6 97 16 162/78 (106) 96 Room Air 07/11/16 00:00 Room Air 07/10/16 18:34 36.7 99 20 135/85 (102) 96 Room Air 07/10/16 18:29 Room Air 07/10/16 17:52 36.9 95 18 96 07/10/16 16:02 36.9 95 18 146/82 (103) 96 Room Air 07/10/16 16:00 Room Air 07/10/16 15:32 118 17 130/72 (91) 97 Room Air 07/10/16 15:02 101 20 146/86 (106) 97 Room Air 07/10/16 14:02 95 23 134/70 (91) 92 Room Air 07/10/16 13:02 102 18 127/68 (87) 97 Room Air 07/10/16 12:02 36.9 99 17 118/65 (82) 93 Room Air 07/10/16 12:00 Room Air 07/10/16 11:02 95 19 141/98 (112) 97 Room Air 07/10/16 10:33 100 14 132/73 (92) 96 Physical Exam: General-aaox3, cachectic Eyes-no scleral icterus ENT-mmm, lesion above eye healing well Neck-supple Lungs-cta Heart-rrr Abdomen-bs+ s/nt/nd Extremities-no c/c/e Neuro-nonfocal Current Inpatient Medications Medications (Trade) Dose Ordered Sig/El Route Start Time Stop Time Status Last Admin Dose Admin Enoxaparin Sodium (Lovenox Inj) 40 mg Q24H SC 07/05/16 21:00 08/04/16 20:59 Future hold 07/10/16 20:50 40 MG Acetaminophen (Tylenol Tab) 650 mg Q4H PRN PO 07/05/16 15:45 08/04/16 15:44 Ondansetron HCl (Zofran Inj) 4 mg Q6H PRN IV 07/05/16 15:45 08/04/16 15:44 Fluticasone Propionate (Flonase Nasal [place]) 1 sprays DAILY NA 07/08/16 09:00 08/07/16 08:59 07/11/16 07:59 1 SPRAYS Pantoprazole Sodium (Protonix Tab) 40 mg QAM PO 07/10/16 09:00 08/09/16 08:59 07/11/16 07:59 40 MG Furosemide (Lasix Tab) 20 mg [id number] PO 07/10/16 17:00 08/09/16 16:59 07/11/16 07:59 20 MG Morphine Sulfate (Roxanol Oral Soln) 5 mg Q4 PRN PO 07/10/16 16:30 07/24/16 16:29 Lorazepam (Ativan Tab) 1 mg Q4 PRN SL 07/10/16 16:30 08/09/16 16:29 Sodium Chloride (Sodium Chloride Tab) 2 gm TID PO 07/11/16 14:00 08/09/16 13:59 Last 24 Hours Test 07/10/16 10:32 07/11/16 05:33 Sodium Level 131 mmol/L 127 mmol/L Potassium Level 3.5 mmol/L 3.6 mmol/L Chloride Level 97 mmol/L 91 mmol/L Carbon Dioxide Level 24 mmol/L 26 mmol/L Anion Gap 10.0 mmol/L 10.0 mmol/L Blood Urea Nitrogen 7 mg/dl 6 mg/dl Creatinine 0.56 mg/dl 0.57 mg/dl Est Creatinine Clear Calc Drug Dose 81.5 ml/min 68.2 ml/min Estimated GFR () 110.1 109.3 Estimated GFR (Non- 95.0 94.3 BUN/Creatinine Ratio 12.5 10.4 Random Glucose 100 mg/dl 97 mg/dl Calcium Level 8.0 mg/dl 8.3 mg/dl Magnesium Level 2.1 mg/dl Assessment & Plan SIADH-sodium levels trending down. currently on 800cc fluid restriction, lasix 20 bid and salt tabs one gram po tid. will increase the salt tabs to two gram po tid. to recheck urine osm in am.
--- NOTE | 2016-07-11 15:20 | Hematology/Oncology Prog Note ---
Hematology/Onc Progress Note Date of Service Jul 11, 2016. Diagnoses See below Subjective Mr. Chaudhari reports feeling overall fine today. He has no respiratory complaints. He denies GI complaints currently, last BM yesterday. He states he has no bleeding from any sites. Most of the visit was spent counseling patient's daughter. Review of Systems: Respiratory: + see HPI Vital Signs Vital Signs Past 12 Hours Date Time Temp Pulse Resp B/P (MAP) Pulse Ox O2 Delivery O2 Flow Rate FiO2 07/11/16 14:48 36.8 92 20 117/69 (85) 98 Room Air 07/11/16 11:50 36.3 92 20 138/72 (94) 98 Room Air 07/11/16 08:00 Room Air 07/11/16 07:51 36.5 93 18 155/81 (105) 98 Room Air 07/11/16 03:35 36.4 94 16 161/74 (103) 95 Room Air Physical Exam Constitutional: General Apperance: too thin Level of Distress: NAD Psychiatric: Orientation: to time, to place, to person Memory: recent memory abnormal Lungs: Respiratory Effort: no dyspnea Auscuitation: breath sounds normal Cardiovascular: Heart Auscultation: RRR Abdomen: Bowel Sounds: normal Inspection & Palpation: non-distended, no tenderness, guarding & rebound Laboratory 07/11/16 05:33 Test 07/11/16 05:33 07/11/16 11:10 Anion Gap 10.0 mmol/L (3-11) Est Creatinine Clear Calc Drug Dose 68.2 ml/min Estimated GFR () 109.3 Estimated GFR (Non- 94.3 BUN/Creatinine Ratio 10.4 (10-20) Calcium Level 8.3 mg/dl (8.5-10.1) Urine Osmolality 469 mOms/kg (500-800) Assessment & Plan 1. Pancreatic mass, maximal 4.5 cm in dimension, with intra-abdominal adenopathy , liver and lung lesions suspicious for metastatic disease * CA 19-9 drawn during this hospitalization elevated into 2000 range c/w pancreatic primary * EUS is planned for outpatient per patient's preference, ?still necessary if patient declines systemic treatment ultimately * Discussed with patient's daughter today, family is going to see if PS improves once hyponatremia is under control in outpatient setting and if so, consider biopsy (but recommended only if patient is going to undergo active systemic treatment, otherwise would not recommend) * Daughter understands systemic chemotherapy would only be palliative, patient undecided if he will pursue * General surgery consulted with patient due to encasement of SMA to see if at critical point, no surgical intervention recommended at this time * Patient has poor performance status currently around 3 * Palliative care was on board last week, but no family was at bedside to discuss plan of care and [facility] DRILL DOCTOR is off this week * Overall poor termite exterminator prognosis, patient and family seem to comprehend this 2. Generalized weakness * Likely multifactorial * Advanced malignancy * Hyponatremia * Cachexia 3. S/p fall in hospital concurrent with exacerbation of hyponatremia * No intracranial hemorrhage * Patient has left sided orbital bruising 4. Hyponatremia * SIADH * Correction per hospitalist team and nephrology 5. Intrathoracic hematoma, iatrogenic, from central line placement * Monitoring H+H, roxi at high 7 range, now in 8 range Will continue to follow while patient is hospitalized. Patient should have follow up with medical oncology within 1-2 weeks of discharge, unless patient/ family choose palliative measures only. I performed history and physical examination of the patient. I have discussed the patient's case, impression and plan with Fanny Law PA-C. Her note reflects my findings and plan. Dr. Mike Nix Hem/Onc
[2016-07-11] MEDS: ENOXAPARIN 40 MG/0.4 ML SYR SC SCH (20:33)
[2016-07-11] MEDS ORDERED: SDMC1 PO (21:07)
[2016-07-11] MEDS ORDERED: LSX20 PO (21:07)
[2016-07-11] MEDS ORDERED: RXNS5 PO (21:07)
[2016-07-11] MEDS ORDERED: ATV1 SL (21:07)
--- NOTE | 2016-07-11 21:12 | Discharge Instructions ---
Discharge Instructions Date of Service Jul 11, 2016. Admission Reason for Admission: Hyponatremia Discharge Discharge Diagnosis / Problem: METASTATIC PANCREATIC CARCINOMA /HYPONATREMIA Discharge Goals Goal(s): Decrease discomfort, Diagnostic testing Activity Recommendations Activity Limitations: as noted below ( TOLERATED ) . Instructions / Follow-Up Instructions / Follow-Up FOLLOW UP WITH CANCER SPECIALIST /HEMATOLOGY -ONCOLOGY DR SARAH PIPER IN 2-3 WEEKS FOR FURTHER DISCUSSION OF TREATMENT OPTION FOR METASTATIC CA FAMILY MEDICINE FOLLOW UP IN 1-2 WEEKS , LAB WORK ; BASIC METABOLIC PANEL ONCE A WEEK TO ASSESS SODIUM LEVEL OR EARLIER FOR CONFUSION /CHANGED MENTAL STATUS PLEASE ALLOW LIBERAL AMOUNT OF SALT INTAKE IN FOOD HIGHLY RECOMMEND PALLIATIVE CARE/HOSPICE FOR FURTHER DECLINE OF DISEASE PROCESS Current Hospital Diet Patient's current hospital diet: Regular Diet Discharge Diet Recommended Diet: Regular Diet (HIGH SALT CONTENT ) Fluid Restriction: 1000 ml (4 cups) Pending Studies Studies pending at discharge: yes List of pending studies: BASIC METABLIC PANEL ONCE A WEEK OR EARLIER FOR SIGN OF INCREASED CONFUSION /BALANCE PROBLEM Laboratory Results Lipid Panel Test 07/09/16 05:00 Range/Units Triglycerides Level 66 0-150 mg/dl Cholesterol Level 103 0-200 mg/dl HDL Cholesterol 59 mg/dl Cholesterol/HDL Ratio 1.7 LDL Cholesterol, Calculated 31 mg/dl Medical Emergencies . Who to Call and When: Medical Emergencies: If at any time you feel your situation is an emergency, please call 911 immediately. . Non-Emergent Contact Non-Emergency issues call your: Primary Care Provider . . "Provider Documentation" section prepared by Daya Truong. . VTE Core Measure Inpt VTE Proph given/why not?: Enoxaparin (Lovenox)SQ, SCD's [place] Drug Monitoring Program Search Results: no issues identified (METASTATIC PANCREATIC CANCER )
[2016-07-11] MEDS ORDERED: HOSPITAL BED (21:16)
[2016-07-11] MEDS ORDERED: MISC-796 (21:16)
--- NOTE | 2016-07-11 21:34 | Progress Note ---
Internal Med Progress Note Date of Service: Jul 11, 2016. Provider Documentation: SUBJECTIVE: denies of any pain or discomfort no episodes of confusion playing crossword puzzle Daughter present at bedside Pt requesting to be able to go home OBJECTIVE: Vital Signs-as noted below Exam: General-awake and alert , no distress noted, conversing , HEENT : healed cut on left upper eye brow , suture in place , Lungs-diminished, Heart-regular S1/S2 Abdomen-soft, non tender Extremities-no lower ext edema Neuro-awake and alert , normal orientation , no focal neurological deficit Lab data as noted below. 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 lab work as out pt on 06/07/16 Na 135 - presented with Na 121 /syncope Na level had improved 123-125 with IV NSS pt had improved mental status on 07/06/16 evening -asking appropriate questions regarding his Ca diagnosis early AM 07/07/16 sustained a fall hitting his head became confused , disoriented Na level 115 post concussion appreciate input from Nephrology pt was transferred to ICU for close monitoring of hemodynamics/Rt IJ IV access placed for hypertonic 3% NSS infusion needs slow correction not more than 10 meq /24 hrs Na slowly improved to 131 3% saline D/avni Conivaptan ( vasopressin receptor inhibitor ) gtt started by Supervisor [employer] D/w physician interventional cardiologist -aggressive metastatic ca with very poor prognosis pt and family understands and aware of the diagnosis stable to transfer to Medical floor Hyponatremia will be treated with Salt tab , fluid restrictions and Lasix no aggressive intervention or treatment will not provide any further benefit limit blood draw Central line D/avni Na level 127 today , pt's mental status remains at baseline , no episode of confusion appreciate input by Nephrology Salt tab increased to 2 gm TID , cont Lasix and fluid restriction very poor prognosis given advanced metastatic disease conservative approach would be appropriate pt will be discharged home with above regimen Lab can be drawn once a week or sooner for change in mental status -till family decides on Palliative care Salt tab and Lasix dose can be adjusted according CONFUSION /METABOLIC ENCEPHALOPATHY : due to hyponatremia electrolyte derangement mental status improved to baseline after correction of lytes METASTATIC PANCREATIC MASS, NEW DIAGNOSIS - noted on CT abdomen/pelvis this Admission - new diagnosis with likely hepatic and lung mets CT ABDOMEN /PELVIS WITH IV CONTRAST : 07/05/16 --large heterogeneous and ill-defined mass lesion measuring up to at least 4.5 cm which likely arises from the uncinate process of the pancreas. The posterior to the superior mesenteric artery which is partially encased, and abnormal soft tissue tracks inferiorly along the mesentery. This should be considered a pancreatic neoplasm until proven otherwise. -Multifocal hepatic metastatic disease is again noted. -- Enlarged gastrohepatic lymph nodes likely represent metastatic disease. A peritoneal implant is also identified. - irregular subpleural opacities present at both lung bases -pleural-based metastatic lesions or possibly the sequelae of pulmonary infarcts. previous USG of abdomen on 06/01/16 -no mass or liver mests was noted -given widespread Metastasis with in 6-8 weeks , very aggressive Malignancy suspected extremely poor prognosis -Heme onc consult requested -appreciate input CA 19-9 > 2000 suggestive of pancreatic Adeno CA -very poor prognosis with aggressive metastatic pancreatic CA with wide spread mets in past 3-4 months -vascular consult was requested for SMA stenosis /mass invasion General surgery consult recommend conservative management -pain control no evidence of bowel ischemia /bowel obstruction very poor prognosis -palliative care consulted -Pt's Family Daughter and son does not want to resort to hospice Yet aware of limited life expectancy wants out pt D/w Heme onc in Clinic visit regarding treatment option pt will need Hospital bed -progressive decline in functional status /end stage metastatic CA script for Wheel Chair given -very poor endurance tolerable, ambulatory dysfunction pt will return home with home health not in any pain or discomfort at present DIVERTICULITIS OF DESCENDING COLON - mild acute descending colon diverticulitis noted on CT -leukocytosis has resolve, no abdominal pain or discomfort cultures been negative D/C Abx Limited benefit with Metastatic pancreatic ca with possible colon involvement DVT PROPHYLAXIS high risk for DVT with metastatic ca - SQ Lovenox CODE STATUS DNR/DNI - DISPOSITION Possible discharge home with Home Health Nursing tomorrow Terminal end stage disease with wide spread Metastatic Pancreatic CA Hospice care would be appropriate script given for Hospital bed /Wheel Chair Ralph can be discontinued prior to discharge if pt and family is OK with it Vital Signs: Date Time Temp Pulse Resp B/P (MAP) Pulse Ox O2 Delivery O2 Flow Rate FiO2 07/11/16 19:52 36.6 96 20 121/75 (90) 94 07/11/16 16:00 Room Air 07/11/16 14:48 36.8 92 20 117/69 (85) 98 Room Air 07/11/16 11:50 36.3 92 20 138/72 (94) 98 Room Air 07/11/16 08:00 Room Air 07/11/16 07:51 36.5 93 18 155/81 (105) 98 Room Air 07/11/16 03:35 36.4 94 16 161/74 (103) 95 Room Air 07/11/16 00:15 36.6 97 16 162/78 (106) 96 Room Air 07/11/16 00:00 Room Air Lab Results: Results Past 24 Hours Test 07/11/16 05:33 07/11/16 11:10 Range/Units Sodium Level 127 136-145 mmol/L Potassium Level 3.6 3.5-5.1 mmol/L Chloride Level 91 98-107 mmol/L Carbon Dioxide Level 26 21-32 mmol/L Anion Gap 10.0 3-11 mmol/L Blood Urea Nitrogen 6 7-18 mg/dl Creatinine 0.57 0.60-1.40 mg/dl Est Creatinine Clear Calc Drug Dose 68.2 ml/min Estimated GFR () 109.3 Estimated GFR (Non- 94.3 BUN/Creatinine Ratio 10.4 10-20 Random Glucose 97 70-99 mg/dl Calcium Level 8.3 8.5-10.1 mg/dl Urine Osmolality 469 500-800 mOms/kg
[2016-07-12] VITALS (9 sets, daily range): BP systolic 93–142; BP diastolic 58–79; PULSE 89–107; TEMP 36.3–36.8; O2SAT 96–99
[2016-07-12] MEDS: FLUTICASONE PROPIONATE NA SPR 16 GM BTL SCH (07:52)
[2016-07-12] MEDS: SODIUM CHLORIDE 1 GM TAB PO SCH ×3 (07:52→20:41)
[2016-07-12] MEDS: FUROSEMIDE 20 MG TAB PO SCH (07:53)
[2016-07-12] MEDS: PANTOprazole SOD 40 MG TAB PO SCH (07:53)
--- NOTE | 2016-07-12 11:21 | Nephrology Progress Note ---
Nephrology Progress Note Date of Service: Jul 12, 2016. Subjective 85 yo male with SIADH and metastatic pancreatic cancer initially treated with 3% NS and conivaptan and has transitioned to salt tabs, fluid restriction and lasix. pt is comfortable and alert. sodium levels trending down and was 127 yesterday and increased salt tabs to 2 tid. pt comfortable and wants to go home today. surrounded by multiple family members. questions answered. Objective Date Time Temp Pulse Resp B/P (MAP) Pulse Ox O2 Delivery O2 Flow Rate FiO2 07/12/16 08:30 97 Room Air 07/12/16 07:58 36.6 97 18 141/79 (99) 97 Room Air 07/12/16 03:59 36.8 105 20 142/75 (97) 96 07/12/16 00:00 Room Air 07/11/16 23:50 36.7 91 18 136/73 (94) 97 Room Air 07/11/16 20:00 Room Air 07/11/16 19:52 36.6 96 20 121/75 (90) 94 07/11/16 16:00 Room Air 07/11/16 14:48 36.8 92 20 117/69 (85) 98 Room Air 07/11/16 11:50 36.3 92 20 138/72 (94) 98 Room Air Physical Exam: General-aaox3, cachectic Eyes-no scleral icterus ENT-mmm, lesion above eye healing well Neck-supple Lungs-clear Heart-regular Abdomen-bs+ s/nt/nd Extremities-no c/c/e Neuro-nonfocal Current Inpatient Medications Medications (Trade) Dose Ordered Sig/El Route Start Time Stop Time Status Last Admin Dose Admin Enoxaparin Sodium (Lovenox Inj) 40 mg Q24H SC 07/05/16 21:00 08/04/16 20:59 Future hold 07/11/16 20:33 40 MG Acetaminophen (Tylenol Tab) 650 mg Q4H PRN PO 07/05/16 15:45 08/04/16 15:44 Ondansetron HCl (Zofran Inj) 4 mg Q6H PRN IV 07/05/16 15:45 08/04/16 15:44 Fluticasone Propionate (Flonase Nasal [place]) 1 sprays DAILY NA 07/08/16 09:00 08/07/16 08:59 07/12/16 07:52 1 SPRAYS Pantoprazole Sodium (Protonix Tab) 40 mg QAM PO 07/10/16 09:00 08/09/16 08:59 07/12/16 07:53 40 MG Furosemide (Lasix Tab) 20 mg BID17 PO 07/10/16 17:00 08/09/16 16:59 07/12/16 07:53 20 MG Morphine Sulfate (Roxanol Oral Soln) 5 mg Q4 PRN PO 07/10/16 16:30 07/24/16 16:29 Lorazepam (Ativan Tab) 1 mg Q4 PRN SL 07/10/16 16:30 08/09/16 16:29 Sodium Chloride (Sodium Chloride Tab) 2 gm TID PO 07/11/16 14:00 08/09/16 13:59 07/12/16 07:52 2 GM Assessment & Plan SIADH-sodium levels trending down but alert. increased salt tabs to 2 tid and continues on fluid restriction and lasix. to recheck bmp again now and would recommend rechecking again on sunday. will d/c the carrillo catheter and will try to minimize outpt follow ups if possible. no need to follow up with me. will recheck sodium levels again on sunday or sooner if he becomes confused.
[2016-07-12 13:33] LABS: BUN/CREATININE RATIO 16.3 (10-20); CREATININE 0.68 mg/dl (0.60-1.40); POTASSIUM 3.9 mmol/L (3.5-5.1)
[2016-07-12 13:42] LABS: CALCIUM 8.4 mg/dl (8.5-10.1)
--- NOTE | 2016-07-12 17:27 | Progress Note ---
Medicine Progress Note Date & Time of Visit: Jul 12, 2016 at 17:06. Subjective patient seen resting in bed, comfortable mental status back to baseline per family denies dizziness, dyspnea, chest pain, abdominal pain, nausea eating ok no other symptoms Objective Last 8 Hrs Date Time Temp Pulse Resp B/P (MAP) Pulse Ox O2 Delivery O2 Flow Rate FiO2 07/12/16 16:03 97 Room Air 07/12/16 15:11 36.5 102 18 111/65 (80) 97 Room Air 07/12/16 12:02 36.3 93 22 125/69 (87) 97 Room Air Physical Exam: General- oriented x 3, not in distress, speaks in sentences Head- atraumatic Eyes- EOMI, anicteric ENT- oropharynx clear Neck- supple, no JVD Lungs- clear breath sounds bilaterally Heart- regular rhythm; no murmur, normal rate regular rhythm Abdomen- normal bowel sounds, soft, nontender Extremities- no pretibial edema, no calf tenderness Neuro- alert, oriented x 3; no gross focal deficits Skin- warm & dry Laboratory Results: Last 24 Hours Test 07/12/16 11:57 Sodium Level 127 mmol/L Potassium Level 3.9 mmol/L Chloride Level 93 mmol/L Carbon Dioxide Level 25 mmol/L Anion Gap 9.0 mmol/L Blood Urea Nitrogen 11 mg/dl Creatinine 0.68 mg/dl Est Creatinine Clear Calc Drug Dose 64.4 ml/min Estimated GFR () 101.6 Estimated GFR (Non- 87.7 BUN/Creatinine Ratio 16.3 Random Glucose 105 mg/dl Calcium Level 8.4 mg/dl Assessment & Plan SEVERE HYPONATREMIA Na [address] Diop Lasix increased to 40mg BID continue NaCL Tab 2 tabs TID monitor PRP CONFUSION /METABOLIC ENCEPHALOPATHY : due to hyponatremia electrolyte derangement resolved METASTATIC PANCREATIC MASS, NEW DIAGNOSIS -Heme onc consult requested CA 19-9 > 2000 suggestive of pancreatic [place] CA -very poor prognosis with aggressive metastatic pancreatic CA with wide spread mets in past 3-4 months -vascular consult was requested for SMA stenosis /mass invasion General surgery consult recommend conservative management -pain control no evidence of bowel ischemia /bowel obstruction - very poor prognosis -palliative care consulted -Pt's Family Daughter and son does not want to resort to hospice Yet aware of limited life expectancy wants out pt D/w Heme onc in Clinic visit regarding treatment option pt will need Hospital bed -progressive decline in functional status /end stage metastatic CA patient needs a hospital bed for positioning unavailable in an ordinary bed for comfort script for Wheel Chair given - poor functional status, weakness - anticipate return home tomorrow with home health DIVERTICULITIS OF DESCENDING COLON - mild acute descending colon diverticulitis noted on CT Abdomen cultures been negative s/p antibiotics DVT PROPHYLAXIS high risk for DVT with metastatic ca - SQ Lovenox CODE STATUS DNR/DNI - DISPOSITION Possible discharge home with Home Health Nursing tomorrow Current Inpatient Medications: Current Inpatient Medications Medications (Trade) Dose Ordered Sig/El Route Start Time Stop Time Status Last Admin Dose Admin Enoxaparin Sodium (Lovenox Inj) 40 mg Q24H SC 07/05/16 21:00 08/04/16 20:59 Future hold 07/11/16 20:33 40 MG Acetaminophen (Tylenol Tab) 650 mg Q4H PRN PO 07/05/16 15:45 08/04/16 15:44 Ondansetron HCl (Zofran Inj) 4 mg Q6H PRN IV 07/05/16 15:45 08/04/16 15:44 Fluticasone Propionate (Flonase Nasal [place]) 1 sprays DAILY NA 07/08/16 09:00 08/07/16 08:59 07/12/16 07:52 1 SPRAYS Pantoprazole Sodium (Protonix Tab) 40 mg QAM PO 07/10/16 09:00 08/09/16 08:59 07/12/16 07:53 40 MG Morphine Sulfate (Roxanol Oral Soln) 5 mg Q4 PRN PO 07/10/16 16:30 07/24/16 16:29 Lorazepam (Ativan Tab) 1 mg Q4 PRN SL 07/10/16 16:30 08/09/16 16:29 Sodium Chloride (Sodium Chloride Tab) 2 gm TID PO 07/11/16 14:00 08/09/16 13:59 07/12/16 14:46 2 GM Furosemide (Lasix Tab) 40 mg BID17 PO 07/12/16 17:00 08/09/16 16:59 UNV
[2016-07-12] MEDS: FUROSEMIDE 40 MG TAB PO SCH (17:52)
[2016-07-12] MEDS: ENOXAPARIN 40 MG/0.4 ML SYR SC SCH (20:43)
[2016-07-13] VITALS: O2SAT 99
[2016-07-13 06:40] LABS: BUN/CREATININE RATIO 19.3 (10-20); CALCIUM 8.4 mg/dl (8.5-10.1); CREATININE 0.72 mg/dl (0.60-1.40); POTASSIUM 3.8 mmol/L (3.5-5.1)
[2016-07-13 07:14] VITALS: BP 148/76; PULSE 94; TEMP 36.8; O2SAT 96
[2016-07-13] MEDS: FLUTICASONE PROPIONATE NA SPR 16 GM BTL SCH (07:57)
[2016-07-13] MEDS: FUROSEMIDE 40 MG TAB PO SCH (07:57)
[2016-07-13] MEDS: SODIUM CHLORIDE 1 GM TAB PO SCH ×2 (07:57→13:47)
[2016-07-13] MEDS: PANTOprazole SOD 40 MG TAB PO SCH (07:57)
--- NOTE | 2016-07-13 08:47 | Nephrology Progress Note ---
Nephrology Progress Note Date of Service: Jul 13, 2016. Subjective 85 yo male with SIADH and metastatic pancreatic cancer initially treated with 3% NS and conivaptan and has transitioned to salt tabs, fluid restriction and lasix. pt is comfortable and alert. oob to chair eating breakfast. have increased salt tablets dose and also increased lasix dose as well. Objective Date Time Temp Pulse Resp B/P (MAP) Pulse Ox O2 Delivery O2 Flow Rate FiO2 07/13/16 07:14 36.8 94 20 148/76 (100) 96 Room Air 07/13/16 00:00 99 Room Air 07/12/16 23:59 36.5 107 18 139/72 (94) 96 Room Air 07/12/16 20:00 99 Room Air 07/12/16 18:45 36.7 89 18 93/58 (70) 99 Room Air 07/12/16 16:03 97 Room Air 07/12/16 15:11 36.5 102 18 111/65 (80) 97 Room Air 07/12/16 12:02 36.3 93 22 125/69 (87) 97 Room Air Physical Exam: General-aaox3, cachectic Eyes-no scleral icterus ENT-mmm, lesion above eye healing well Neck-supple Lungs-cta Heart-rrr Abdomen-bs+ s/nt/nd Extremities-no c/c/e Neuro-nonfocal Current Inpatient Medications Medications (Trade) Dose Ordered Sig/El Route Start Time Stop Time Status Last Admin Dose Admin Enoxaparin Sodium (Lovenox Inj) 40 mg Q24H SC 07/05/16 21:00 08/04/16 20:59 Future hold 07/12/16 20:43 40 MG Acetaminophen (Tylenol Tab) 650 mg Q4H PRN PO 07/05/16 15:45 08/04/16 15:44 Ondansetron HCl (Zofran Inj) 4 mg Q6H PRN IV 07/05/16 15:45 08/04/16 15:44 Fluticasone Propionate (Flonase Nasal [place]) 1 sprays DAILY NA 07/08/16 09:00 08/07/16 08:59 07/13/16 07:57 1 SPRAYS Pantoprazole Sodium (Protonix Tab) 40 mg QAM PO 07/10/16 09:00 08/09/16 08:59 07/13/16 07:57 40 MG Morphine Sulfate (Roxanol Oral Soln) 5 mg Q4 PRN PO 07/10/16 16:30 07/24/16 16:29 Lorazepam (Ativan Tab) 1 mg Q4 PRN SL 07/10/16 16:30 08/09/16 16:29 Sodium Chloride (Sodium Chloride Tab) 2 gm TID PO 07/11/16 14:00 08/09/16 13:59 07/13/16 07:57 2 GM Furosemide (Lasix Tab) 40 mg BID17 PO 07/12/16 17:00 08/09/16 16:59 07/13/16 07:57 40 MG Last 24 Hours Test 07/12/16 11:57 07/13/16 05:41 Sodium Level 127 mmol/L 129 mmol/L Potassium Level 3.9 mmol/L 3.8 mmol/L Chloride Level 93 mmol/L 95 mmol/L Carbon Dioxide Level 25 mmol/L 24 mmol/L Anion Gap 9.0 mmol/L 10.0 mmol/L Blood Urea Nitrogen 11 mg/dl 14 mg/dl Creatinine 0.68 mg/dl 0.72 mg/dl Est Creatinine Clear Calc Drug Dose 64.4 ml/min 60.2 ml/min Estimated GFR () 101.6 99.3 Estimated GFR (Non- 87.7 85.7 BUN/Creatinine Ratio 16.3 19.3 Random Glucose 105 mg/dl 96 mg/dl Calcium Level 8.4 mg/dl 8.4 mg/dl Assessment & Plan SIADH-sodium levels are better compared to yesterday. now up to 129. on fluid restriction, salt tablets, and lasix. increased lasix dose yesterday. would recommend rechecking bmp next week as outpt. ok from renal perspective to go home. carrillo removed yesterday and urinating well on his own.
--- NOTE | 2016-07-13 11:52 | Progress Note ---
Medicine Progress Note Date & Time of Visit: Jul 13, 2016 at 11:47. Subjective seen resting in bed, comfortable family at bedside, states he sat and had breakfast this morning no other concerns, hoping to be discharged today patient alert, oriented denies dizziness, chest pain, dyspnea, abdominal pain no other symptoms states he would like to go home today no other symptoms Objective Last 8 Hrs Date Time Temp Pulse Resp B/P (MAP) Pulse Ox O2 Delivery O2 Flow Rate FiO2 07/13/16 08:00 Room Air 07/13/16 07:14 36.8 94 20 148/76 (100) 96 Room Air Physical Exam: General- oriented x 3, not in distress, speaks in sentences Eyes- anicteric Neck- no JVD Lungs- clear breath sounds bilaterally, no rales/wheezes Heart- regular rhythm; no murmur, normal rate regular rhythm Abdomen- normal bowel sounds, soft, nontender Extremities- no pretibial edema, no calf tenderness Neuro- alert, oriented x 3; no gross focal deficits Skin- warm & dry Laboratory Results: Last 24 Hours Test 07/12/16 11:57 07/13/16 05:41 Sodium Level 127 mmol/L 129 mmol/L Potassium Level 3.9 mmol/L 3.8 mmol/L Chloride Level 93 mmol/L 95 mmol/L Carbon Dioxide Level 25 mmol/L 24 mmol/L Anion Gap 9.0 mmol/L 10.0 mmol/L Blood Urea Nitrogen 11 mg/dl 14 mg/dl Creatinine 0.68 mg/dl 0.72 mg/dl Est Creatinine Clear Calc Drug Dose 64.4 ml/min 60.2 ml/min Estimated GFR () 101.6 99.3 Estimated GFR (Non- 87.7 85.7 BUN/Creatinine Ratio 16.3 19.3 Random Glucose 105 mg/dl 96 mg/dl Calcium Level 8.4 mg/dl 8.4 mg/dl Assessment & Plan SEVERE HYPONATREMIA Na improved to [address] Diop Lasix increased to 40mg BID continue NaCL Tab 2 tabs TID fluid restriction 800cc/day repeat Na next week ff up with PCP next week ff up with Dr. Diop in 1 week CONFUSION /METABOLIC ENCEPHALOPATHY : due to hyponatremia electrolyte derangement resolved METASTATIC PANCREATIC MASS, NEW DIAGNOSIS -Heme onc consult requested CA 19-9 > 2000 suggestive of pancreatic [place] CA -very poor prognosis with aggressive metastatic pancreatic CA with wide spread mets in past 3-4 months -vascular consult was requested for SMA stenosis /mass invasion General surgery consult recommend conservative management -pain control no evidence of bowel ischemia /bowel obstruction - very poor prognosis -palliative care consulted -Pt's Family Daughter and son does not want to resort to hospice Yet aware of limited life expectancy wants out pt D/w Heme onc in Clinic visit regarding treatment option pt will need Hospital bed -progressive decline in functional status /end stage metastatic CA patient needs a hospital bed for positioning unavailable in an ordinary bed for comfort script for Wheel Chair given - poor functional status, weakness patient has mobility limitations may improve patient's ability to participate in ADLs patient willing to use wheelchair and daughter will assist patient with the wheelchair - discharge home with home health services today ff up with Oncology next week DIVERTICULITIS OF DESCENDING COLON - mild acute descending colon diverticulitis noted on CT Abdomen cultures been negative - no abdominal pain - has received 5 days of ZOsyn DVT PROPHYLAXIS high risk for DVT with metastatic ca - SQ Lovenox given CODE STATUS DNR/DNI DISPOSITION discharge home with Home Health Nursing ff up with PCP, Nephrology and Oncology next week discussed case and plan of care with patient's and daughter all questions answered they are comfortable and agreeable with plan of care Current Inpatient Medications: Current Inpatient Medications Medications (Trade) Dose Ordered Sig/El Route Start Time Stop Time Status Last Admin Dose Admin Enoxaparin Sodium (Lovenox Inj) 40 mg Q24H SC 07/05/16 21:00 08/04/16 20:59 Future hold 07/12/16 20:43 40 MG Acetaminophen (Tylenol Tab) 650 mg Q4H PRN PO 07/05/16 15:45 08/04/16 15:44 Ondansetron HCl (Zofran Inj) 4 mg Q6H PRN IV 07/05/16 15:45 08/04/16 15:44 Fluticasone Propionate (Flonase Nasal [place]) 1 sprays DAILY NA 07/08/16 09:00 08/07/16 08:59 07/13/16 07:57 1 SPRAYS Pantoprazole Sodium (Protonix Tab) 40 mg QAM PO 07/10/16 09:00 08/09/16 08:59 07/13/16 07:57 40 MG Morphine Sulfate (Roxanol Oral Soln) 5 mg Q4 PRN PO 07/10/16 16:30 07/24/16 16:29 Lorazepam (Ativan Tab) 1 mg Q4 PRN SL 07/10/16 16:30 08/09/16 16:29 Sodium Chloride (Sodium Chloride Tab) 2 gm TID PO 07/11/16 14:00 08/09/16 13:59 07/13/16 07:57 2 GM Furosemide (Lasix Tab) 40 mg BID17 PO 07/12/16 17:00 08/09/16 16:59 07/13/16 07:57 40 MG
[2016-07-13] MEDS ORDERED: LSX40 PO (11:54)
--- NOTE | 2016-07-13 12:10 | Discharge Instructions ---
Discharge Instructions Date of Service Jul 13, 2016. Admission Reason for Admission: Hyponatremia Discharge Discharge Diagnosis / Problem: HYPONATREMIA, PANCREATIC MASS, POSSIBLE CANCER WITH SPREAD TO OTHER ORGANS Discharge Goals Goal(s): Diagnostic testing, Therapeutic intervention Activity Recommendations Activity Limitations: as noted below (as tolerated) . Instructions / Follow-Up Instructions / Follow-Up PLEASE CALL PRIMARY CARE PHYSICIAN OR RETURN TO ER IMMEDIATELY IF WITH RECURRENCE OF SYMPTOMS, CHANGES IN MENTAL STATUS, CHANGE IN BALANCE, FEVER/CHILLS, WEAKNESS, POOR APPETITE. REVIEW NEW MEDICATION LIST AND FOLLOW INSTRUCTIONS CAREFULLY. RESTRICT FLUID INTAKE TO NOT MORE THAN 800 ML/DAY. REPEAT BLOODWORK FOR SODIUM LEVEL ON SUNDAY JULY 17, 2016. FOLLOW UP WITH PRIMARY CARE PHYSICIAN DR. DALAL ON TUESDAY JULY 19, 2016 AT 1130AM. FOLLOW UP WITH ONCSherley- KIDNEY SPECIALIST AND DR. SARAH PIPER/SHE CHANCE - CANCER SPECIALIST IN 1-2 WEEKS. Current Hospital Diet Patient's current hospital diet: Regular Diet Discharge Diet Recommended Diet: Regular Diet Pending Studies Studies pending at discharge: yes List of pending studies: REPEAT BLOODWORK FOR SODIUM LEVEL ON SUNDAY JULY 17, 2016. THEN REGULARLY. Laboratory Results Lipid Panel Test 07/09/16 05:00 Range/Units Triglycerides Level 66 0-150 mg/dl Cholesterol Level 103 0-200 mg/dl HDL Cholesterol 59 mg/dl Cholesterol/HDL Ratio 1.7 LDL Cholesterol, Calculated 31 mg/dl Medical Emergencies . Who to Call and When: Medical Emergencies: If at any time you feel your situation is an emergency, please call 911 immediately. . Non-Emergent Contact Non-Emergency issues call your: Primary Care Provider Call Non-Emergent contact if: you have a fever, your pain is not controlled, you have any medication questions . 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 "Provider Documentation" section prepared by Ervin Hannon. . VTE Core Measure Inpt VTE Proph given/why not?: Enoxaparin (Lovenox)SQ, SCD's [place] Drug Monitoring Program Search Results: patient reviewed within database, no issues identified
--- NOTE | 2016-07-13 12:28 | Discharge Summary ---
Discharge Summary Date of Service Jul 13, 2016. Discharge Summary Admission Date: July 05, 2016 at 15:48 Discharge Date: Jul 13, 2016 Discharge Disposition: Home with services Principal Diagnosis: SEVERE HYPONATREMIA, IN THE SETTING OF POSSIBLE METASTATIC PANCREATIC MASS, NEWLY DIAGNOSED Secondary Diagnoses/Problems: PLEASE REFER TO HOSPITAL COURSE BELOW. Procedures: CT SCAN OF THE ABDOMEN AND PELVIS WITH IV CONTRAST CLINICAL HISTORY: Pancreatic mass. Abdominal pain. COMPARISON STUDY: Abdominal CT scans dated 07/05/2016 and 01/22/2016. TECHNIQUE: Following the IV administration of 118 cc of Optiray 320, CT scan of the abdomen and pelvis is performed from the lung bases to the proximal femora. Images are reviewed in the axial, sagittal, and coronal planes. IV contrast was administered without complication Automated dose control exposure was utilized. The examination is significantly degraded by motion artifact. CT DOSE: 459.28 mGy.cm FINDINGS: Lung bases: The heart is mildly enlarged and without pericardial effusion. The coronary arteries are densely calcified. Chronic interstitial changes seen at both lung bases. Subpleural densities at both lung bases are unchanged from yesterday. No airspace consolidation is identified typical for pneumonia and there is no pleural effusion. There is a small to moderate hiatal hernia. Fluid fills the distal esophagus which appears to be thick walled. Liver: The contrast-enhanced liver is normal in size, contour, and attenuation. There is no intrahepatic biliary ductal dilatation. The hepatic veins and portal veins are patent. A subcentimeter cyst in the left lobe and scattered granulomas are unchanged. There are numerous (greater than 10) low-attenuation hepatic lesions consistent with multifocal hepatic metastatic disease. The largest lesion is in the left lobe as seen on image #79 and measures 2.5 cm. Gallbladder: Unremarkable. Spleen: Normal in size and attenuation. There are numerous calcified splenic granulomas. Pancreas: The pancreas is moderately atrophic. The pancreatic duct is normal in caliber. There is unchanged appearance of an ill-defined/infiltrative lesion which likely arises from the uncinate process. This measures approximately 4.5 x 3 cm as seen on axial image #156. This is located posterior to the superior mesenteric artery which is partially encased, and the lesion extends inferiorly along the mesentery. This also abuts the left renal vein as seen on image #158. Adrenal glands: There is nodularity of the adrenal glands. Kidneys: The contrast-enhanced kidneys are atrophic and without hydronephrosis. A 3 cm staghorn calculus is again seen in the left kidney. A 2 cm cyst is noted in the interpolar left kidney. Additional subcentimeter cortical hypodensities also likely represent cysts but are too small for definitive characterization. The kidneys enhance symmetrically. Abdominal vasculature: The abdominal aorta is normal in course and caliber noting advanced atherosclerotic calcification. Bowel: No bowel obstruction is identified. There is advanced colonic diverticulosis. Mild wall thickening and pericolic stranding involving the distal descending colon is similar to yesterday and suggests mild acute diverticulitis. No intraperitoneal free air or abscess is seen. The appendix is normal as visualized. Peritoneum: There is no intraperitoneal free. Trace perisplenic fluid is observed. An 11 mm mesenteric implant is seen in the ventral abdomen on image #183. Lymphadenopathy: There is an enlarged gastrohepatic lymph node seen on image #111 which measures 3.0 x 2.8 cm. Prominent retroperitoneal lymph nodes measure up to 8 mm in short axis. Pelvic viscera: Evaluation of the pelvis is significantly degraded by streak artifact from hip arthroplasties. Postoperative change is seen in the groin bilaterally. The bladder is grossly normal as visualized. The prostate gland appears enlarged but is not well-visualized. Skeletal structures: The Skeletal structures are osteopenic. Mild to moderate lumbosacral spondylosis is observed. There is a mild and age indeterminate compression deformity of T11. There are bilateral hip arthroplasties. No lytic or blastic lesions are seen. IMPRESSION: 1. Significantly motion degraded examination. 2. There is advanced colonic diverticulosis with mild acute diverticulitis again suggested involving the distal descending colon. There is no intraperitoneal free air or evidence of abscess. 3. There is unchanged appearance of a large heterogeneous and ill-defined mass lesion measuring up to at least 4.5 cm which likely arises from the uncinate process of the pancreas. This is posterior to the superior mesenteric artery which is partially encased, and abnormal soft tissue tracks inferiorly along the mesentery. This should be considered a pancreatic neoplasm until proven otherwise. 4. Multifocal hepatic metastatic disease is again noted. 5. Enlarged gastrohepatic lymph nodes likely represent metastatic disease. A peritoneal implant is also identified. 6. A staghorn calculus is again seen in the left kidney. 7. Unchanged appearance of irregular subpleural opacities present at both lung bases as compared to yesterday. Top differential considerations remain pleural-based metastatic lesions or possibly the sequelae of pulmonary infarcts. If there is strong clinical concern for pulmonary emboli then a CT angiogram of the chest should be considered. 8. Cardiomegaly and hiatal hernia. 9. Circumferential wall thickening is suggested in the distal esophagus. Cortical clinically for evidence of esophagitis. If further evaluation is desired then endoscopy would be appropriate. 10. Additional findings as above. Electronically signed by: Duc Britt M.D. 07/06/2016 2:46 PM Consultations: GASTROENTEROLOGY YELENA FONSECA, ONCOLOGIST DR. SARAH NIX, OLDER WORKER SPECIALIST DR. BRUMFIELD, SURGEON DR. LUDWIG Pending Studies/Follow-Up: REPEAT SODIUM FOR Sunday07/15/16, THEN FOLLOW UP WEEKLY; NEEDS TO FOLLOW UP WITH [facility]- NEPHROLOGY, DR. NIX- ONCOLOGY, YELENA FONSECA- GI Medication Reconciliation New Medications: Lorazepam (Ativan) 0.5 Mg Tab 0.5 MG PO Q6H PRN for anxiety, #10 TAB 0 Refills Misc. Devices (Wheelchair) 1 Mis Mis EA, #1 Tramadol (Ultram) 50 Mg Tab 1 TAB PO TID PRN for Pain, #10 TAB 0 Refills [Hospital Bed] () Furosemide (Furosemide) 40 Mg Tab 40 MG PO BID17 for 30 Days, #60 TAB 2 Refills Sodium Chloride (Sodium Chloride) 1 Gm Tab 2 GM PO TID for 30 Days, #180 TAB Continued Medications: Lutein-Zeaxanthin (Lutein) 1 Cap Cap 1 CAP PO Q2D Pantoprazole (Protonix) 40 Mg Tab 40 MG PO DAILY, #30 TAB Ranitidine Hcl (Zantac) 300 Mg Tab 300 MG PO HS, TAB Discontinued Medications: Aspirin (Aspirin EC Low Dose) 81 Mg Ectab 81 MG PO DAILY Pravastatin (Pravachol ) 20 Mg Tab 20 MG PO DAILY, TAB Admission Information HPI (per Admitting provider): 85 year old male who presents to the ER with weakness and fall. Patient reports he does not remember what exactly happened today. Some history is obtained from his . Patient has been being seen by his PCP for the past month for abdominal pain. Per outpatient documentation, patient has been reporting epigastric discomfort. He was started on a PPI and H2 tanmay. He also had an RUQ US that was unremarkable. Patient reports to be pain has been in the LLQ and is exacerbated by eating. He reports his PO intake has been poor since every time he eats it causes pain. Per patient's , patient was sitting at the table filling out some paperwork when he asked her to complete it because he couldn't. He said he was too weak. He then got up to go upstairs and she reports he was very wobbly and had a distant look in his eyes. He then fell onto the stairs and hit his head. He did not loose consciousness. Patient reports he has been having normal bowel movements. He notes a 20 pound weight loss in the past year. He reports his appetite has been good. No nausea or vomiting. He denies chest pain and shortness of breath. He denies fever and chills. No urinary symptoms. In the ER, patient's sodium level is found to be 121. Orthostatic blood pressures were positive. 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 Patient was given IVF and IV Zosyn. 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 - presented with Na 121 /syncope early AM 07/07/16 sustained a fall hitting his head became confused , disoriented Na level 115 post concussion - pt was transferred to ICU for close monitoring of hemodynamics/Rt IJ IV access placed for hypertonic 3% NSS infusion Na slowly improved Conivaptan ( vasopressin receptor inhibitor ) gtt started by Cooperative Extension Agent - evaluated by On[facility]- Industrial Order Clerk placed on salt tabs, lasix, fluid restriction - Na on discharge day 129 - plan for discharge: Lasix 40mg BID NaCL Tab 2g TID fluid restriction 800cc/day repeat Na on Sunday07/17/16, then weekly ff up with Dr. Diop in 1-2 weeks appreciate input from Nephrology CONFUSION /METABOLIC ENCEPHALOPATHY due to hyponatremia electrolyte derangement mental status improved to baseline after correction of lytes METASTATIC PANCREATIC MASS, NEW DIAGNOSIS - noted on CT abdomen/pelvis this Admission - new diagnosis with likely hepatic and lung mets CT ABDOMEN /PELVIS WITH IV CONTRAST : 07/05/16 --large heterogeneous and ill-defined mass lesion measuring up to at least 4.5 cm which likely arises from the uncinate process of the pancreas. The posterior to the superior mesenteric artery which is partially encased, and abnormal soft tissue tracks inferiorly along the mesentery. This should be considered a pancreatic neoplasm until proven otherwise. -Multifocal hepatic metastatic disease is again noted. -- Enlarged gastrohepatic lymph nodes likely represent metastatic disease. A peritoneal implant is also identified. - irregular subpleural opacities present at both lung bases -pleural-based metastatic lesions or possibly the sequelae of pulmonary infarcts. - previous USG of abdomen on 06/01/16 -no mass or liver mets was noted -given widespread Metastasis with in 6-8 weeks , very aggressive Malignancy suspected -Heme onc consulted Dr. Nix/S[facility], per their notes: "CA 19-9 > 2000 c/w pancreatic primary * EUS is planned for outpatient per patient's preference, ?still necessary if patient declines systemic treatment ultimately * Discussed with patient's daughter, family is going to see if PS improves once hyponatremia is under control in outpatient setting and if so, consider biopsy (but recommended only if patient is going to undergo active systemic treatment, otherwise would not recommend) * Daughter understands systemic chemotherapy would only be palliative, patient undecided if he will pursue * General surgery consulted with patient due to encasement of SMA to see if at critical point, no surgical intervention recommended at this time * Patient has poor performance status currently around 3 * Overall poor detention prognosis, patient and family seem to comprehend this" -Pt's Family Daughter and son does not want to resort to hospice Yet aware of limited life expectancy wants out pt D/w Heme onc in Clinic visit regarding treatment option - pt will return home with home health services ff up with Oncologist in 1-2 weeks for continuation of discussion re: treatment goals DIVERTICULITIS OF DESCENDING COLON - mild acute descending colon diverticulitis noted on CT - leukocytosis has resolved, no abdominal pain or discomfort cultures been negative - no abdominal pain - has received 5 days of ZOsyn DVT PROPHYLAXIS high risk for DVT with metastatic ca - SQ Lovenox given CODE STATUS DNR/DNI DISPOSITION discharge home with Home Health Nursing ff up with PCP next week ff up Nephrology and Oncology in 1 -2 weeks discussed case and plan of care with patient's and daughter all questions answered they are comfortable and agreeable with plan of care Total time spent on discharge = 65 minutes This includes examination of the patient, discharge planning, medication reconciliation, and communication with other providers. Discharge Instructions Discharge Instructions Date of Service Jul 13, 2016. Admission Reason for Admission: Hyponatremia Discharge Discharge Diagnosis / Problem: HYPONATREMIA, PANCREATIC MASS, POSSIBLE CANCER WITH SPREAD TO OTHER ORGANS Discharge Goals Goal(s): Diagnostic testing, Therapeutic intervention Activity Recommendations Activity Limitations: as noted below (as tolerated) . Instructions / Follow-Up Instructions / Follow-Up PLEASE CALL PRIMARY CARE PHYSICIAN OR RETURN TO ER IMMEDIATELY IF WITH RECURRENCE OF SYMPTOMS, CHANGES IN MENTAL STATUS, CHANGE IN BALANCE, FEVER/CHILLS, WEAKNESS, POOR APPETITE. REVIEW NEW MEDICATION LIST AND FOLLOW INSTRUCTIONS CAREFULLY. RESTRICT FLUID INTAKE TO NOT MORE THAN 800 ML/DAY. REPEAT BLOODWORK FOR SODIUM LEVEL ON SUNDAY JULY 17, 2016. FOLLOW UP WITH PRIMARY CARE PHYSICIAN DR. DALAL ON TUESDAY JULY 19, 2016 AT 1130AM. FOLLOW UP WITH ONCSherley- KIDNEY SPECIALIST AND DR. SARAH NIX/SHE CHANCE - CANCER SPECIALIST IN 1-2 WEEKS. Current Hospital Diet Patient's current hospital diet: Regular Diet Discharge Diet Recommended Diet: Regular Diet Pending Studies Studies pending at discharge: yes List of pending studies: REPEAT BLOODWORK FOR SODIUM LEVEL ON SUNDAY JULY 17, 2016. THEN REGULARLY. Laboratory Results Lipid Panel Test 07/09/16 05:00 Range/Units Triglycerides Level 66 0-150 mg/dl Cholesterol Level 103 0-200 mg/dl HDL Cholesterol 59 mg/dl Cholesterol/HDL Ratio 1.7 LDL Cholesterol, Calculated 31 mg/dl Medical Emergencies . Who to Call and When: Medical Emergencies: If at any time you feel your situation is an emergency, please call 911 immediately. . Non-Emergent Contact Non-Emergency issues call your: Primary Care Provider Call Non-Emergent contact if: you have a fever, your pain is not controlled, you have any medication questions . 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 "Provider Documentation" section prepared by Ervin Hannon. . VTE Core Measure Inpt VTE Proph given/why not?: Enoxaparin (Lovenox)SQ, SCD's
[2016-07-13 13:05] VITALS: BP 148/76; PULSE 94; TEMP 36.8; O2SAT 96
[2016-07-13] MEDS ORDERED: LORA-741 PO (13:26)
[2016-07-13] MEDS ORDERED: TRAM-10 PO (13:26)
--- NOTE | 2016-08-15 17:19 | Nephrology Consultation ---
Nephrology Consultation Date of Consultation: Jul 07, 2016. 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 Plan is for output EUS bx. Since admission his sNa has ranged from 122-125; labs from today are pending. He had been receiving NS at 75 mL hourly since admission; I/ O may be incomplete but are essentially even. Unfortunately he got up to bathroom this am at about 6 and fell> now w/ contusion and concussion, hiccups, needed several stitches L brow; his sodium this am after being stable for over 48 hrs dropped to 115. He has been mostly alert and oriented though uncomfortable since admission. Last evening overnight he became more confused and needed 1:1 care; this was discontinued early this am as he was doing better ; unfortunately shortly after that he got out of bed and fell, hitting his head. his MS is completely altered / different this am. He has not been Has been having significant abd pain and N since admission, though both were improved as of yesterday pm per hospital physician. No prior hx of low sodium except for the first time in June 2016 had sNa 134. Per daughter very infrequent use of NSAIDS; none recently. Past Medical/Surgical History Medical Problems: (1) Renal colic on right side Status: Acute -failure to thrive (BMI 18) -GERD/hiatal hernia -hyperlipidemia -L staghorn calculus Family History Patient reports no known family medical history. Social History Smoking Status: Former Smoker Alcohol Use: none Drug Use: none Marital Status: Housing Status: lives with significant other Occupation Status: retired Allergies Coded Allergies: POLLEN (Verified Allergy, Intermediate, SNEEZE, 07/09/16) Medications Current Inpatient Medications Medications (Trade) Dose Ordered Sig/El Route Start Time Stop Time Status Last Admin Dose Admin Enoxaparin Sodium (Lovenox Inj) 40 mg Q24H SC 07/05/16 21:00 08/04/16 20:59 Future Hold 07/06/16 20:46 40 MG Acetaminophen (Tylenol Tab) 650 mg Q4H PRN PO 07/05/16 15:45 08/04/16 15:44 Ondansetron HCl (Zofran Inj) 4 mg Q6H PRN IV 07/05/16 15:45 08/04/16 15:44 Aspirin (Ecotrin Tab) 81 mg DAILY PO 07/06/16 09:00 08/05/16 08:59 Future Hold 07/06/16 09:17 81 MG Pantoprazole Sodium (Protonix Tab) 40 mg DAILY PO 07/06/16 09:00 08/05/16 08:59 07/06/16 09:17 40 MG Ranitidine HCl (zANTac TAB) 300 mg HS PO 07/05/16 21:00 08/04/16 20:59 07/06/16 20:45 300 MG Piperacillin Sod/ Tazobactam Sod (Consult) 1 ea UD PRN N/A 07/05/16 17:00 08/04/16 16:59 Piperacillin Sod/ Tazobactam Sod 3.375 gm/Dextrose 115 ml @ 28.75 mls/ hr Q8H IV 07/06/16 00:00 07/16/16 00:00 07/07/16 00:30 28.75 MLS/HR Ioversol (Optiray 320) 125 ml UD PRN IV 07/06/16 11:45 07/10/16 11:44 Home Meds and Scripts Medications Dose Route/Sig Max Daily Dose Days Date Category Lutein (Lutein-Zeaxanthin) 1 Cap Cap 1 Cap PO Q2D 07/05/16 Reported Aspirin EC Low Dose (Aspirin) 81 Mg Ectab 81 Mg PO DAILY 07/05/16 Reported Pravachol (Pravastatin Sodium) 20 Mg Tab 20 Mg PO DAILY 07/05/16 Reported Protonix (Pantoprazole) 40 Mg Tab 40 Mg PO DAILY 07/05/16 Reported Zantac (Ranitidine HCl) 300 Mg Tab 300 Mg PO HS 07/05/16 Reported Review of Systems unable to obtain d/t clinical condition Physical Exam Date Time Temp Pulse Resp B/P (MAP) Pulse Ox O2 Delivery O2 Flow Rate FiO2 07/07/16 04:00 Room Air 07/07/16 03:23 36.5 89 21 175/92 (119) 98 Room Air 07/06/16 23:59 Room Air 6/1/17 23:01 36.4 93 20 171/94 (119) 97 Room Air 07/06/16 20:00 Room Air 07/06/16 16:00 Room Air 07/06/16 15:34 36.4 91 18 154/81 (105) 99 Room Air 144/76 (98) 128/76 (93) 07/06/16 12:00 Room Air 07/06/16 11:17 36.4 98 18 131/75 (93) 91 Room Air General Appearance: + moderate distress (on 1:1; agitated), + cachetic Eyes: EOMI, + pertinent finding (L brow laceration) Neck: supple Respiratory/Chest: no respiratory distress, + decreased breath sounds Cardiovascular: regular rate, rhythm Abdomen: normal bowel sounds, non tender, soft Extremities: no pedal edema Neurologic/Psych: + disoriented Skin: no jaundice, warm/dry, no rash Diagnostics Last 24 Hours Test 07/07/16 04:44 07/07/16 06:11 07/07/16 06:13 Diagnostic Radiology: CT abd/pelvis w/ IV cont -4.5 cm pancreatic mass partially encasing superior mes artery w/ multiple hepatic metastatic lesions and enlarged gastrohepatic LN -irregular bibasilar lung opacities c/w possible pleural mets versus sequelae of pulmonary infarct -cardiomegaly, hiatal hernia -distal esophageal circumferential wall thickening concerning for esophagitis Head and cervical spine ct >> no acute intracranial process; no fractures or acute trauma Assessment & Plan 85 y/o M w/ previously good health admitted w/ fall, noted to have generalized weakness, wt loss and found to have sNa 121 and 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 Hyponatremia hypoosmolar most consistent w/ euvolemic hyponatremia euvolemic hyponatremia, not likely SIADH however but will need similar mgt; structural lung disease (possibly the pleural lesions for example) may contribute to this; he has been treated so far as if he were dehydrated which makes sense from hx/presentation but has to date not responded clinically and shift in approach needed -agree w/ d/c NS -goal sNa is 128 for tomorrow am -f/u pending labs and based on this will suggest optimal therapy>>likely combo of aggressive hydration and diuretics w/ goal of free water diuresis but need to see today's labs first -recheck urine osms, ur Na today -would check bmp every 6 hrs at this point for now; keep K about 4 -magnesium level pending -will limit po fluid to 1.2L; does not appear to have even been approaching this though Appreciate consult; will follow with you.
== END 2016-07-13 14:16 | disposition home health service (06) | DRG 643 ==
LOC: ENRESERVDT → ENRESERVTM → EDBD 11:14 → C.EDC 11:15 → C.2T 15:48 → ENRESERV 07-07 10:07 → C.MSICU 07-07 10:19 → ENRESERV 07-10 16:49 → C.4E 07-10 18:05
PROVIDERS: ADMIT Hospitalist; ATTEND Internal Medicine
PROC: 0HQ1XZZ Repair Face Skin, External Approach (ICD-10-PCS; principal; 2016-07-07)
PROC: 02HV33Z Insertion of Infusion Device into Superior Vena Cava, Percutaneous Approach (ICD-10-PCS; 2016-07-07)
DX: E22.2 Syndrome of inappropriate secretion of antidiuretic hormone (principal); G93.41 Metabolic encephalopathy; C25.9 Malignant neoplasm of pancreas, unspecified; C78.00 Secondary malignant neoplasm of unspecified lung; C78.7 Secondary malignant neoplasm of liver and intrahepatic bile duct; K57.32 Diverticulitis of large intestine without perforation or abscess without bleeding; I97.638 Postprocedural hematoma of a circulatory system organ or structure following other circulatory system procedure; R64 Cachexia; Z68.1 Body mass index [BMI] 19.9 or less, adult; R55 Syncope and collapse; S01.112A Laceration without foreign body of left eyelid and periocular area, initial encounter; E78.5 Hyperlipidemia, unspecified; Z51.81 Encounter for therapeutic drug level monitoring; Z79.899 Other long term (current) drug therapy; Z79.82 Long term (current) use of aspirin; Z66 Do not resuscitate; Z91.81 History of falling; Z87.442 Personal history of urinary calculi; Z87.891 Personal history of nicotine dependence; W18.39XA Other fall on same level, initial encounter; Y92.009 Unspecified place in unspecified non-institutional (private) residence as the place of occurrence of the external cause; Y99.8 Other external cause status; W19.XXXA Unspecified fall, initial encounter; Y92.230 Patient room in hospital as the place of occurrence of the external cause; Y84.8 Other medical procedures as the cause of abnormal reaction of the patient, or of later complication, without mention of misadventure at the time of the procedure; Y92.239 Unspecified place in hospital as the place of occurrence of the external cause

== ENCOUNTER → 2016-07-17 | Outpatient (CLI) | payer OTHER ==
[~2016-07-17] MED LIST changes: -CEPH500C2 PO; -FLUV80TA PO; +HOSPITAL BED; +LORA-741 PO; +LSX40 PO; +LUTE15CA PO; -LUTEIN PO; +MISC-796; -MULT-506 PO; +PANT1TAB48 PO; +RANI300T2 PO; +SDMC1 PO; +TRAM-10 PO
[2016-07-17 12:27] LABS: ALT/SGPT 31 U/L (12-78); BLOOD UREA NITROGEN 18 mg/dl (7-18); BUN/CREATININE RATIO 21.5 (10-20); CARBON DIOXIDE 28 mmol/L (21-32); CHLORIDE 99 mmol/L (98-107); CREATININE 0.84 mg/dl (0.60-1.40); GLUCOSE 107 mg/dl (70-99); POTASSIUM 3.7 mmol/L (3.5-5.1); SODIUM 136 mmol/L (136-145)
[2016-07-17 12:29] LABS: ALB/GLOB RATIO 0.8 (0.9-2); ALKALINE PHOSPHATASE 89 U/L (45-117); AST/SGOT 19 U/L (15-37)
[2016-07-17 12:30] LABS: CALCIUM 9.3 mg/dl (8.5-10.1)
--- NOTE | 2016-07-26 06:39 | CODING QUERY NO DIAGNOSIS ---
Valid Physician Order Needed A valid physician order must be submitted in order to properly bill for the service(s) provided, including date of service(s), valid diagnosis, and physician signature. If these tests are done on a recurring basis the original physican order must be submitted in order to code and bill for the service(s) provided. Please fax us the original, signed physician order so that we may expedite billing to [phone] DOS 07/17/16 * [facility] Thank you Natalie [facility] Information Management
== END | disposition home or self-care (01) ==
LOC: C.LABSPEC 11:48
PROVIDERS: ATTEND Family Medicine
DX: E87.1 Hypo-osmolality and hyponatremia (principal)